=== PATIENT | male | born 1990 | race African-American/Black ===

== ENCOUNTER 2017-03-14 23:19 | Inpatient (IN) ==
[2017-03-14] MEDS ORDERED: SODIUM CHLORIDE 0.9% 1,000 ML IV STA (23:53)
--- NOTE | 2017-03-15 00:02 | Emergency Department Note ---
Arrival - Arrival Chief Complaint: Sickle Cell Stated Complaint: Sickle Cell ED Nursing Triage Note: Patient to ED via EMS from [facility] in [place] with c/o SCC. Patient is scheduled to have blood transfusion in [place] on Friday but for the past 2 days patient has been in severe pain all over and could not wait anymore. patient was given ativan 2mg prior to leaving [facility]. Mode of Arrival: Stretcher Limitations: No Limitations Source: Patient, Old Records Reviewed Time Seen by Provider: 03/14/17 23:53 - History of Present Illness HPI Narrative: This 26-year-old black male sickle cell patient currently residing in [facility] for psychiatric disorders presents with 2 days of progressive severe joint pain from his sickle cell disease in its usual distribution. He denies chills, fever, or shortness of breath. Currently he is lethargic after receiving Ativan at the [facility] before leaving. Onset (ago): day(s) (Patient presents with 2 days of symptoms) Allergies/Adverse Reactions: Allergies Allergy/AdvReac Type Severity Reaction Status Date / Time morphine Allergy HIVES Verified 03/14/17 23:31 naproxen [From Aleve] Allergy HIVES Verified 03/14/17 23:31 Review of System - Review of System 12 point system: reviewed and no additional remarkable complaints except as stated - Review of System Constitutional: Present: as per HPI Musculoskeletal: Present: as per HPI Psychiatric: Present: as per HPI Medical,Surgical,& Family Hx - Medical History Cardio: History of: Cardiovascular Problems (heart murmur) Psychological: History of: Psychiatric Problems (insomnia , thought disorder) Hematology: History of: Sickle Cell Disease - Surgical History Abdominal Surgeries: Surgical HX of: Cholecystectomy Orthopedic Surgeries: Surgical HX of;: Orthopedic Surgery (right hip surgery) - Social History Smoking Status: Smoker, status unknown Frequency of Alcohol Use: None Type of Drug Use: None Exam Physical Examination: GENERAL: Well developed, well nourished black male in no acute distress. HEENT: Normocephalic. No trauma. Moist mucous membranes. EOMI. PERRLA. ENT NML NECK: Supple. No adenopathy. CARDIAC: Regular. No murmurs. Heart rate 78 CHEST: Clear to auscultation. No respiratory distress. O2 sat 93% ABDOMEN: Soft. Nontender. Active bowel sounds. EXTREMITIES: No trauma. Complains of pain with range of motion all large joints. No pedal edema. SKIN: No diaphoresis. No rash. NEURO: Alert. Neuro intact no focal deficits. Vital Signs: Vital Signs Temperature 97.7 F 03/14/17 23:19 Pulse Rate 78 03/14/17 23:19 Respiratory Rate 18 03/15/17 01:14 Blood Pressure 134/52 03/14/17 23:19 O2 Sat by Pulse Oximetry 98 03/15/17 01:05 Course - Reevaluation(s) Reevaluation #1: Patient advised of need of stabilization with admission. - Consultations Consultation #1: Discussed with hospitalist service who will admit for further evaluation treatment. Results - Labs CBC & BMP: 03/14/17 00:30 03/14/17 00:30 Labs: I reviewed the laboratory noted the elevated white blood cell count, reticulocyte count, depressed hematocrit, and elevated LDH. - Diagnostic Findings Procedure: Chest x-ray: image reviewed by me, report reviewed by me (Severe cardiomegaly with pulmonary venous hypertension redistribution cephalad) Disposition Clinical Impression: Sickle cell crisis, Cardiomegaly Case discussed with: patient Disposition: Still a Patient Condition: Guarded Time of Disposition: 01:21
[2017-03-15] MEDS ORDERED: MEPERIDINE 25 MG/1 ML VIAL IV STA ×2 (00:52→00:53)
[2017-03-15] MEDS ORDERED: ONDANSETRON 4 MG/2 ML VIAL IV STA (00:53)
[2017-03-15] MEDS ORDERED: ONDANSETRON 4 MG/2 ML VIAL ONE (00:55)
[2017-03-15] MEDS ORDERED: MEPERIDINE 25 MG/1 ML VIAL ONE (00:56)
[2017-03-15 01:03] LABS: Basophils # 0.1 10*3/uL (0.0-0.2); Basophils % 0.4 % (0.0-0.8); Eosinophils # 0.9 10*3/uL (0.0-0.87); Eosinophils % 4.1 % (0.00-10.9); Hematocrit 19.3 VOL% (42.0-52.0); Hemoglobin 7.1 GM/DL (14.0-18.0); Immature Granulocytes % 2.8 %; Lymphocytes # 2.7 10*3/uL (1.4-4.0); Lymphocytes % 12.9 % (21.2-54.2); Mean Corpuscular HGB Conc 36.8 GM/DL (32-36); Mean Corpuscular Hemoglobin 35 PG (27-34); Mean Corpuscular Volume 94.1 FL (87-102); Mean Platelet Volume 11.9 FL (9.6-12.0); Monocytes # 2.5 10*3/uL (0.11-0.8); Monocytes % 11.6 % (1.7-12.7); NRBC # 0.85 10*3/uL; Neutrophils # 14.4 10*3/uL (1.4-7.4); Neutrophils % 68.2 % (38.7-73.9); Platelet Count 210 T/CUMM (130-400); Red Blood Count 2.05 MC/CUMM (3.8-5.5); Red Cell Distribution Width 23.3 % (9.3-17.3); White Blood Count 21.2 T/CUMM (4-12)
[2017-03-15 01:09] LABS: Albumin 3.6 G/DL (3.4-5.0); Bilirubin,Total 4.3 MG/DL (0.2-1.0); Osmolality,Calculated 280.5 MOS/KG (273-304); Potassium 5.3 MMOL/L (3.5-5.1); Total Protein 6.3 G/DL (6.4-8.3)
--- NOTE | 2017-03-15 02:37 | Hospitalist History & Physical ---
<Yumi Velazquez - Last Filed: 03/15/17 02:51> Assessment and Plan - Time spent with patient Time spent with patient: Greater than 30 minutes (1) Sickle cell crisis Status: Chronic Assessment and plan: Patient will receive IV fluids for hydration, pain medications as needed, and oxygen. Will need to find out patient's current home medications and continue them as appropriate. Current Visit: Yes (2) Leukocytosis Status: Acute Assessment and plan: Will draw blood cultures and look for source of infection. Will start patient on Rocephin in the meantime. Current Visit: Yes (3) Anemia Status: Chronic Assessment and plan: Will type and match patient for possible blood transfusion. Will recheck lab work. Current Visit: Yes History of Present Illness Chief complaint: leg, back, and chest pain History of present illness: Called to the ER for Mr. Miryam Donohue who is a 26 year old male that is a resident of [facility] in [place] where he is treated for insomnia and thought disorder. He presents to the ER tonight complaining of leg, back, and chest pain that started 2 weeks ago and has progressively gotten worse. Patient is followed by a physician at [facility] for his sickle cell and is suppose to have a blood transfusion in 2 days. He denies fever or shortness of breath but admits to increased weakness. He received 2mg of Ativan for agitation before leaving [facility]. In the ER, he received 1L NS, total of 50mg of Demerol IV, and Zofran 4mg IV. His WBC was 21k, H/H 7/19, Retic 26, K 5.3, LDH 635, AST 134, ALT 90, Bilirubin 4.3. He is a poor historian. Upon admission, he will receive NS @ 150mL/hr, pain medication as needed, oxygen , and Rocephin. Allergies Allergy/AdvReac Type Severity Reaction Status Date / Time morphine Allergy HIVES Verified 03/14/17 23:31 naproxen [From Aleve] Allergy HIVES Verified 03/14/17 23:31 Medical,Surgical,& Family Hx - Medical History Cardio: History of: Cardiovascular Problems (heart murmur) Psychological: History of: Psychiatric Problems (insomnia , thought disorder) Hematology: History of: Sickle Cell Disease - Surgical History Abdominal Surgeries: Surgical HX of: Cholecystectomy Orthopedic Surgeries: Surgical HX of;: Orthopedic Surgery (right hip surgery) - Social History Smoking Status: Smoker, status unknown Frequency of Alcohol Use: None Type of Drug Use: None Lives With:: residential center Functional capacity: independent ambulation - Constitutional Constitutional: Present: fatigue, weakness. Absent: chills, fever(s), headache( s), night sweats - Cardiovascular Cardiovascular: Present: chest pain at rest. Absent: dyspnea - Respiratory Respiratory: Absent: cough, dyspnea - Gastrointestinal Gastrointestinal: Absent: abdominal pain, diarrhea, nausea, vomiting - Musculoskeletal Musculoskeletal: Present: back pain, muscle cramps Exam - Constitutional Vitals: Period Temp Pulse Resp BP Sys/Rowley Pulse Ox Last 24 Hr 97.7 F-97.7 F 78-78 18-20 134-134/52-52 93-98 General appearance: normal weight, other (Somnolent but will awaken to speech. ) - Head Head exam: Present: normal inspection, normocephalic - Eye Eye exam: Present: EOMI Pupils: Present: PARISH, normal accommodation - ENT ENT exam: Present: normal exam - Neck Neck exam: Present: normal inspection - Respiratory Respiratory exam: Present: clear to auscultation bilaterally. Absent: accessory muscle use (Respirations even and non-labored. Symmetrical rise and fall of chest. ) - Cardiovascular Cardiovascular exam: Present: regular rate and rhythm - GI/Abdominal GI/Abdominal exam: Present: normal bowel sounds, soft. Absent: distended, tenderness - Extremities Exam Extremities exam: Present: normal inspection, normal capillary refill, full ROM - Back Exam Back exam: Present: normal inspection - Neurological Exam Neurological exam: Present: alert, oriented X3 - Psychiatric Psychiatric exam: Present: flat affect - Skin Skin exam: Present: normal color, warm, dry Results - Labs CBC & BMP: 03/14/17 00:30 03/14/17 00:30 Lab Results: I have reviewed the past 24 hour labs - Diagnostic Findings Procedure: Chest x-ray: image reviewed by me (Slight cardiomegaly, otherwise normal) <Rebeka Desouza - Last Filed: 03/15/17 04:18> History of Present Illness History of present illness: Mr. Miryam Donohue is a 26 year old male with a history of pyschiatry disorder and sickle cell disease is on admission for pain crisis.His WBC is noted to be high at 21.2 and potassium of 5.3.Patient was seen, examined and discussed with the [employer] Plan IVF IV pain meds,antiemetics, BC, UA, UC, CXR Empiric IV Rocephin Repeat Labs, retic count in am. Reconcile home meds Exam - Constitutional Vitals: Period Temp Pulse Resp BP Sys/Rowley Pulse Ox Last 24 Hr 97.7 F-98.1 F 78-95 18-22 128-141/52-78 93-100 Results - Labs CBC & BMP: 03/14/17 00:30 03/14/17 00:30
[2017-03-15] MEDS ORDERED: SODIUM POLYSTYRENE SULFATE 15 GM/60 ML BOTTLE PO STA (02:42)
[2017-03-15] MEDS: SODIUM CHLORIDE 0.9% 1,000 ML IV SCH ×3 (03:07→17:28)
[2017-03-15] MEDS: HYDROmorphone 2 MG/1 ML VIAL IV SCH ×7 (03:10→21:53)
[2017-03-15] MEDS: cefTRIAXone 1,000 MG in SODIUM CHLORIDE 0.9% 100 ML IV SCH ×2 (03:23→15:41)
[2017-03-15] MEDS ORDERED: PNEUMOCOCCAL VACCINE (13 VALENT) 0.5 ML SYRINGE IM ONE (03:58)
[2017-03-15 04:59] LABS: Anisocytosis 2+; Band Neutrophils 2 % (0-10); Elliptocytes 1+; Eosinophils 5 % (0-10); Hypochromasia 2+; Lymphocytes 8 % (20-55); Macrocytosis 2+; Metamyelocytes 2 %; Microcytosis 1+; Nucleated Red Blood Cells 8 (0-5); Ovalocytes 2+; Platelet Estimate Normal; Segmented Neutrophils 74 % (50-85); Sickle Cells 1+; Total Cells Counted 100
[2017-03-15 05:00] LABS: Target Cells 1+
[2017-03-15 06:33] LABS: Albumin 3.4 G/DL (3.4-5.0); Bilirubin,Total 3.6 MG/DL (0.2-1.0); Calcium 8.8 MG/DL (8.5-10.1); Osmolality,Calculated 277.5 MOS/KG (273-304); Potassium 5.6 MMOL/L (3.5-5.1); Total Protein 6.1 G/DL (6.4-8.3)
[2017-03-15 07:13] LABS: Basophils # 0.1 10*3/uL (0.0-0.2); Basophils % 0.3 % (0.0-0.8); Eosinophils # 0.7 10*3/uL (0.0-0.87); Hematocrit 18.9 VOL% (42.0-52.0); Hemoglobin 6.9 GM/DL (14.0-18.0); Immature Granulocytes % 4.1 %; Immature Granulocytes Absolute 0.94 #; Lymphocytes # 3.4 10*3/uL (1.4-4.0); Lymphocytes % 14.7 % (21.2-54.2); Mean Corpuscular HGB Conc 36.5 GM/DL (32-36); Mean Corpuscular Hemoglobin 34 PG (27-34); Mean Platelet Volume 11.9 FL (9.6-12.0); Monocytes # 2.6 10*3/uL (0.11-0.8); Monocytes % 11.4 % (1.7-12.7); Neutrophils # 15.2 10*3/uL (1.4-7.4); Neutrophils % 66.5 % (38.7-73.9); Platelet Count 182 T/CUMM (130-400); Red Blood Count 2.01 MC/CUMM (3.8-5.5); Red Cell Distribution Width 22.8 % (9.3-17.3); White Blood Count 22.9 T/CUMM (4-12)
--- NOTE | 2017-03-15 07:21 | XRay Report ---
Exam: XR chest 1V portable Date: 03/14/2017 11:56 PM Indication: Shortness of breath Comparison: None Technical: AP portable Findings: Cardiomegaly is present. External cardiac leads are present. Mediastinum and bony structures reveal no acute findings. Impression: 1. Cardiomegaly without decompensation. PROCEDURE INTERPRETED AT [facility] DEPARTMENT OF RADIOLOGY Final Report Signed by: Dr. Ajit Hirsch
[2017-03-15 07:59] LABS: Band Neutrophils 1 % (0-10); Eosinophils 2 % (0-10); Hypochromasia 2+; Lymphocytes 16 % (20-55); Microcytosis 1+; Nucleated Red Blood Cells 3 (0-5); Segmented Neutrophils 74 % (50-85); Sickle Cells 1+; Total Cells Counted 100
[2017-03-15 08:00] LABS: Howell-Jolly Bodies Few; Platelet Estimate Adequate; Spherocytes Few
--- NOTE | 2017-03-15 08:12 | EKG Report ---
Stationary ECG Study [facility] Test Date: 03/15/2017 8:13:10 AM Pat Name: MIGUE BAINS Department: Room: 432 Gender: M Real Estate Development Manager: UZAIR : 1990 Requested by: Yumi Velazquez Order Number: [id number] Reading MD: HIRO IRAHETA Intervals [place] Rate: 92 P: 59 NV: 196 QRS: 86 QRSD: 102 T: 6 QT: 343 QTc: 393 Interpretive Statements SINUS RHYTHM LEFT VENTRICULAR HYPERTROPHY AND ST-T CHANGE Electronically Signed On 03-17-17 10:55:04 CDT by HIRO IRAHETA [email or web address]
[2017-03-15] MEDS: PANTOPRAZOLE 40 MG TABLET PO SCH (08:49)
[2017-03-15] MEDS: ENOXAPARIN 40 MG/0.4 ML SYRINGE SUBCUT SCH (08:51)
--- NOTE | 2017-03-15 12:54 | Hospitalist Progress Note ---
Hospitalist: Subjective Interval history: 26 year old male who is a resident of [facility] in [place] where he was being treated for insomnia and getting mental health. Patient was admitted with sickle cell crisis. He still reports body aches and pains but is not in any sort of distress. Exam - Constitutional Vitals: Period Temp Pulse Resp BP Sys/Rowley Pulse Ox Last 24 Hr 97.7 F-98.8 F 78-95 18-22 128-145/52-78 92-100 Exam: General: No Acute Distress HEENT: Normocephalic, atraumatic, Extra ocular movements intact Neck: Supple, No JVD Chest: Clear to auscultation B/L CV: S1 + S2 audible without murmur, gallop or rub Abd: soft, NT, Non-distended, BS + Ext: No edema Skin: No purpura, bruising or rash Rheumatologic: No Joint deformities Neurologic: Strength 5/5 all extremities, no gross sensory deficits Results - Labs CBC & BMP: 03/15/17 04:57 03/15/17 04:57 Lab Results: I have reviewed the past 24 hour labs - Impressions Sickle cell painful crisis Status: Acute Assessment and plan: Patient is getting IV fluids for hydration, pain medications as needed, and oxygen. Patient is getting IV Dilaudid 2 mg every 3 hours as needed as well as [place] 10 mg as needed Current Visit: Yes Anemia of sickle cell disease Status: Acute Assessment and plan: Patient will be transfused as needed to keep his hematocrit around 25 Current Visit: Yes Leukocytosis Status: Acute Assessment and plan: I suspect this is from his sickle cell crisis, will follow up on blood cultures , will discontinue Rocephin if no evidence of infection Current Visit: Yes Hyperkalemia Status: Acute Assessment and plan: This is mild, will continue to monitor Current Visit: Yes Hyperbilirubinemia Status: Acute Assessment and plan: Appears to be due to hemolysis as his LDH was also elevated at 635, monitor periodically Current Visit: Yes DVT prophylaxis with Lovenox
[2017-03-15] MEDS ORDERED: ACETAMINOPHEN 500 MG TABLET PO PRN (16:47)
[2017-03-16] MEDS: SODIUM CHLORIDE 0.9% 1,000 ML IV SCH ×3 (00:47→14:51)
[2017-03-16] MEDS: HYDROmorphone 2 MG/1 ML VIAL IV SCH ×9 (00:47→22:47)
[2017-03-16] MEDS: cefTRIAXone 1,000 MG in SODIUM CHLORIDE 0.9% 100 ML IV SCH ×2 (03:31→17:01)
[2017-03-16] MEDS: ONDANSETRON 4 MG/2 ML VIAL IV PRN ×3 (05:23→13:37)
[2017-03-16 06:48] LABS: Basophils # 0.1 10*3/uL (0.0-0.2); Basophils % 0.3 % (0.0-0.8); Eosinophils # 0.6 10*3/uL (0.0-0.87); Hemoglobin 6.7 GM/DL (14.0-18.0); Immature Granulocytes % 1.9 %; Immature Granulocytes Absolute 0.57 #; Lymphocytes # 2.7 10*3/uL (1.4-4.0); Lymphocytes % 8.8 % (21.2-54.2); Mean Corpuscular HGB Conc 38.5 GM/DL (32-36); Mean Corpuscular Hemoglobin 34 PG (27-34); Mean Corpuscular Volume 88.8 FL (87-102); Mean Platelet Volume 11.1 FL (9.6-12.0); Monocytes # 3.8 10*3/uL (0.11-0.8); Monocytes % 12.4 % (1.7-12.7); NRBC # 1.45 10*3/uL; Neutrophils % 74.6 % (38.7-73.9); Platelet Count 212 T/CUMM (130-400); Red Blood Count 1.96 MC/CUMM (3.8-5.5); Red Cell Distribution Width 22.5 % (9.3-17.3); White Blood Count 30.8 T/CUMM (4-12)
[2017-03-16 07:12] LABS: Calcium 8.5 MG/DL (8.5-10.1); Osmolality,Calculated 274.8 MOS/KG (273-304); Potassium 4.8 MMOL/L (3.5-5.1)
[2017-03-16 07:17] LABS: Hematocrit 17.4 VOL% (42.0-52.0)
[2017-03-16 07:41] LABS: Eosinophils 3 % (0-10); Hypochromasia 1+; Lymphocytes 12 % (20-55); Nucleated Red Blood Cells 1 (0-5); Platelet Estimate Adequate; Polychromasia Slight; Segmented Neutrophils 76 % (50-85); Sickle Cells 2+; Target Cells Slight; Total Cells Counted 100
[2017-03-16] MEDS: ENOXAPARIN 40 MG/0.4 ML SYRINGE SUBCUT SCH (09:07)
[2017-03-16] MEDS: PANTOPRAZOLE 40 MG TABLET PO SCH (09:12)
[2017-03-16] MEDS ORDERED: SODIUM CHLORIDE 0.9% 250 ML IV PRN (09:23)
--- NOTE | 2017-03-16 12:54 | Hospitalist Progress Note ---
Hospitalist: Subjective Interval history: 26 year old male who is a resident of [facility] in [place] where he was being treated for insomnia and getting mental health. Patient was admitted with sickle cell crisis. He reports body aches and pains but is not in any sort of distress. Exam - Constitutional Vitals: Period Temp Pulse Resp BP Sys/Rowley Pulse Ox Last 24 Hr 99.3 F-100.5 F 88-129 20-40 125-143/60-78 92-99 Exam: General: No Acute Distress HEENT: Normocephalic, atraumatic, Extra ocular movements intact Neck: Supple, No JVD Chest: Clear to auscultation B/L CV: S1 + S2 audible without murmur, gallop or rub Abd: soft, NT, Non-distended, BS + Ext: No edema Skin: No purpura, bruising or rash Rheumatologic: No Joint deformities Neurologic: Strength 5/5 all extremities, no gross sensory deficits Results - Labs CBC & BMP: 03/16/17 06:28 03/16/17 06:28 - Impressions - Impressions Sickle cell painful crisis Status: Acute Assessment and plan: Patient is getting IV fluids for hydration, folic acid, pain medications as needed, and oxygen. Patient is getting IV Dilaudid 2 mg every 3 hours as needed as well as [place] 10 mg as needed Current Visit: Yes Anemia of sickle cell disease Status: Acute Assessment and plan: Patient will be transfused as needed to keep his hematocrit around 25. He was transfused 2 unit PRBCs 03/15 Current Visit: Yes Leukocytosis Status: Acute Assessment and plan: I suspect this is from his sickle cell crisis, monitoring blood cultures, will discontinue Rocephin if no evidence of infection Current Visit: Yes Hyperkalemia Status: Acute Assessment and plan: This resolved without treatment Current Visit: Yes Hyperbilirubinemia Status: Acute Assessment and plan: Appears to be due to hemolysis as his LDH was also elevated, monitor periodically Current Visit: Yes DVT prophylaxis with Lovenox
[2017-03-16] MEDS: OLANZapine 5 MG TABLET PO SCH (13:36)
[2017-03-16 14:08] LABS: Apearance,Urine CLEAR (Clear); Bilirubin,Urine Negative (Negative); Blood, Urine Moderate mg/dL (Negative); Glucose,Urine (UA) Negative (Negative); Ketones,Urine Negative (Negative); Mucus,Urine Occasional /LPF (Occasional); Nitrite,Urine Negative (Negative); Protein,Urine 100 MG/DL; RBC,Urine 1 /HPF (0-4); Urine Color Amber (Yellow); Urine Specific Gravity 1.008 (1.001-1.035); WBC,Urine 2 /HPF (0-6)
--- NOTE | 2017-03-16 14:09 | XRay Report ---
Exam: XR chest 1V portable Date: 03/16/2017 9:24 AM Indication: Fever history of sickle cell disease Comparison: 03/15/2017 Technical: AP Findings: Mild cardiac enlargement present. Interstitial edema present and tiny effusions in the bases bilaterally. Oxygen tubing superimposes exam. Mediastinum is intact. No pneumothorax. Impression: 1. Cardiomegaly with mild interstitial edema and probable component of acute chest syndrome with history of sickle cell disease PROCEDURE INTERPRETED AT [facility] DEPARTMENT OF RADIOLOGY Final Report Signed by: Dr. Ajit Hirsch
[2017-03-16] MEDS ORDERED: HYDROmorphone 2 MG/1 ML VIAL IV STA (16:23)
[2017-03-16] MEDS: FOLIC ACID 1 MG TABLET PO SCH (22:47)
[2017-03-17] MEDS: HYDROmorphone 2 MG/1 ML VIAL IV SCH ×12 (00:11→23:04)
[2017-03-17] MEDS: SODIUM CHLORIDE 0.9% 1,000 ML IV SCH ×5 (01:18→23:06)
[2017-03-17] MEDS: cefTRIAXone 1,000 MG in SODIUM CHLORIDE 0.9% 100 ML IV SCH ×2 (04:04→15:47)
[2017-03-17] MEDS: ONDANSETRON 4 MG/2 ML VIAL IV PRN ×2 (04:06→07:55)
[2017-03-17 05:57] LABS: Basophils # 0.1 10*3/uL (0.0-0.2); Basophils % 0.2 % (0.0-0.8); Eosinophils # 0.4 10*3/uL (0.0-0.87); Eosinophils % 1.5 % (0.00-10.9); Hematocrit 20.1 VOL% (42.0-52.0); Immature Granulocytes % 1.2 %; Immature Granulocytes Absolute 0.34 #; Lymphocytes # 2.3 10*3/uL (1.4-4.0); Lymphocytes % 8.2 % (21.2-54.2); Mean Corpuscular HGB Conc 38.3 GM/DL (32-36); Mean Corpuscular Hemoglobin 33 PG (27-34); Mean Corpuscular Volume 85.9 FL (87-102); Mean Platelet Volume 11.9 FL (9.6-12.0); Monocytes # 3.8 10*3/uL (0.11-0.8); Monocytes % 13.7 % (1.7-12.7); NRBC # 1.13 10*3/uL; Neutrophils # 20.6 10*3/uL (1.4-7.4); Neutrophils % 75.2 % (38.7-73.9); Platelet Count 197 T/CUMM (130-400); Red Blood Count 2.34 MC/CUMM (3.8-5.5); Red Cell Distribution Width 19.9 % (9.3-17.3); White Blood Count 27.4 T/CUMM (4-12)
[2017-03-17 06:08] LABS: Hemoglobin 7.7 GM/DL (14.0-18.0)
[2017-03-17 06:27] LABS: Elliptocytes Few; Eosinophils 1 % (0-10); Giant Platelets Few; Hypochromasia 1+; Lymphocytes 10 % (20-55); Macrocytosis Slight; Nucleated Red Blood Cells 5 (0-5); Platelet Estimate Adequate; Polychromasia Slight; Segmented Neutrophils 75 % (50-85); Sickle Cells 1+; Target Cells Few; Total Cells Counted 100
[2017-03-17] MEDS ORDERED: SODIUM CHLORIDE 0.9% 250 ML IV PRN ×2 (07:43→08:23)
--- NOTE | 2017-03-17 07:46 | Hematology Consult ---
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 I will hold off on transfer to a tertiary center for red cell exchange for now. I would go ahead and give 2 units of packed red cells to decrease the concentration of his hemoglobin SS red cells. I agree with hydration and antibiotics. He needs encouragement to take deep breaths to open up more lung tissue to recruit further alveolar oxygen exchange. If he does acutely decompensated over the next day or 2, there would be no choice but to transfer him to a tertiary center for red cell exchange. This would most likely be manifested by worsening oxygen saturations. Current Visit: Yes (2) Sickle cell crisis Status: Chronic Current Visit: Yes (3) Leukocytosis Status: Acute Current Visit: Yes (4) Anemia Status: Chronic Current Visit: Yes History of Present Illness - Consult Narrative History of present illness: Mr. Miryam Donohue is a 26 year old male with a history of sickle cell disease who is currently admitted with a sickle cell pain crisis. Chest x-ray yesterday was consistent with bilateral infiltrates and interstitial edema. Is also having mild hypoxia requiring 2 L nasal cannula. There is concern for acute chest syndrome so hematology was consulted for evaluation. He received 2 units of blood yesterday and his hemoglobin has improved to 7.7. He takes shallow breaths upon my evaluation today and he has bilateral crackles at the bases. This is most likely related to atelectasis from poor inhalation. He is on Rocephin for antimicrobial coverage. He is being aggressively rehydrated. He appears stable and is not in any acute distress at this time. His biggest complaint is of pain on bilateral rib cages. He states his usual pain with pain crises is in his back and legs. CC: Rach Hall MD - Home Medications and Allergies Home Medications: Home Medications Medication Instructions Recorded Confirmed Type ARIPiprazole [Aripiprazole] 5 mg PO DAILY 03/15/17 03/16/17 History Citalopram [CeleXA] 20 mg PO DAILY 03/15/17 03/15/17 History Deferasirox [Jadenu] 360 mg PO DAILY 03/15/17 03/16/17 History Duloxetine HCl [Duloxetine] 60 mg PO DAILY 03/15/17 03/16/17 History Folic Acid 0.8 mg PO DAILY 03/15/17 03/16/17 History Hydrocodone/Acetaminophen [[place] 1 each PO Q4-6H PRN 03/15/17 03/15/17 History 10-325 Tablet] Morphine Sulfate [Morphine Sulfate 30 mg PO BID PRN 03/15/17 03/15/17 History ER] OLANZapine [Olanzapine] 10 mg PO DAILY 03/15/17 03/16/17 History Oxycodone HCl/Acetaminophen 1 each PO Q6HR 03/15/17 03/16/17 History [Percocet 10-325 mg Tablet] traMADol TAB [Ultram] 50 mg PO Q6H PRN 03/15/17 03/15/17 History traZODone [Desyrel] 150 mg PO BEDTIME 03/15/17 03/15/17 History Allergies/Adverse Reactions: Allergies Allergy/AdvReac Type Severity Reaction Status Date / Time morphine Allergy HIVES Verified 03/14/17 23:31 naproxen [From Aleve] Allergy HIVES Verified 03/14/17 23:31 Medical,Surgical,& Family Hx - Medical History Cardio: History of: Cardiovascular Problems (heart murmur) Psychological: History of: Psychiatric Problems (insomnia , thought disorder) Hematology: History of: Sickle Cell Disease - Surgical History Abdominal Surgeries: Surgical HX of: Cholecystectomy Orthopedic Surgeries: Surgical HX of;: Orthopedic Surgery (right hip surgery) - Social History Smoking Status: Smoker, status unknown Frequency of Alcohol Use: None Type of Drug Use: None 12 point system: reviewed and no additional remarkable complaints except as stated - Constitutional Constitutional: Absent: chills, fever(s) - Respiratory Respiratory: Present: dyspnea. Absent: cough, wheezing - Gastrointestinal Gastrointestinal: Absent: abdominal pain - Musculoskeletal Musculoskeletal ROS: Present: as per HPI Exam - Constitutional Vitals: Period Temp Pulse Resp BP Sys/Rowley Pulse Ox Last 24 Hr 5 F-100.2 F 88-120 16-44 124-155/67-90 89-99 General appearance: normal weight, no acute distress - Head Head Exam: Present: normocephalic, atraumatic - Eye Eye Exam: Present: EOMI Pupils: Present: PERRL - ENT ENT exam: Present: normal exam, normal oropharynx - Neck Neck exam: Present: lymphadenopathy, thyromegaly - Respiratory Respiratory exam: Present: chest wall tenderness, other (Crackles at bilateral bases). Absent: accessory muscle use, wheezes - Cardiovascular Cardiovascular exam: Present: tachycardia. Absent: JVD, systolic murmur - GI/Abdominal GI/Abdominal exam: Present: soft. Absent: ascites, distended, mass - Neurological Exam Neurological exam: Present: alert, oriented X3 - Psychiatric Psychiatric exam: Present: normal affect, normal mood - Skin Skin exam: Present: warm, dry Results - Labs CBC & BMP: 03/17/17 04:44 03/16/17 06:28 Lab Results: I have reviewed the past 24 hour labs - Diagnostic Findings Procedure: Chest x-ray: report reviewed by me
[2017-03-17] MEDS: FOLIC ACID 1 MG TABLET PO SCH ×2 (08:01→20:37)
[2017-03-17] MEDS: ENOXAPARIN 40 MG/0.4 ML SYRINGE SUBCUT SCH (08:01)
[2017-03-17] MEDS: PANTOPRAZOLE 40 MG TABLET PO SCH (08:01)
[2017-03-17] MEDS: OLANZapine 5 MG TABLET PO SCH (08:02)
--- NOTE | 2017-03-17 15:55 | Hospitalist Progress Note ---
Hospitalist: Subjective Interval history: 26-year-old -[place]oc[place] male with sickle cell crisis and acute chest syndrome. He still has sickle cell pain, but is also being transfused and managed medically. Exam - Constitutional Vitals: Period Temp Pulse Resp BP Sys/Rowley Pulse Ox Last 24 Hr 5 F-100.2 F 90-120 16-44 130-155/64-90 89-993 Exam: General: No Acute Distress HEENT: Normocephalic, atraumatic, Extra ocular movements intact Neck: Supple, No JVD Chest: Clear to auscultation B/L CV: S1 + S2 audible without murmur, gallop or rub Abd: soft, NT, Non-distended, BS + Ext: No edema Skin: No purpura, bruising or rash Rheumatologic: No Joint deformities Neurologic: Strength 5/5 all extremities, no gross sensory deficits Results - Labs CBC & BMP: 03/17/17 04:44 03/16/17 06:28 - Impressions - Impressions Sickle cell painful crisis Status: Acute Assessment and plan: Patient is getting IV fluids for hydration, folic acid, pain medications as needed, and oxygen. Patient is getting IV Dilaudid 2 mg every 3 hours as needed as well as [place] 10 mg as needed. Appreciate hematology following Current Visit: Yes Anemia of sickle cell disease Status: Acute Assessment and plan: Patient will be transfused as needed to keep his hematocrit around 25. He was transfused 2 unit PRBCs 03/16 & 03/17 Current Visit: Yes Leukocytosis Status: Acute Assessment and plan: I suspect this is from his sickle cell crisis, monitoring blood cultures, will discontinue Rocephin if no evidence of infection Current Visit: Yes Hyperkalemia Status: Acute Assessment and plan: This resolved without treatment Current Visit: Yes Hyperbilirubinemia Status: Acute Assessment and plan: Appears to be due to hemolysis as his LDH was also elevated, monitor periodically Current Visit: Yes DVT prophylaxis with Lovenox
[2017-03-18] MEDS: HYDROmorphone 2 MG/1 ML VIAL IV SCH ×12 (00:09→22:22)
[2017-03-18] MEDS: cefTRIAXone 1,000 MG in SODIUM CHLORIDE 0.9% 100 ML IV SCH ×2 (03:51→14:45)
[2017-03-18] MEDS: SODIUM CHLORIDE 0.9% 1,000 ML IV SCH ×2 (06:36→14:46)
--- NOTE | 2017-03-18 07:59 | Hematology Progress Note ---
Assessment and Plan (1) Acute chest syndrome Status: Acute Current Visit: Yes (2) Sickle cell crisis Status: Chronic Current Visit: Yes (3) Leukocytosis Status: Acute Current Visit: Yes (4) Anemia Status: Chronic Current Visit: Yes Hematology Subjective PN Interval history: Mr. Whipple states that his pain is slightly improved today. He still requires 4 L of oxygen to keep his sats above 90%. He is sitting in bed this morning and does not appear to be in acute distress. He was transfused 2 units of blood yesterday. He states he was previously on monthly red cell exchange program at [facility]. He has not done this now 5 or 6 months. He states that each time he had an exchange done he felt worse for 1-2 days so he stopped going. He did note that he had less pain crisis though while he remained on the exchange program. His CBC is pending this morning. I also ordered a reticulocyte count and LDH. I discussed with him today about the possible need of transfer to [facility] for a red cell exchange. I told him that he appears stable and is slowly improving so we will hold off for now but if he worsens at all we will need to do so. Also, if he does not improve much further over the next 24- 48 hours, we should consider it then. He is requesting an increase in his pain medications and I told him he needs to discuss this with his primary doctor when they round on him. Exam - Constitutional Vitals: Period Temp Pulse Resp BP Sys/Rowley Pulse Ox Last 24 Hr 98.3 F-99.8 F 90-131 16-22 130-168/64-89 90-993 General appearance: normal weight, no acute distress - Head Head Exam: Present: normocephalic, atraumatic - Eye Eye Exam: Present: EOMI Pupils: Present: PERRL - ENT ENT exam: Present: normal exam, normal oropharynx - Neck Neck exam: Absent: lymphadenopathy, thyromegaly - Respiratory Respiratory exam: Absent: accessory muscle use, wheezes - Cardiovascular Cardiovascular exam: Present: tachycardia. Absent: JVD, systolic murmur - GI/Abdominal GI/Abdominal exam: Present: soft. Absent: distended, firm, mass - Neurological Exam Neurological exam: Present: alert, oriented X3 - Psychiatric Psychiatric exam: Present: normal affect, normal mood - Skin Skin exam: Present: warm, dry Results - Labs CBC & BMP: 03/17/17 04:44 03/16/17 06:28 Lab Results: I have reviewed the past 24 hour labs
[2017-03-18 08:19] LABS: Basophils % 0.2 % (0.0-0.8); Eosinophils # 0.3 10*3/uL (0.0-0.87); Eosinophils % 1.2 % (0.00-10.9); Hematocrit 22.7 VOL% (42.0-52.0); Hemoglobin 8.7 GM/DL (14.0-18.0); Immature Granulocytes % 0.9 %; Immature Granulocytes Absolute 0.21 #; Lymphocytes # 1.1 10*3/uL (1.4-4.0); Lymphocytes % 4.7 % (21.2-54.2); Mean Corpuscular HGB Conc 38.3 GM/DL (32-36); Mean Corpuscular Hemoglobin 32 PG (27-34); Mean Corpuscular Volume 82.2 FL (87-102); Mean Platelet Volume 11.7 FL (9.6-12.0); Monocytes # 3.4 10*3/uL (0.11-0.8); NRBC # 0.32 10*3/uL; Neutrophils # 19.1 10*3/uL (1.4-7.4); Platelet Count 175 T/CUMM (130-400); Red Blood Count 2.76 MC/CUMM (3.8-5.5); Red Cell Distribution Width 18.8 % (9.3-17.3); White Blood Count 24.1 T/CUMM (4-12)
[2017-03-18] MEDS: OLANZapine 5 MG TABLET PO SCH (08:28)
[2017-03-18] MEDS: ENOXAPARIN 40 MG/0.4 ML SYRINGE SUBCUT SCH (08:28)
[2017-03-18] MEDS: PANTOPRAZOLE 40 MG TABLET PO SCH (08:28)
[2017-03-18] MEDS: FOLIC ACID 1 MG TABLET PO SCH ×2 (08:28→20:34)
[2017-03-18 08:41] LABS: Giant Platelets Few; Hypochromasia 1+; Lymphocytes 4 % (20-55); Macrocytosis Slight; Nucleated Red Blood Cells 4 (0-5); Platelet Estimate Normal; Polychromasia Slight; Segmented Neutrophils 86 % (50-85); Total Cells Counted 100
[2017-03-18 08:42] LABS: Sickle Cells 1+; Target Cells Few
--- NOTE | 2017-03-18 17:13 | Hospitalist Progress Note ---
Assessment and Plan (1) Sickle cell crisis Status: Chronic Assessment and plan: Continue IV fluids and IV antibiotics. Transfuse as needed. Hematology oncology following. Current Visit: Yes Hospitalist: Subjective Interval history: Patient seen and examined. No acute events overnight. Case discussed with nursing staff. Labs reviewed. Exam - Constitutional Vitals: Period Temp Pulse Resp BP Sys/Rowley Pulse Ox Last 24 Hr 98.9 F-99.8 F 93-131 18-22 153-182/70-93 90-93 Exam: Constitutional System: No distress. No tremulousness. Head: Normocephalic, atraumatic. Ears, Nose and Throat System: No pain or tenderness. No epistaxis or discharge Eyes System: Pupils equal, round, and reactive. Extraocular muscles intact. Neck: Supple, without adenopathy, No jugular venous distention. No thyromegaly, neck mass, or prior surgery apparent. Respiratory System: Chest clear to auscultation. Cardiovascular System: Heart with regular rate and rhythm. No murmur. GI System: Abdomen soft, nontender. Normo active bowel sounds present. Musculoskeletal System: limbs with no pedal edema. Full distal pulses. Normal capillary refill. Neurological System: No discernable sensory deficit. No aphasia Psychiatric System: Conversation is rational Results - Labs CBC & BMP: 03/18/17 07:40 03/16/17 06:28 Lab Results: I have reviewed the past 24 hour labs
[2017-03-18] MEDS: DOCUSATE SODIUM 100 MG CAPSULE PO PRN (20:37)
[2017-03-19] MEDS: HYDROmorphone 2 MG/1 ML VIAL IV SCH ×13 (00:30→23:30)
[2017-03-19] MEDS: SODIUM CHLORIDE 0.9% 1,000 ML IV SCH ×2 (02:00→15:20)
[2017-03-19] MEDS: cefTRIAXone 1,000 MG in SODIUM CHLORIDE 0.9% 100 ML IV SCH ×2 (03:14→15:21)
[2017-03-19 06:32] LABS: Basophils # 0.1 10*3/uL (0.0-0.2); Basophils % 0.3 % (0.0-0.8); Eosinophils % 4.3 % (0.00-10.9); Hematocrit 21.9 VOL% (42.0-52.0); Hemoglobin 8.3 GM/DL (14.0-18.0); Immature Granulocytes % 0.8 %; Immature Granulocytes Absolute 0.18 #; Lymphocytes # 2.7 10*3/uL (1.4-4.0); Mean Corpuscular HGB Conc 37.9 GM/DL (32-36); Mean Corpuscular Hemoglobin 31 PG (27-34); Mean Corpuscular Volume 82.3 FL (87-102); Mean Platelet Volume 11.6 FL (9.6-12.0); Monocytes # 3.3 10*3/uL (0.11-0.8); Monocytes % 14.7 % (1.7-12.7); Neutrophils # 15.3 10*3/uL (1.4-7.4); Neutrophils % 67.9 % (38.7-73.9); Platelet Count 201 T/CUMM (130-400); Red Blood Count 2.66 MC/CUMM (3.8-5.5); Red Cell Distribution Width 18.8 % (9.3-17.3); White Blood Count 22.6 T/CUMM (4-12)
[2017-03-19 07:02] LABS: Albumin 2.6 G/DL (3.4-5.0); Bilirubin,Total 2.9 MG/DL (0.2-1.0); Calcium 8.3 MG/DL (8.5-10.1); Magnesium 1.9 MG/DL (1.8-2.4); Osmolality,Calculated 275.7 MOS/KG (273-304); Potassium 4.2 MMOL/L (3.5-5.1); Total Protein 5.6 G/DL (6.4-8.3)
[2017-03-19 07:06] LABS: Anisocytosis 2+; Band Neutrophils 1 % (0-10); Eosinophils 3 % (0-10); Hypochromasia 2+; Lymphocytes 14 % (20-55); Macrocytosis 1+; Nucleated Red Blood Cells 1 (0-5); Poikilocytosis 3+; Segmented Neutrophils 67 % (50-85); Total Cells Counted 100
[2017-03-19 07:07] LABS: Elliptocytes 2+; Microcytosis 1+; Ovalocytes 1+; Platelet Estimate Normal; Sickle Cells 3+; Target Cells 1+
[2017-03-19 07:13] LABS: Giant Platelets 2+
--- NOTE | 2017-03-19 07:46 | Hematology Progress Note ---
Assessment and Plan (1) Acute chest syndrome Status: Acute Current Visit: Yes (2) Sickle cell crisis Status: Chronic Current Visit: Yes (3) Leukocytosis Status: Acute Current Visit: Yes (4) Anemia Status: Chronic Current Visit: Yes Hematology Subjective PN Interval history: Mr. Biswas seems to be slowly improving each day. His hemoglobin level today remains above 8. I do not see a need for transfusion today but if it drops any further tomorrow we will likely give 2 more units of blood. He states he is able to take somewhat deeper breaths now and on lung exam he has less crackles at bilateral bases. I will get a chest x-ray tomorrow morning. I decrease his IV fluids down to 75 cc/h to prevent volume overload. At this point he is adequately hydrated. We will also check a reticulocyte count tomorrow to track his level of red cell production which is a sign of how much he is hemolyzing. Exam - Constitutional Vitals: Period Temp Pulse Resp BP Sys/Rowley Pulse Ox Last 24 Hr 98.4 F-99.8 F 88-130 18-22 139-182/70-93 85-92 General appearance: normal weight, no acute distress - Head Head Exam: Present: normocephalic, atraumatic - Eye Eye Exam: Present: EOMI Pupils: Present: PERRL - ENT ENT exam: Present: normal exam, normal oropharynx - Neck Neck exam: Absent: lymphadenopathy, thyromegaly - Respiratory Respiratory exam: Present: CTAB. Absent: accessory muscle use, decreased breath sounds, wheezes - Cardiovascular Cardiovascular exam: Present: RRR. Absent: irregular rhythm, JVD - GI/Abdominal GI/Abdominal exam: Present: soft. Absent: ascites, distended, mass - Neurological Exam Neurological exam: Present: alert, oriented X3 - Psychiatric Psychiatric exam: Present: normal affect, normal mood - Skin Skin exam: Present: warm, dry Results - Labs CBC & BMP: 03/19/17 04:56 03/19/17 04:56 Lab Results: I have reviewed the past 24 hour labs
--- NOTE | 2017-03-19 09:53 | Hospitalist Progress Note ---
Assessment and Plan (1) Sickle cell crisis Status: Chronic Assessment and plan: Continue IV antibiotics. Transfuse as needed. Hematology oncology following. Reduce IV fluid rate. Encourage ambulation and deep breathing. Incentive spirometer at bedside. Current Visit: Yes Hospitalist: Subjective Interval history: Patient seen and examined. No acute events overnight. Case discussed with nursing staff. Labs reviewed. I encouraged the patient to get up and take a shower today and move around. No need for transfusions today. Hematology note reviewed. Exam - Constitutional Vitals: Period Temp Pulse Resp BP Sys/Rowley Pulse Ox Last 24 Hr 98.4 F-99.8 F 88-101 18-22 139-182/73-93 85-92 Exam: Constitutional System: No distress. No tremulousness. Head: Normocephalic, atraumatic. Ears, Nose and Throat System: No pain or tenderness. No epistaxis or discharge Eyes System: Pupils equal, round, and reactive. Extraocular muscles intact. Neck: Supple, without adenopathy, No jugular venous distention. No thyromegaly, neck mass, or prior surgery apparent. Respiratory System: Chest clear to auscultation. Cardiovascular System: Heart with regular rate and rhythm. No murmur. GI System: Abdomen soft, nontender. Normo active bowel sounds present. Musculoskeletal System: limbs with no pedal edema. Full distal pulses. Normal capillary refill. Neurological System: No discernable sensory deficit. No aphasia Psychiatric System: Conversation is rational Results - Labs CBC & BMP: 03/19/17 04:56 03/19/17 04:56 Lab Results: I have reviewed the past 24 hour labs
[2017-03-19] MEDS: OLANZapine 5 MG TABLET PO SCH (09:55)
[2017-03-19] MEDS: ENOXAPARIN 40 MG/0.4 ML SYRINGE SUBCUT SCH (09:56)
[2017-03-19] MEDS: PANTOPRAZOLE 40 MG TABLET PO SCH (09:56)
[2017-03-19] MEDS: FOLIC ACID 1 MG TABLET PO SCH ×2 (09:56→21:35)
[2017-03-19] MEDS: DOCUSATE SODIUM 100 MG CAPSULE PO PRN ×2 (10:00→21:35)
[2017-03-20] MEDS: HYDROmorphone 2 MG/1 ML VIAL IV SCH ×11 (01:31→22:31)
[2017-03-20] MEDS: cefTRIAXone 1,000 MG in SODIUM CHLORIDE 0.9% 100 ML IV SCH ×2 (03:57→16:32)
[2017-03-20 06:05] LABS: Basophils # 0.1 10*3/uL (0.0-0.2); Basophils % 0.3 % (0.0-0.8); Eosinophils # 1.6 10*3/uL (0.0-0.87); Eosinophils % 8.2 % (0.00-10.9); Hematocrit 21.1 VOL% (42.0-52.0); Hemoglobin 7.9 GM/DL (14.0-18.0); Immature Granulocytes % 0.5 %; Lymphocytes # 3.1 10*3/uL (1.4-4.0); Lymphocytes % 16.2 % (21.2-54.2); Mean Corpuscular HGB Conc 37.4 GM/DL (32-36); Mean Corpuscular Hemoglobin 31 PG (27-34); Mean Corpuscular Volume 82.7 FL (87-102); Mean Platelet Volume 11.2 FL (9.6-12.0); Monocytes # 2.9 10*3/uL (0.11-0.8); Monocytes % 15.1 % (1.7-12.7); NRBC # 0.17 10*3/uL; Neutrophils # 11.4 10*3/uL (1.4-7.4); Neutrophils % 59.7 % (38.7-73.9); Platelet Count 226 T/CUMM (130-400); Red Blood Count 2.55 MC/CUMM (3.8-5.5); Red Cell Distribution Width 18.8 % (9.3-17.3); White Blood Count 19.1 T/CUMM (4-12)
[2017-03-20] MEDS ORDERED: SODIUM CHLORIDE 0.9% 250 ML IV PRN (06:29)
--- NOTE | 2017-03-20 06:31 | Hematology Progress Note ---
Assessment and Plan (1) Acute chest syndrome Status: Acute Current Visit: Yes (2) Sickle cell crisis Status: Chronic Current Visit: Yes (3) Leukocytosis Status: Acute Current Visit: Yes (4) Anemia Status: Chronic Current Visit: Yes Hematology Subjective PN Interval history: Mr. Witt is doing well today. He states he is still slowly improving each day. His hemoglobin today is down to 7.9. Normally I would not transfuse at this level but since we think he has acute chest syndrome we will be more aggressive a transfusion. I given 2 units of blood today. Hopefully he will continue to improve over the next few days he can be discharged home over the weekend. I am out of town from now until next Friday so I will check back in then if he is still here. If he is discharged home, he will need to follow-up with the sickle cell clinic at [facility] who follow him regularly. Exam - Constitutional Vitals: Period Temp Pulse Resp BP Sys/Rowley Pulse Ox Last 24 Hr 98 F-99.5 F 81-87 18-22 137-164/81-86 92-96 General appearance: normal weight, no acute distress - Head Head Exam: Present: normocephalic, atraumatic - Eye Eye Exam: Present: EOMI, scleral icterus Pupils: Present: PERRL - ENT ENT exam: Present: normal exam, normal oropharynx - Neck Neck exam: Absent: lymphadenopathy, thyromegaly - Respiratory Respiratory exam: Present: CTAB. Absent: wheezes - Cardiovascular Cardiovascular exam: Present: RRR. Absent: JVD - GI/Abdominal GI/Abdominal exam: Present: soft. Absent: ascites, distended, firm, mass - Neurological Exam Neurological exam: Present: alert, oriented X3 - Psychiatric Psychiatric exam: Present: normal affect, agitated Results - Labs CBC & BMP: 03/20/17 03:53 03/19/17 04:56 Lab Results: I have reviewed the past 24 hour labs
[2017-03-20] MEDS: OLANZapine 5 MG TABLET PO SCH (08:05)
[2017-03-20] MEDS: DOCUSATE SODIUM 100 MG CAPSULE PO PRN (08:06)
[2017-03-20] MEDS: FOLIC ACID 1 MG TABLET PO SCH ×2 (08:06→20:31)
[2017-03-20] MEDS: PANTOPRAZOLE 40 MG TABLET PO SCH (08:06)
[2017-03-20] MEDS: ENOXAPARIN 40 MG/0.4 ML SYRINGE SUBCUT SCH (08:08)
[2017-03-20] MEDS: SODIUM CHLORIDE 0.9% 1,000 ML IV SCH (08:09)
--- NOTE | 2017-03-20 10:04 | Hospitalist Progress Note ---
Assessment and Plan (1) Sickle cell crisis Status: Chronic Assessment and plan: Continue IV antibiotics. Transfuse as needed. Hematology oncology following. Reduce IV fluid rate. Encourage ambulation and deep breathing. Incentive spirometer at bedside. Current Visit: Yes Hospitalist: Subjective Interval history: Patient seen and examined. No acute events overnight. Case discussed with nursing staff. Labs reviewed. Patient looks and feels better this morning. Transfusion of 2 units of packed red blood cells as planned. If he continues to improve at this rate he should be able to go home over the weekend. Hematology notes reviewed and appreciated. Exam - Constitutional Vitals: Period Temp Pulse Resp BP Sys/Rowley Pulse Ox Last 24 Hr 98 F-99.5 F 81-87 18-24 137-171/81-99 92-96 Exam: Constitutional System: No distress. No tremulousness. Head: Normocephalic, atraumatic. Ears, Nose and Throat System: No pain or tenderness. No epistaxis or discharge Eyes System: Pupils equal, round, and reactive. Extraocular muscles intact. Neck: Supple, without adenopathy, No jugular venous distention. No thyromegaly, neck mass, or prior surgery apparent. Respiratory System: Chest clear to auscultation. Improved air entry Cardiovascular System: Heart with regular rate and rhythm. No murmur. GI System: Abdomen soft, nontender. Normo active bowel sounds present. Musculoskeletal System: limbs with no pedal edema. Full distal pulses. Normal capillary refill. Neurological System: No discernable sensory deficit. No aphasia Psychiatric System: Conversation is rational Results - Labs CBC & BMP: 03/20/17 03:53 03/19/17 04:56 Lab Results: I have reviewed the past 24 hour labs
[2017-03-20] MEDS: diphenhydrAMINE 50 MG/1 ML VIAL IV PRN ×2 (13:36→22:27)
--- NOTE | 2017-03-20 16:25 | XRay Report ---
XR chest 1V portable Indication: Acute chest syndrome. Comparison: Chest x-ray 03/16/2017. Technique: Portable AP chest was performed. Findings: Moderate cardiomegaly is stable. Central vascular prominence has minimally increased since comparison study. Bilaterally within the lungs there is been interval increase in airspace opacification most noticeable within the cardiophrenic angles. Small bilateral pleural effusions are present. Impression: 1. Minimal interval increase in prominence of basilar structures compatible with worsening pulmonary venous congestive changes. 2. Worsening airspace disease in the lung bases may impart reflect atelectasis. Pulmonary edema is not excluded. No specific evidence of infarction is present. 2. Bilateral pleural effusions are present. These are small in size. 03/20/2017 4:22 PM PROCEDURE INTERPRETED AT [facility] DEPARTMENT OF RADIOLOGY Final Report Signed by: Dr. Gil Molina
[2017-03-21] MEDS: HYDROmorphone 2 MG/1 ML VIAL IV SCH ×5 (00:05→09:32)
[2017-03-21] MEDS: cefTRIAXone 1,000 MG in SODIUM CHLORIDE 0.9% 100 ML IV SCH ×2 (03:02→16:29)
[2017-03-21 05:46] LABS: Basophils # 0.1 10*3/uL (0.0-0.2); Basophils % 0.4 % (0.0-0.8); Eosinophils # 1.8 10*3/uL (0.0-0.87); Eosinophils % 8.9 % (0.00-10.9); Hematocrit 25.7 VOL% (42.0-52.0); Immature Granulocytes % 0.6 %; Immature Granulocytes Absolute 0.11 #; Lymphocytes % 15.2 % (21.2-54.2); Mean Corpuscular Hemoglobin 31 PG (27-34); Mean Corpuscular Volume 83.4 FL (87-102); Mean Platelet Volume 10.8 FL (9.6-12.0); Monocytes # 2.8 10*3/uL (0.11-0.8); Monocytes % 14.1 % (1.7-12.7); NRBC # 0.14 10*3/uL; Neutrophils % 60.8 % (38.7-73.9); Platelet Count 269 T/CUMM (130-400); Red Cell Distribution Width 18.6 % (9.3-17.3); White Blood Count 19.7 T/CUMM (4-12)
[2017-03-21 06:02] LABS: Hemoglobin 9.5 GM/DL (14.0-18.0); Red Blood Count 3.08 MC/CUMM (3.8-5.5)
[2017-03-21 06:12] LABS: Burr Cells Few; Elliptocytes Few; Eosinophils 11 % (0-10); Lymphocytes 13 % (20-55); Macrocytosis Slight; Nucleated Red Blood Cells 1 (0-5); Platelet Estimate Adequate; Polychromasia Slight; Segmented Neutrophils 68 % (50-85); Sickle Cells 1+; Total Cells Counted 100
[2017-03-21] MEDS ORDERED: HYDROmorphone 2 MG/1 ML VIAL SUBCUT PRN (09:28)
[2017-03-21] MEDS: FOLIC ACID 1 MG TABLET PO SCH ×2 (09:32→21:24)
[2017-03-21] MEDS: PANTOPRAZOLE 40 MG TABLET PO SCH (09:32)
[2017-03-21] MEDS: OLANZapine 5 MG TABLET PO SCH (09:32)
--- NOTE | 2017-03-21 09:33 | Hospitalist Progress Note ---
Assessment and Plan (1) Sickle cell crisis Status: Chronic Assessment and plan: Continue IV antibiotics. Transfuse as needed. Hematology oncology following. Reduce IV fluid rate. Encourage ambulation and deep breathing. Incentive spirometer at bedside. LDH and reticulocyte count have improved. Hemoglobin is stable. Likely home in a.m.. I will begin to decrease IV pain medications. See hematology note from . Current Visit: Yes Hospitalist: Subjective Interval history: Patient seen and examined. No acute events overnight. Case discussed with nursing staff. Labs reviewed. The patient looks and feels better this morning. His hemoglobin and hematocrit have improved significantly. His reticulocyte count and LDH are decreasing. He should be ready for discharge home tomorrow. Exam - Constitutional Vitals: Period Temp Pulse Resp BP Sys/Rowley Pulse Ox Last 24 Hr 97.5 F-99.0 F 64-98 18-22 106-192/65-99 91-98 Exam: Constitutional System: No distress. No tremulousness. Head: Normocephalic, atraumatic. Ears, Nose and Throat System: No pain or tenderness. No epistaxis or discharge Eyes System: Pupils equal, round, and reactive. Extraocular muscles intact. Neck: Supple, without adenopathy, No jugular venous distention. No thyromegaly, neck mass, or prior surgery apparent. Respiratory System: Chest clear to auscultation. Improved air entry Cardiovascular System: Heart with regular rate and rhythm. No murmur. GI System: Abdomen soft, nontender. Normo active bowel sounds present. Musculoskeletal System: limbs with no pedal edema. Full distal pulses. Normal capillary refill. Neurological System: No discernable sensory deficit. No aphasia Psychiatric System: Conversation is rational Results - Labs CBC & BMP: 03/21/17 04:30 03/19/17 04:56 Lab Results: I have reviewed the past 24 hour labs
[2017-03-21] MEDS: ENOXAPARIN 40 MG/0.4 ML SYRINGE SUBCUT SCH (09:35)
[2017-03-21] MEDS: HYDROmorphone 2 MG/1 ML VIAL IV PRN ×2 (13:57→19:24)
[2017-03-21] MEDS: diphenhydrAMINE 50 MG/1 ML VIAL IV PRN (14:00)
[2017-03-22] MEDS: HYDROmorphone 2 MG/1 ML VIAL IV PRN ×4 (00:18→08:44)
[2017-03-22] MEDS: cefTRIAXone 1,000 MG in SODIUM CHLORIDE 0.9% 100 ML IV SCH (03:06)
[2017-03-22] MEDS: SODIUM CHLORIDE 0.9% 1,000 ML IV SCH ×2 (06:18→10:59)
[2017-03-22 06:29] LABS: Basophils # 0.1 10*3/uL (0.0-0.2); Basophils % 0.5 % (0.0-0.8); Eosinophils # 1.7 10*3/uL (0.0-0.87); Eosinophils % 8.8 % (0.00-10.9); Hematocrit 26.9 VOL% (42.0-52.0); Hemoglobin 9.8 GM/DL (14.0-18.0); Immature Granulocytes % 0.5 %; Lymphocytes # 3.5 10*3/uL (1.4-4.0); Lymphocytes % 18.7 % (21.2-54.2); Mean Corpuscular HGB Conc 36.4 GM/DL (32-36); Mean Corpuscular Hemoglobin 31 PG (27-34); Mean Corpuscular Volume 84.3 FL (87-102); Mean Platelet Volume 11.9 FL (9.6-12.0); Monocytes # 2.3 10*3/uL (0.11-0.8); Monocytes % 12.4 % (1.7-12.7); NRBC # 0.12 10*3/uL; Neutrophils # 11.1 10*3/uL (1.4-7.4); Neutrophils % 59.1 % (38.7-73.9); Platelet Count 164 T/CUMM (130-400); Red Blood Count 3.19 MC/CUMM (3.8-5.5); Red Cell Distribution Width 18.6 % (9.3-17.3); White Blood Count 18.7 T/CUMM (4-12)
[2017-03-22] MEDS: PANTOPRAZOLE 40 MG TABLET PO SCH (08:43)
[2017-03-22] MEDS: FOLIC ACID 1 MG TABLET PO SCH (08:43)
[2017-03-22] MEDS: OLANZapine 5 MG TABLET PO SCH (08:43)
[2017-03-22] MEDS: ENOXAPARIN 40 MG/0.4 ML SYRINGE SUBCUT SCH (08:44)
--- NOTE | 2017-03-22 10:14 | Discharge Summary ---
Hospital Course - Hospital Course Hospital Course: Mr. Whipple has less pain today. He would like to go home. The patient is having no fever chills nausea or vomiting. The patient states that he has oral narcotic medication available at home. The chest is clear and abdomen soft. Heart has regular rate and rhythm. Patient medications were reconciled upon admission, and again at the time of discharge. The patient was screened for tobacco use and found to be a [occasional smoker]. The patient was given 4 minutes of tobacco avoidance education. The patient's medical decsion maker is [themself], and when asked, they asked to be [Full code]. Discharge Time was 31 minutes, including final examination, evaluation and planning, education, reconciliation of medications, writing prescriptions, coordinating care with counter caser, and preparing discharge documentation. - Time spent with patient Time with patient DS: Greater than 30 minutes Diagnosis - Discharge Diagnosis (1) Sickle cell crisis Status: Resolved (2) Acute chest syndrome Status: Resolved Discharge Plan - Discharge Data Disposition: Disch To Home/Self Care Condition at Discharge: Stable Discharge Diet: advance to your usual diet Activity: resume usual activities as tolerated - Discharge Medications Continue traMADol TAB [Ultram] 50 mg PO Q6H PRN PRN Reason: Pain Duloxetine HCl [Duloxetine] 60 mg PO DAILY Oxycodone HCl/Acetaminophen [Percocet 10-325 mg Tablet] 1 each PO Q6HR OLANZapine [Olanzapine] 10 mg PO DAILY Morphine Sulfate [Morphine Sulfate ER] 30 mg PO BID PRN PRN Reason: Pain Folic Acid 0.8 mg PO DAILY ARIPiprazole [Aripiprazole] 5 mg PO DAILY Hydrocodone/Acetaminophen [Brumley 10-325 Tablet] 1 each PO Q4-6H PRN PRN Reason: Pain Citalopram [CeleXA] 20 mg PO DAILY traZODone [Desyrel] 150 mg PO BEDTIME Deferasirox [Jadenu] 360 mg PO DAILY - Follow Up or Referral Follow Up: Your,PCP [Other] - Forms/Instructions Exam - Constitutional Vitals: Period Temp Pulse Resp BP Sys/Rowley Pulse Ox Last 24 Hr 98.0 F-99.0 F 63-75 16-24 156-174/76-94 90-98 Discharge Results Labs on day of discharge: Labs from last 24 hours 03/22/17 02:38 WBC 18.7 H RBC 3.19 L Hgb 9.8 L Hct 26.9 L MCV 84.3 L MCH 31 MCHC 36.4 H RDW 18.6 H Plt Count 164 D MPV 11.9 Neut % (Auto) 59.1 Lymph % (Auto) 18.7 L [place] % (Auto) 12.4 Eos % (Auto) 8.8 Baso % (Auto) 0.5 Neut # (Auto) 11.1 H Lymph # (Auto) 3.5 [place] # (Auto) 2.3 H Eos # (Auto) 1.7 H Baso # (Auto) 0.1 Immature Gran % 0.5 Nucleated RBC % 0.6 Immature Gran # 0.10 Nucleated RBCs # 0.12 Immature Plt Fraction 0.0 DS: Provider Date of admission: 03/15/17 01:51 Primary care physician: . No PCP Attending physician on admission: Rebeka Desouza MD Consults: 03/16/17 17:04 Consult to Physician [CONS] Routine Comment: Consult for Sickle Cell Crisis with Chest Syndrome Consulting Provider: Tung Alicea When should Consulting Provider be notified: In am When should Consulting Provider be notified: In am Discharging clinician: Christoph Bello MD
[2017-03-22 11:48] VITALS: BP 154/82
== END 2017-03-22 13:04 | disposition home or self-care (01) | DRG 812 ==
LOC: EDUNIT# → EDBD → N.ED 23:19 → N.EDINP 03-15 01:51 → SUATTDRO 03-15 01:51 → N.4E 03-15 02:22
PROVIDERS: ADMIT Internal Medicine; ATTEND Internal Medicine

== ENCOUNTER 2019-06-20 01:33 | Inpatient (IN) ==
[2019-06-20] MEDS ORDERED: SODIUM CHLORIDE 0.9% 1,000 ML IV STA (01:57)
[2019-06-20] MEDS ORDERED: ONDANSETRON 4 MG/2 ML VIAL IV ONE (02:06)
[2019-06-20] MEDS ORDERED: fentaNYL 100 MCG/2 ML VIAL IV STA (02:06)
[2019-06-20 02:45] LABS: Basophils # 0.1 10*3/uL (0.0-0.2); Basophils % 0.4 % (0.0-0.8); Eosinophils # 1.1 10*3/uL (0.0-0.87); Eosinophils % 5.7 % (0.00-10.9); Hematocrit 18.8 VOL% (42.0-52.0); Hemoglobin 6.8 GM/DL (14.0-18.0); Immature Granulocytes % 2.5 %; Immature Granulocytes Absolute 0.48 #; Lymphocytes # 3.9 10*3/uL (1.4-4.0); Lymphocytes % 20.8 % (21.2-54.2); Mean Corpuscular HGB Conc 36.2 GM/DL (32-36); Mean Corpuscular Volume 95.9 FL (87-102); Mean Platelet Volume 12.1 FL (9.6-12.0); Monocytes % 8.5 % (1.7-12.7); NRBC # 0.24 10*3/uL; Neutrophils % 62.1 % (38.7-73.9); Platelet Count 151 T/CUMM (130-400); Red Blood Count 1.96 MC/CUMM (3.8-5.5); Red Cell Distribution Width 23.9 % (9.3-17.3); White Blood Count 18.9 T/CUMM (4-12)
[2019-06-20 03:02] LABS: Albumin 3.5 G/DL (3.4-5.0); Bilirubin,Total 3.7 MG/DL (0.2-1.0); Calcium 8.3 MG/DL (8.5-10.1); Osmolality,Calculated 281.3 MOS/KG (273-304); Total Protein 6.2 G/DL (6.4-8.3)
[2019-06-20 03:04] LABS: Apearance,Urine CLEAR (Clear); Bacteria,Urine Occasional /HPF (Few); Bilirubin,Urine Negative (Negative); Blood, Urine Moderate mg/dL (Negative); Glucose,Urine (UA) Negative (Negative); Granular Casts,Urine 1 /LPF (0-1); Hyaline Casts,Urine 1 /LPF (0-3); Ketones,Urine Negative (Negative); Nitrite,Urine Negative (Negative); Protein,Urine 100 MG/DL; RBC,Urine 2 /HPF (0-4); Sperm,Urine Occasional /HPF (Negative); Urine Color Amber (Yellow); Urine Specific Gravity 1.011 (1.001-1.035); WBC,Urine <1 /HPF (0-6)
[2019-06-20] MEDS ORDERED: HYDROmorphone 2 MG/1 ML VIAL IV STA (03:24)
[2019-06-20] MEDS ORDERED: diphenhydrAMINE 50 MG/1 ML VIAL IV STA (03:24)
[2019-06-20] MEDS ORDERED: SODIUM CHLORIDE 0.9% 1,000 ML IV PRN (03:56)
[2019-06-20 04:00] LABS: Polychromasia 1+; Sickle Cells 1+
[2019-06-20 04:01] LABS: Hypochromasia Slight
[2019-06-20] MEDS ORDERED: ONDANSETRON 4 MG/2 ML VIAL IV PRN (04:04)
[2019-06-20] MEDS ORDERED: NICOTINE 21 MG/24 HR PATCH TRANSDERM PRN (04:04)
[2019-06-20] MEDS ORDERED: PROMETHAZINE 25 MG/1 ML VIAL IM PRN (04:04)
[2019-06-20] MEDS: HYDROmorphone 2 MG/1 ML VIAL IV PRN ×6 (05:54→23:06)
[2019-06-20] MEDS: SODIUM CHLORIDE 0.9% 1,000 ML IV SCH ×2 (11:53→18:37)
[2019-06-20 13:24] LABS: Hematocrit 24.2 VOL% (42.0-52.0)
[2019-06-20 13:25] LABS: Hemoglobin 8.5 GM/DL (14.0-18.0)
[2019-06-20] MEDS: diphenhydrAMINE CAP 25 MG CAPSULE PO PRN (18:36)
[2019-06-21] MEDS: SODIUM CHLORIDE 0.9% 1,000 ML IV SCH ×3 (02:51→22:19)
[2019-06-21 05:42] LABS: Basophils # 0.1 10*3/uL (0.0-0.2); Basophils % 0.4 % (0.0-0.8); Eosinophils # 0.8 10*3/uL (0.0-0.87); Eosinophils % 3.9 % (0.00-10.9); Hematocrit 22.3 VOL% (42.0-52.0); Immature Granulocytes % 1.1 %; Immature Granulocytes Absolute 0.24 #; Lymphocytes # 4.3 10*3/uL (1.4-4.0); Lymphocytes % 20.3 % (21.2-54.2); Mean Corpuscular HGB Conc 35.9 GM/DL (32-36); Mean Corpuscular Volume 91.4 FL (87-102); Mean Platelet Volume 11.8 FL (9.6-12.0); NRBC # 0.34 10*3/uL; Neutrophils % 65.3 % (38.7-73.9); Platelet Count 130 T/CUMM (130-400); Red Blood Count 2.44 MC/CUMM (3.8-5.5); Red Cell Distribution Width 21.6 % (9.3-17.3)
[2019-06-21 05:58] LABS: Calcium 8.2 MG/DL (8.5-10.1); Osmolality,Calculated 275.5 MOS/KG (273-304)
[2019-06-21 06:03] LABS: Eosinophils 3 % (0-10); Hypochromasia 1+; Lymphocytes 19 % (20-55); Myelocytes 1 %; Nucleated Red Blood Cells 5 (0-5); Segmented Neutrophils 65 % (50-85); Total Cells Counted 100
[2019-06-21 06:04] LABS: Anisocytosis 1+; Microcytosis 1+; Target Cells Slight
[2019-06-21 06:05] LABS: Ovalocytes Slight; Polychromasia Slight; Sickle Cells 1+
[2019-06-21] MEDS: HYDROmorphone 2 MG/1 ML VIAL IV PRN ×5 (06:05→23:30)
[2019-06-21 06:06] LABS: Pappenheimer Bodies Slight
[2019-06-21 06:07] LABS: Platelet Estimate Adequate
[2019-06-21] MEDS: oxyCODONE/ACETAMINOPHEN 5-325 MG TABLET PO PRN ×2 (09:48→19:03)
[2019-06-22] MEDS: oxyCODONE/ACETAMINOPHEN 5-325 MG TABLET PO PRN ×2 (01:44→09:13)
[2019-06-22] MEDS: HYDROmorphone 2 MG/1 ML VIAL IV PRN ×3 (02:28→11:27)
[2019-06-22] MEDS: SODIUM CHLORIDE 0.9% 1,000 ML IV SCH ×2 (02:29→05:06)
[2019-06-22] MEDS: diphenhydrAMINE CAP 25 MG CAPSULE PO PRN (05:47)
[2019-06-22 06:03] LABS: Basophils # 0.1 10*3/uL (0.0-0.2); Basophils % 0.4 % (0.0-0.8); Eosinophils % 4.7 % (0.00-10.9); Hematocrit 23.4 VOL% (42.0-52.0); Hemoglobin 8.3 GM/DL (14.0-18.0); Immature Granulocytes % 0.6 %; Immature Granulocytes Absolute 0.13 #; Lymphocytes # 6.2 10*3/uL (1.4-4.0); Lymphocytes % 30.3 % (21.2-54.2); Mean Corpuscular HGB Conc 35.5 GM/DL (32-36); Mean Corpuscular Volume 91.8 FL (87-102); Mean Platelet Volume 12.3 FL (9.6-12.0); Monocytes % 8.8 % (1.7-12.7); Neutrophils % 55.2 % (38.7-73.9); Platelet Count 132 T/CUMM (130-400); Red Blood Count 2.55 MC/CUMM (3.8-5.5); Red Cell Distribution Width 22.2 % (9.3-17.3); White Blood Count 20.4 T/CUMM (4-12)
[2019-06-22 06:23] LABS: Calcium 8.4 MG/DL (8.5-10.1); Osmolality,Calculated 274.5 MOS/KG (273-304)
[2019-06-22 06:33] LABS: Hypochromasia 1+; Platelet Estimate Adequate; Sickle Cells 1+; Target Cells Few
[2019-06-22 06:34] LABS: Macrocytosis Slight; Pappenheimer Bodies Few; Polychromasia Slight
[2019-06-22 11:38] VITALS: BP 150/70
== END 2019-06-22 12:56 | disposition home or self-care (01) | DRG 812 ==
LOC: N.ED 01:33 → N.EDINP 03:56 → SUATTDRO 03:56 → N.4E 04:27
PROVIDERS: ADMIT Internal Medicine Cardiovascular Disease; ATTEND Internal Medicine

== ENCOUNTER 2019-09-02 04:19 | Inpatient (IN) ==
[2019-09-02] MEDS ORDERED: HYDROmorphone 2 MG/1 ML VIAL IV STA ×2 (04:35→06:02)
[2019-09-02] MEDS ORDERED: SODIUM CHLORIDE 0.9% 1,000 ML IV STA (04:35)
[2019-09-02] MEDS ORDERED: ONDANSETRON 4 MG/2 ML VIAL IV STA (04:35)
[2019-09-02 05:34] LABS: Basophils # 0.1 10*3/uL (0.0-0.2); Basophils % 0.6 % (0.0-0.8); Eosinophils # 1.1 10*3/uL (0.0-0.87); Eosinophils % 6.3 % (0.00-10.9); Hematocrit 19.4 VOL% (42.0-52.0); Hemoglobin 6.9 GM/DL (14.0-18.0); Immature Granulocytes % 1.7 %; Immature Granulocytes Absolute 0.29 #; Lymphocytes % 34.9 % (21.2-54.2); Mean Corpuscular HGB Conc 35.6 GM/DL (32-36); Mean Corpuscular Volume 96.5 FL (87-102); Monocytes % 9.1 % (1.7-12.7); NRBC # 0.36 10*3/uL; Neutrophils % 47.4 % (38.7-73.9); Platelet Count 148 T/CUMM (130-400); Red Blood Count 2.01 MC/CUMM (3.8-5.5); Red Cell Distribution Width 25.7 % (9.3-17.3); White Blood Count 17.3 T/CUMM (4-12)
[2019-09-02 05:48] LABS: PT Patient Result 11.3 SECS (9.6-12.2)
[2019-09-02 05:56] LABS: Alanine Aminotransferase 69 U/L (16-61); Albumin 4.1 G/DL (3.4-5.0); Alkaline Phosphatase 140 U/L (45-117); Aspartate Amino Transferase 86 U/L (0-37); Blood Urea Nitrogen 16 MG/DL (7-18); Estimated Glom Filtration Rate 117 ML/MIN; Glucose 91 MG/DL (74-106); Osmolality,Calculated 277.5 MOS/KG (273-304); Total Protein 7.3 G/DL (6.4-8.3); Troponin I < 0.015 NG/ML (0.00-0.045)
[2019-09-02 06:31] LABS: Eosinophils 13 % (0-10); Lymphocytes 33 % (20-55); Myelocytes 1 %; Nucleated Red Blood Cells 3 (0-5); Segmented Neutrophils 45 % (50-85); Total Cells Counted 100
[2019-09-02 06:32] LABS: Hypochromasia 1+; Macrocytosis 1+; Polychromasia Few
[2019-09-02 06:33] LABS: Ovalocytes Few; Pappenheimer Bodies Few; Target Cells Few
[2019-09-02 06:34] LABS: Platelet Estimate Adequate; Sickle Cells 1+
[2019-09-02 07:56] LABS: Amorphous Crystals,Urine Occasional /HPF (Few); Apearance,Urine CLEAR (Clear); Bilirubin,Urine Negative (Negative); Blood, Urine Large mg/dL (Negative); Glucose,Urine (UA) Negative (Negative); Ketones,Urine Negative (Negative); Mucus,Urine Occasional /LPF (Occasional); Nitrite,Urine Negative (Negative); Protein,Urine 100 MG/DL; RBC,Urine 2 /HPF (0-4); Urine Color Yellow (Yellow); Urine Specific Gravity 1.009 (1.001-1.035); Urine Urobilinogen < 2.0 EU/DL (0.2-1.0); WBC,Urine <1 /HPF (0-6)
[2019-09-02 07:57] LABS: Barbiturates Screen,Urine Negative (Negative); Benzodiazepines Screen,Urine Negative (Negative); Cannabinoid Screen,Urine Positive (Negative); Opiate Screen,Urine Positive (Negative); Phencyclidine Screen,Urine Negative (Negative)
[2019-09-02] MEDS ORDERED: LACTULOSE 20 GM/30 ML UDCUP PO PRN (08:03)
[2019-09-02] MEDS ORDERED: ONDANSETRON 4 MG/2 ML VIAL IV PRN (08:03)
[2019-09-02] MEDS ORDERED: SODIUM CHLORIDE 0.9% 1,000 ML IV PRN ×2 (08:07→08:29)
[2019-09-02] MEDS ORDERED: NALOXONE 0.4 MG/ML VIAL IV PRN (08:07)
[2019-09-02] MEDS ORDERED: HYDROmorphone PCA 30 MG/30 ML SYRINGE IV SCH (08:30)
[2019-09-02 08:32] LABS: Risk Ratio 2.91; Thyroid Stimulating Hormone 1.73 uIU/ml (0.358-3.74)
[2019-09-02] MEDS: SODIUM CHLORIDE 0.9% 1,000 ML IV SCH ×2 (09:36→17:41)
[2019-09-02] MEDS: ENOXAPARIN 40 MG/0.4 ML SYRINGE SUBCUT SCH (09:36)
[2019-09-02] MEDS: PANTOPRAZOLE 40 MG TABLET PO SCH (09:36)
[2019-09-02] MEDS: diphenhydrAMINE CAP 25 MG CAPSULE PO PRN ×2 (11:36→16:41)
[2019-09-02 16:29] LABS: Bilirubin,Direct 0.76 MG/DL (0.0-0.20); Bilirubin,Indirect 3.4 MG/DL (0.0-1.0); Bilirubin,Total 4.2 MG/DL (0.2-1.0)
[2019-09-02] MEDS: FOLIC ACID 0.4 MG TABLET PO SCH (16:40)
[2019-09-02] MEDS: cefTRIAXone 1,000 MG in SYRINGE 1 EACH IV SCH (16:41)
[2019-09-02] MEDS: HYDROXYUREA 500 MG CAPSULE PO SCH (16:41)
[2019-09-02 17:19] LABS: Hepatitis B Core IgM Quant 0.07 Index; Hepatitis B Surface Ag Quant < 0.10 Index; Hepatitis B Surface Ag Result Negative (Negative); Hepatitis C Virus Ab Quant 0.06 Index; Hepatitis C Virus Ab Result Negative (Negative)
[2019-09-03] MEDS: SODIUM CHLORIDE 0.9% 1,000 ML IV SCH ×4 (04:45→22:30)
[2019-09-03 04:47] LABS: Basophils # 0.1 10*3/uL (0.0-0.2); Basophils % 0.4 % (0.0-0.8); Eosinophils # 0.9 10*3/uL (0.0-0.87); Eosinophils % 5.2 % (0.00-10.9); Immature Granulocytes % 0.7 %; Immature Granulocytes Absolute 0.12 #; Lymphocytes # 6.6 10*3/uL (1.4-4.0); Lymphocytes % 38.2 % (21.2-54.2); Mean Corpuscular HGB Conc 36.6 GM/DL (32-36); Mean Platelet Volume 11.6 FL (9.6-12.0); Monocytes % 9.6 % (1.7-12.7); NRBC # 0.28 10*3/uL; Neutrophils % 45.9 % (38.7-73.9); Platelet Count 131 T/CUMM (130-400); Red Blood Count 1.87 MC/CUMM (3.8-5.5); Red Cell Distribution Width 22.9 % (9.3-17.3); White Blood Count 17.4 T/CUMM (4-12)
[2019-09-03 04:55] LABS: Hemoglobin 6.3 GM/DL (14.0-18.0)
[2019-09-03 04:56] LABS: Hematocrit 17.2 VOL% (42.0-52.0)
[2019-09-03 05:09] LABS: Anisocytosis 1+; Hypochromasia 1+; Macrocytosis 1+
[2019-09-03 05:10] LABS: Ovalocytes Few; Pappenheimer Bodies Few; Polychromasia Few; Sickle Cells 1+; Target Cells Few
[2019-09-03] MEDS ORDERED: SODIUM CHLORIDE 0.9% 1,000 ML IV PRN ×2 (05:10→14:41)
[2019-09-03 05:11] LABS: Platelet Estimate Adequate
[2019-09-03 05:32] LABS: Albumin 3.3 G/DL (3.4-5.0); Bilirubin,Total 3.4 MG/DL (0.2-1.0); Calcium 7.9 MG/DL (8.5-10.1); Osmolality,Calculated 272.8 MOS/KG (273-304); Total Protein 5.8 G/DL (6.4-8.3)
[2019-09-03] MEDS: ENOXAPARIN 40 MG/0.4 ML SYRINGE SUBCUT SCH (09:41)
[2019-09-03] MEDS: FOLIC ACID 0.4 MG TABLET PO SCH (09:46)
[2019-09-03] MEDS: PANTOPRAZOLE 40 MG TABLET PO SCH (09:46)
[2019-09-03] MEDS: HYDROmorphone PCA 30 MG/30 ML SYRINGE IV SCH (09:46)
[2019-09-03] MEDS: HYDROXYUREA 500 MG CAPSULE PO SCH (09:46)
[2019-09-03] MEDS: cefTRIAXone 1,000 MG in SYRINGE 1 EACH IV SCH (17:12)
[2019-09-03 19:33] LABS: Apearance,Urine CLEAR (Clear); Bilirubin,Urine Negative (Negative); Blood, Urine Moderate mg/dL (Negative); Glucose,Urine (UA) Negative (Negative); Ketones,Urine Negative (Negative); Mucus,Urine Occasional /LPF (Occasional); Nitrite,Urine Negative (Negative); Protein,Urine 100 MG/DL; RBC,Urine 1 /HPF (0-4); Urine Color Yellow (Yellow); Urine Specific Gravity 1.008 (1.001-1.035); Urine Urobilinogen < 2.0 EU/DL (0.2-1.0); WBC,Urine <1 /HPF (0-6)
[2019-09-03] MEDS: diphenhydrAMINE CAP 25 MG CAPSULE PO PRN (19:58)
[2019-09-04] MEDS: SODIUM CHLORIDE 0.9% 1,000 ML IV SCH ×2 (01:50→11:15)
[2019-09-04 06:41] LABS: Basophils # 0.1 10*3/uL (0.0-0.2); Basophils % 0.5 % (0.0-0.8); Eosinophils # 0.9 10*3/uL (0.0-0.87); Eosinophils % 4.8 % (0.00-10.9); Hematocrit 22.2 VOL% (42.0-52.0); Hemoglobin 8.1 GM/DL (14.0-18.0); Immature Granulocytes % 0.5 %; Immature Granulocytes Absolute 0.09 #; Lymphocytes % 27.3 % (21.2-54.2); Mean Corpuscular HGB Conc 36.5 GM/DL (32-36); Mean Corpuscular Volume 87.1 FL (87-102); Mean Platelet Volume 11.8 FL (9.6-12.0); Monocytes % 8.6 % (1.7-12.7); Neutrophils % 58.3 % (38.7-73.9); Platelet Count 122 T/CUMM (130-400); Red Blood Count 2.55 MC/CUMM (3.8-5.5); Red Cell Distribution Width 20.7 % (9.3-17.3); White Blood Count 18.3 T/CUMM (4-12)
[2019-09-04 07:00] LABS: Albumin 3.1 G/DL (3.4-5.0); Bilirubin,Total 3.8 MG/DL (0.2-1.0); Calcium 8.1 MG/DL (8.5-10.1); Total Protein 5.8 G/DL (6.4-8.3)
[2019-09-04] MEDS: HYDROXYUREA 500 MG CAPSULE PO SCH (09:43)
[2019-09-04] MEDS: PANTOPRAZOLE 40 MG TABLET PO SCH (09:44)
[2019-09-04] MEDS: FOLIC ACID 0.4 MG TABLET PO SCH (09:44)
[2019-09-04] MEDS: ENOXAPARIN 40 MG/0.4 ML SYRINGE SUBCUT SCH (11:14)
[2019-09-04 12:06] VITALS: BP 127/58
[2019-09-04] MEDS: HYDROmorphone PCA 30 MG/30 ML SYRINGE IV SCH (12:14)
== END 2019-09-04 12:58 | disposition home or self-care (01) | DRG 812 ==
LOC: N.ED 04:19 → N.EDINP 07:57 → N.5E 08:24
PROVIDERS: ADMIT Family Medicine; ATTEND Family Medicine

== ENCOUNTER 2019-10-19 20:55 | Inpatient (IN) ==
[2019-10-19] MEDS ORDERED: SODIUM CHLORIDE 0.9% 1,000 ML IV STA (21:30)
[2019-10-19 22:22] LABS: Basophils # 0.2 10*3/uL (0.0-0.2); Basophils % 0.8 % (0.0-0.8); Eosinophils # 1.4 10*3/uL (0.0-0.87); Eosinophils % 6.9 % (0.00-10.9); Hematocrit 21.9 VOL% (42.0-52.0); Hemoglobin 7.2 GM/DL (14.0-18.0); Immature Granulocytes % 0.8 %; Immature Granulocytes Absolute 0.16 #; Lymphocytes # 8.4 10*3/uL (1.4-4.0); Lymphocytes % 39.9 % (21.2-54.2); Mean Corpuscular HGB Conc 32.9 GM/DL (32-36); Mean Corpuscular Volume 94.4 FL (87-102); Mean Platelet Volume 11.1 FL (9.6-12.0); Monocytes % 10.3 % (1.7-12.7); NRBC # 0.22 10*3/uL; Neutrophils % 41.3 % (38.7-73.9); Platelet Count 248 T/CUMM (130-400); Red Blood Count 2.32 MC/CUMM (3.8-5.5); Red Cell Distribution Width 21.3 % (9.3-17.3); White Blood Count 20.9 T/CUMM (4-12)
[2019-10-19 22:24] LABS: Apearance,Urine CLEAR (Clear); Bilirubin,Urine Negative (Negative); Blood, Urine Moderate mg/dL (Negative); Glucose,Urine (UA) Negative (Negative); Ketones,Urine Negative (Negative); Mucus,Urine Occasional /LPF (Occasional); Nitrite,Urine Negative (Negative); Protein,Urine 30 MG/DL; RBC,Urine 1 /HPF (0-4); Urine Color Yellow (Yellow); Urine Specific Gravity 1.009 (1.001-1.035); Urine Urobilinogen < 2.0 EU/DL (0.2-1.0); WBC,Urine 1 /HPF (0-6)
[2019-10-19 22:31] LABS: INR 1.1; PT Patient Result 11.9 SECS (9.8-11.9)
[2019-10-19] MEDS ORDERED: HYDROmorphone 2 MG/1 ML VIAL IV ONE (22:59)
[2019-10-19] MEDS ORDERED: ONDANSETRON 4 MG/2 ML VIAL IV STA (22:59)
[2019-10-19 23:00] LABS: Alanine Aminotransferase 83 U/L (16-61); Albumin 4.1 G/DL (3.4-5.0); Alkaline Phosphatase 140 U/L (45-117); Amylase 109 U/L (25-115); Aspartate Amino Transferase 93 U/L (0-37); Blood Urea Nitrogen 25 MG/DL (7-18); Calcium 8.5 MG/DL (8.5-10.1); Ferritin 6996.6 ng/ml (26-388); Glucose 79 MG/DL (74-106); Osmolality,Calculated 272.1 MOS/KG (273-304); Total Protein 7.1 G/DL (6.4-8.3)
[2019-10-19 23:01] LABS: Estimated Glom Filtration Rate 0 ML/MIN
[2019-10-19] MEDS ORDERED: ONDANSETRON 4 MG/2 ML VIAL IV PRN (23:17)
[2019-10-19] MEDS ORDERED: guaiFENesin/DM ER 600-30 MG TABLET PO PRN (23:17)
[2019-10-19] MEDS ORDERED: ACETAMINOPHEN 325 MG TABLET PO PRN (23:17)
[2019-10-19] MEDS ORDERED: GLUCAGON 1 MG VIAL IM PRN (23:17)
[2019-10-19] MEDS ORDERED: ALUMINUM/MAGNES/SIMETH MAX STR 30 ML UDCUP PO PRN (23:17)
[2019-10-19] MEDS ORDERED: hydrALAZINE 20 MG/1 ML VIAL IV PRN (23:17)
[2019-10-19] MEDS ORDERED: DEXTROSE 50% 25 GM/50 ML VIAL IV PRN (23:17)
[2019-10-19] MEDS ORDERED: NICOTINE 21 MG/24 HR PATCH TRANSDERM PRN (23:17)
[2019-10-19] MEDS ORDERED: PROMETHAZINE 25 MG/1 ML VIAL IM PRN (23:17)
[2019-10-19] MEDS ORDERED: diphenhydrAMINE CAP 25 MG CAPSULE PO PRN (23:17)
[2019-10-19] MEDS ORDERED: MEPERIDINE 25 MG/1 ML VIAL IV PRN (23:20)
[2019-10-19] MEDS ORDERED: SODIUM CHLORIDE 0.9% 1,000 ML IV PRN (23:20)
[2019-10-19 23:39] LABS: Eosinophils 11 % (0-10); Lymphocytes 40 % (20-55); Nucleated Red Blood Cells 1 (0-5); Segmented Neutrophils 41 % (50-85); Total Cells Counted 100
[2019-10-19 23:40] LABS: Anisocytosis 2+; Hypochromasia 1+; Macrocytosis 1+; Microcytosis 1+; Ovalocytes 1+; Poikilocytosis 1+; Smudge Cells Few
[2019-10-19 23:41] LABS: Polychromasia 1+; Sickle Cells 1+; Target Cells 1+
[2019-10-19 23:42] LABS: Platelet Estimate Adequate
[2019-10-20] MEDS ORDERED: INFLUENZA VIRUS VACCINE 0.5 ML SYRINGE IM ONE (02:01)
[2019-10-20] MEDS ORDERED: HYDROmorphone 2 MG/1 ML VIAL IV PRN (03:28)
[2019-10-20] MEDS: SODIUM CHLORIDE 0.9% 1,000 ML IV SCH ×3 (04:01→21:31)
[2019-10-20 06:05] LABS: Basophils # 0.2 10*3/uL (0.0-0.2); Basophils % 0.8 % (0.0-0.8); Eosinophils # 1.3 10*3/uL (0.0-0.87); Eosinophils % 6.8 % (0.00-10.9); Hematocrit 23.2 VOL% (42.0-52.0); Hemoglobin 7.7 GM/DL (14.0-18.0); Immature Granulocytes % 0.7 %; Immature Granulocytes Absolute 0.13 #; Lymphocytes % 35.9 % (21.2-54.2); Mean Corpuscular HGB Conc 33.2 GM/DL (32-36); Mean Corpuscular Volume 93.2 FL (87-102); Mean Platelet Volume 11.7 FL (9.6-12.0); NRBC # 0.19 10*3/uL; Neutrophils % 44.8 % (38.7-73.9); Platelet Count 230 T/CUMM (130-400); Red Blood Count 2.49 MC/CUMM (3.8-5.5); Red Cell Distribution Width 19.8 % (9.3-17.3); White Blood Count 19.5 T/CUMM (4-12)
[2019-10-20] MEDS: HYDROmorphone 2 MG/1 ML VIAL IV PRN ×3 (08:45→21:24)
[2019-10-20] MEDS ORDERED: AZITHROMYCIN 250 MG TABLET PO ONE (09:00)
[2019-10-20] MEDS ORDERED: NICOTINE 4 MG BUCCAL PRN (10:17)
[2019-10-20] MEDS ORDERED: ACETAMINOPHEN 325 MG TABLET PO PRN (10:17)
[2019-10-20] MEDS: oxyCODONE/ACETAMINOPHEN 5-325 MG TABLET PO PRN (16:50)
[2019-10-20] MEDS: FOLIC ACID 1 MG TABLET PO SCH (17:00)
[2019-10-20] MEDS: VENLAFAXINE XR 75 MG CAPSULE PO SCH (17:00)
[2019-10-21] MEDS: oxyCODONE/ACETAMINOPHEN 5-325 MG TABLET PO PRN ×5 (00:10→20:27)
[2019-10-21] MEDS: SODIUM CHLORIDE 0.9% 1,000 ML IV SCH ×3 (01:30→14:47)
[2019-10-21] MEDS: HYDROmorphone 2 MG/1 ML VIAL IV PRN (03:10)
[2019-10-21 04:11] LABS: Basophils # 0.2 10*3/uL (0.0-0.2); Basophils % 0.9 % (0.0-0.8); Eosinophils # 1.6 10*3/uL (0.0-0.87); Eosinophils % 7.6 % (0.00-10.9); Hematocrit 25.9 VOL% (42.0-52.0); Hemoglobin 8.5 GM/DL (14.0-18.0); Immature Granulocytes % 0.6 %; Immature Granulocytes Absolute 0.12 #; Lymphocytes # 7.5 10*3/uL (1.4-4.0); Lymphocytes % 36.7 % (21.2-54.2); Mean Corpuscular HGB Conc 32.8 GM/DL (32-36); Mean Corpuscular Volume 93.8 FL (87-102); Mean Platelet Volume 11.4 FL (9.6-12.0); Neutrophils % 43.2 % (38.7-73.9); Platelet Count 235 T/CUMM (130-400); Red Blood Count 2.76 MC/CUMM (3.8-5.5); Red Cell Distribution Width 20.3 % (9.3-17.3); White Blood Count 20.4 T/CUMM (4-12)
[2019-10-21 04:32] LABS: Eosinophils 12 % (0-10); Lymphocytes 44 % (20-55); Platelet Estimate Adequate; Segmented Neutrophils 38 % (50-85); Total Cells Counted 100
[2019-10-21 04:33] LABS: Howell-Jolly Bodies Few; Hypochromasia 1+; Sickle Cells Few
[2019-10-21 04:34] LABS: Macrocytosis Slight; Pappenheimer Bodies Slight; Polychromasia Slight
[2019-10-21 04:48] LABS: Calcium 8.7 MG/DL (8.5-10.1); Osmolality,Calculated 273.8 MOS/KG (273-304)
[2019-10-21] MEDS: AZITHROMYCIN 250 MG TABLET PO SCH (09:06)
[2019-10-21] MEDS: VENLAFAXINE XR 75 MG CAPSULE PO SCH (09:06)
[2019-10-21] MEDS: FOLIC ACID 1 MG TABLET PO SCH (09:06)
[2019-10-21] MEDS: PANTOPRAZOLE 20 MG TABLET PO SCH (09:06)
[2019-10-21] MEDS: risperiDONE 1 MG TABLET PO SCH (14:00)
[2019-10-22] MEDS ORDERED: SODIUM CHLORIDE 0.9% 1,000 ML IV ONE (12:08)
[2019-10-22] MEDS ORDERED: HYDROmorphone 2 MG/1 ML VIAL IV PRN (12:26)
[2019-10-22] MEDS: PANTOPRAZOLE 20 MG TABLET PO SCH (12:28)
[2019-10-22] MEDS: risperiDONE 1 MG TABLET PO SCH (12:28)
[2019-10-22] MEDS: VENLAFAXINE XR 75 MG CAPSULE PO SCH (12:28)
[2019-10-22] MEDS: AZITHROMYCIN 250 MG TABLET PO SCH (12:28)
[2019-10-22] MEDS: FOLIC ACID 1 MG TABLET PO SCH (12:29)
[2019-10-22 18:11] VITALS: BP 147/74
== END 2019-10-22 16:30 | disposition home or self-care (01) | DRG 812 ==
LOC: EDBD → EDUNIT# → N.ED 20:55 → SUATTDRO 23:17 → N.EDINP 23:17 → N.2W 23:55
PROVIDERS: ADMIT Internal Medicine; ATTEND Family Medicine

== ENCOUNTER 2020-01-04 23:36 | Observation (INO) ==
[2020-01-05] MEDS ORDERED: SODIUM CHLORIDE 0.9% 1,000 ML IV STA (00:22)
[2020-01-05 01:11] LABS: Basophils # 0.2 10*3/uL (0.0-0.2); Basophils % 0.8 % (0.0-0.8); Eosinophils # 1.5 10*3/uL (0.0-0.87); Eosinophils % 7.6 % (0.00-10.9); Hematocrit 23.3 VOL% (42.0-52.0); Hemoglobin 7.8 GM/DL (14.0-18.0); Immature Granulocytes % 0.6 %; Immature Granulocytes Absolute 0.12 #; Lymphocytes % 45.4 % (21.2-54.2); Mean Corpuscular HGB Conc 33.5 GM/DL (32-36); Mean Corpuscular Volume 96.3 FL (87-102); Mean Platelet Volume 11.7 FL (9.6-12.0); Monocytes % 8.8 % (1.7-12.7); NRBC # 0.07 10*3/uL; Neutrophils % 36.8 % (38.7-73.9); Platelet Count 178 T/CUMM (130-400); Red Blood Count 2.42 MC/CUMM (3.8-5.5); Red Cell Distribution Width 20.7 % (9.3-17.3); White Blood Count 19.8 T/CUMM (4-12)
[2020-01-05 01:35] LABS: Alanine Aminotransferase 76 U/L (16-61); Albumin 3.7 G/DL (3.4-5.0); Alkaline Phosphatase 162 U/L (45-117); Aspartate Amino Transferase 81 U/L (0-37); Bilirubin,Total 2.71 MG/DL (0.2-1.0); Blood Urea Nitrogen 21 MG/DL (7-18); Calcium 8.4 MG/DL (8.5-10.1); Estimated Glom Filtration Rate 108 ML/MIN; Glucose 79 MG/DL (74-106); Osmolality,Calculated 274.8 MOS/KG (273-304)
[2020-01-05] MEDS ORDERED: fentaNYL 100 MCG/2 ML VIAL IV STA (01:35)
[2020-01-05 01:36] LABS: Troponin I < 0.015 NG/ML (0.00-0.045)
[2020-01-05] MEDS ORDERED: fentaNYL 100 MCG/2 ML VIAL ONE (01:36)
[2020-01-05 01:47] LABS: Ferritin 6770.6 ng/ml (26-388)
[2020-01-05] MEDS ORDERED: GLUCAGON 1 MG VIAL IM PRN (01:47)
[2020-01-05] MEDS ORDERED: DEXTROSE 50% 25 GM/50 ML VIAL IV PRN (01:47)
[2020-01-05] MEDS ORDERED: HYDROmorphone 2 MG/1 ML VIAL IV PRN (01:53)
[2020-01-05] MEDS: ONDANSETRON 4 MG/2 ML VIAL IV PRN ×2 (02:00→08:00)
[2020-01-05] MEDS ORDERED: SODIUM CHLORIDE 0.9% 1,000 ML IV SCH (02:00)
[2020-01-05] MEDS ORDERED: HYDROmorphone 2 MG/1 ML VIAL ONE (02:04)
[2020-01-05] MEDS ORDERED: SODIUM CHLORIDE 0.9% 1,000 ML IV PRN (02:10)
[2020-01-05] MEDS ORDERED: NALOXONE 0.4 MG/ML VIAL IV PRN (02:10)
[2020-01-05 02:13] LABS: INR 1.1; PT Patient Result 11.8 SECS (9.8-11.9)
[2020-01-05] MEDS ORDERED: HYDROmorphone PCA 30 MG/30 ML SYRINGE IV SCH (02:30)
[2020-01-05] MEDS: diphenhydrAMINE CAP 25 MG CAPSULE PO PRN ×2 (02:33→07:24)
[2020-01-05 03:09] LABS: Eosinophils 10 % (0-10); Lymphocytes 49 % (20-55); Segmented Neutrophils 34 % (50-85); Total Cells Counted 100
[2020-01-05 03:18] LABS: Atypical Lymphocytes Few; Reactive Lymphocytes 1+
[2020-01-05 03:19] LABS: Platelet Estimate Normal
[2020-01-05 03:20] LABS: Howell-Jolly Bodies 1+; Hypochromasia 2+; Sickle Cells Few; Target Cells Few
[2020-01-05 03:21] LABS: Ovalocytes 1+; Polychromasia Few
[2020-01-05 03:23] LABS: Schistocytes Few
[2020-01-05 03:24] LABS: Poikilocytosis Few
[2020-01-05] MEDS ORDERED: ENOXAPARIN 40 MG/0.4 ML SYRINGE SUBCUT SCH (06:32)
[2020-01-05 06:54] LABS: Basophils # 0.2 10*3/uL (0.0-0.2); Basophils % 0.7 % (0.0-0.8); Eosinophils # 1.4 10*3/uL (0.0-0.87); Eosinophils % 5.6 % (0.00-10.9); Hematocrit 24.2 VOL% (42.0-52.0); Hemoglobin 8.1 GM/DL (14.0-18.0); Immature Granulocytes % 0.6 %; Immature Granulocytes Absolute 0.16 #; Lymphocytes # 11.9 10*3/uL (1.4-4.0); Lymphocytes % 46.9 % (21.2-54.2); Mean Corpuscular HGB Conc 33.5 GM/DL (32-36); Mean Corpuscular Volume 96.8 FL (87-102); Mean Platelet Volume 11.6 FL (9.6-12.0); Monocytes % 8.8 % (1.7-12.7); Neutrophils % 37.4 % (38.7-73.9); Platelet Count 182 T/CUMM (130-400); Red Cell Distribution Width 20.6 % (9.3-17.3); White Blood Count 25.4 T/CUMM (4-12)
[2020-01-05 07:11] LABS: Eosinophils 3 % (0-10); Hypochromasia 2+; Lymphocytes 46 % (20-55); Microcytosis Slight; Ovalocytes Slight; Platelet Estimate Adequate; Segmented Neutrophils 38 % (50-85); Total Cells Counted 100
[2020-01-05 07:12] LABS: Howell-Jolly Bodies Slight; Pappenheimer Bodies Slight; Sickle Cells Few
[2020-01-05 07:24] LABS: Bilirubin,Total 4.8 MG/DL (0.2-1.0); Calcium 8.6 MG/DL (8.5-10.1); Osmolality,Calculated 278.7 MOS/KG (273-304); Total Protein 7.3 G/DL (6.4-8.3)
[2020-01-05 07:47] VITALS: BP 148/74
[2020-01-05] MEDS ORDERED: PANTOPRAZOLE 40 MG TABLET PO SCH (09:00)
[2020-01-06] MEDS ORDERED: HYDROmorphone PCA 30 MG/30 ML SYRINGE IV SCH (02:30)
== END 2020-01-05 09:20 | disposition left against medical advice (07) ==
LOC: N.ED 23:36 → N.EDINP 23:36 → N.3E 01-05 05:22
PROVIDERS: ADMIT Internal Medicine; ATTEND Internal Medicine

== ENCOUNTER 2020-02-18 14:19 | Inpatient (IN) ==
[2020-02-18] MEDS ORDERED: HYDROmorphone 2 MG/1 ML VIAL IV STA ×2 (21:40→23:03)
[2020-02-18] MEDS ORDERED: SODIUM CHLORIDE 0.9% 1,000 ML IV STA (21:40)
[2020-02-18] MEDS ORDERED: ONDANSETRON 4 MG/2 ML VIAL IV ONE (21:40)
[2020-02-18 22:08] LABS: Apearance,Urine CLEAR (Clear); Bilirubin,Urine Negative (Negative); Blood, Urine Moderate mg/dL (Negative); Glucose,Urine (UA) Negative (Negative); Ketones,Urine Negative (Negative); Mucus,Urine Occasional /LPF (Occasional); Nitrite,Urine Negative (Negative); Protein,Urine 100 MG/DL; RBC,Urine <1 /HPF (0-4); Urine Color Yellow (Yellow); Urine Specific Gravity 1.009 (1.001-1.035); WBC,Urine <1 /HPF (0-6)
[2020-02-18 22:26] LABS: Albumin 3.7 G/DL (3.4-5.0); Bilirubin,Total 5.9 MG/DL (0.2-1.0); Calcium 8.9 MG/DL (8.5-10.1); Osmolality,Calculated 278.7 MOS/KG (273-304); Total Protein 6.5 G/DL (6.4-8.3)
[2020-02-18 22:49] LABS: Basophils % 0.2 % (0.0-0.8); Immature Granulocytes % 3.1 %; Immature Granulocytes Absolute 0.81 #; Lymphocytes # 6.5 10*3/uL (1.4-4.0); Lymphocytes % 24.5 % (21.2-54.2); Mean Corpuscular HGB Conc 35.5 GM/DL (32-36); Monocytes % 14.6 % (1.7-12.7); Neutrophils % 57.6 % (38.7-73.9); Platelet Count 152 T/CUMM (130-400); Red Blood Count 1.89 MC/CUMM (3.8-5.5); Red Cell Distribution Width 19.9 % (9.3-17.3); White Blood Count 26.5 T/CUMM (4-12)
[2020-02-18 22:52] LABS: Hematocrit 17.2 VOL% (42.0-52.0); Hemoglobin 6.1 GM/DL (14.0-18.0)
[2020-02-18 23:22] LABS: Lymphocytes 18 % (20-55); Nucleated Red Blood Cells 3 (0-5); Segmented Neutrophils 76 % (50-85); Total Cells Counted 100
[2020-02-18 23:23] LABS: Anisocytosis 2+; Microcytosis 1+; Ovalocytes Slight; Platelet Estimate Normal; Polychromasia Few; Sickle Cells 1+; Target Cells 1+
[2020-02-19] MEDS ORDERED: NALOXONE 0.4 MG/ML VIAL IV PRN (00:04)
[2020-02-19] MEDS ORDERED: SODIUM CHLORIDE 0.9% 1,000 ML IV PRN (00:06)
[2020-02-19] MEDS ORDERED: ACETAMINOPHEN 325 MG TABLET PO PRN (00:07)
[2020-02-19] MEDS ORDERED: DOCUSATE SODIUM 100 MG CAPSULE PO PRN (00:07)
[2020-02-19] MEDS ORDERED: ONDANSETRON 4 MG/2 ML VIAL IV PRN (00:07)
[2020-02-19] MEDS ORDERED: HYDROmorphone 2 MG/1 ML VIAL IV STA (01:03)
[2020-02-19 02:27] LABS: Basophils % 0.1 % (0.0-0.8); Eosinophils # 0.1 10*3/uL (0.0-0.87); Eosinophils % 0.3 % (0.00-10.9); Immature Granulocytes % 2.9 %; Immature Granulocytes Absolute 0.84 #; Lymphocytes # 7.9 10*3/uL (1.4-4.0); Lymphocytes % 27.6 % (21.2-54.2); Mean Corpuscular Volume 89.9 FL (87-102); Mean Platelet Volume 11.9 FL (9.6-12.0); Monocytes % 14.3 % (1.7-12.7); NRBC # 1.15 10*3/uL; Neutrophils % 54.8 % (38.7-73.9); Platelet Count 148 T/CUMM (130-400); Red Blood Count 1.79 MC/CUMM (3.8-5.5); Red Cell Distribution Width 19.9 % (9.3-17.3); White Blood Count 28.6 T/CUMM (4-12)
[2020-02-19 02:31] LABS: Hematocrit 16.1 VOL% (42.0-52.0); Hemoglobin 5.8 GM/DL (14.0-18.0)
[2020-02-19 02:48] LABS: Osmolality,Calculated 280.4 MOS/KG (273-304)
[2020-02-19 06:05] LABS: Anisocytosis 3+; Band Neutrophils 2 % (0-10); Lymphocytes 23 % (20-55); Metamyelocytes 3 %; Myelocytes 2 %; Nucleated Red Blood Cells 7 (0-5); Platelet Estimate Adequate; Poikilocytosis 1+; Polychromasia 1+; Segmented Neutrophils 58 % (50-85); Sickle Cells 1+; Smudge Cells Few; Total Cells Counted 100
[2020-02-19] MEDS ORDERED: HYDROmorphone PCA 30 MG/30 ML SYRINGE IV SCH (06:30)
[2020-02-19] MEDS: SODIUM CHLORIDE 0.9% 1,000 ML IV SCH ×2 (06:58→20:47)
[2020-02-19] MEDS ORDERED: TRAZODONE 100 MG PO SCH (09:00)
[2020-02-19] MEDS ORDERED: VENLAFAXINE 75 MG PO SCH (09:00)
[2020-02-19] MEDS ORDERED: hydrALAZINE 20 MG/1 ML VIAL IV PRN (09:30)
[2020-02-19] MEDS ORDERED: HALOPERIDOL DECANOATE 100 MG IM SCH (09:30)
[2020-02-19] MEDS: PANTOPRAZOLE 40 MG TABLET PO SCH (10:20)
[2020-02-19] MEDS: BENZTROPINE 1 MG TABLET PO SCH (10:20)
[2020-02-19] MEDS: risperiDONE 1 MG TABLET PO SCH (10:20)
[2020-02-19] MEDS: busPIRone 10 MG TABLET PO SCH (10:20)
[2020-02-19 10:57] LABS: Basophils # 0.1 10*3/uL (0.0-0.2); Basophils % 0.3 % (0.0-0.8); Eosinophils # 0.3 10*3/uL (0.0-0.87); Hematocrit 23.8 VOL% (42.0-52.0); Hemoglobin 8.2 GM/DL (14.0-18.0); Immature Granulocytes % 1.6 %; Immature Granulocytes Absolute 0.47 #; Lymphocytes # 9.5 10*3/uL (1.4-4.0); Lymphocytes % 33.2 % (21.2-54.2); Mean Corpuscular HGB Conc 34.5 GM/DL (32-36); Mean Corpuscular Volume 89.8 FL (87-102); Mean Platelet Volume 11.8 FL (9.6-12.0); Monocytes % 10.2 % (1.7-12.7); NRBC # 1.21 10*3/uL; Neutrophils % 53.7 % (38.7-73.9); Platelet Count 140 T/CUMM (130-400); Red Blood Count 2.65 MC/CUMM (3.8-5.5); Red Cell Distribution Width 18.1 % (9.3-17.3); White Blood Count 28.6 T/CUMM (4-12)
[2020-02-19 11:31] LABS: Anisocytosis 3+; Lymphocytes 38 % (20-55); Myelocytes 3 %; Nucleated Red Blood Cells 6 (0-5); Platelet Estimate Adequate; Poikilocytosis 1+; Polychromasia 1+; Segmented Neutrophils 50 % (50-85); Sickle Cells 1+; Total Cells Counted 100
[2020-02-19 11:32] LABS: Giant Platelets Few
[2020-02-19] MEDS: NON-FORMULARY MEDICATION (Deferasirox [Jadenu] 360 MG) PO SCH (14:21)
[2020-02-19] MEDS: HydrOXYzine PAMOATE 50 MG CAPSULE PO PRN (22:08)
[2020-02-19] MEDS: KETOROLAC 15 MG/1 ML VIAL IV PRN (23:47)
[2020-02-20] MEDS: HYDROmorphone PCA 30 MG/30 ML SYRINGE IV SCH (01:10)
[2020-02-20] MEDS: KETOROLAC 15 MG/1 ML VIAL IV PRN ×3 (05:52→20:53)
[2020-02-20 06:30] LABS: Basophils # 0.1 10*3/uL (0.0-0.2); Basophils % 0.4 % (0.0-0.8); Eosinophils # 0.6 10*3/uL (0.0-0.87); Eosinophils % 2.8 % (0.00-10.9); Hematocrit 23.3 VOL% (42.0-52.0); Immature Granulocytes % 1.5 %; Immature Granulocytes Absolute 0.34 #; Lymphocytes # 7.6 10*3/uL (1.4-4.0); Lymphocytes % 33.7 % (21.2-54.2); Mean Corpuscular HGB Conc 34.3 GM/DL (32-36); Mean Platelet Volume 12.2 FL (9.6-12.0); Monocytes % 9.7 % (1.7-12.7); NRBC # 1.21 10*3/uL; Neutrophils % 51.9 % (38.7-73.9); Platelet Count 155 T/CUMM (130-400); Red Blood Count 2.59 MC/CUMM (3.8-5.5); Red Cell Distribution Width 18.9 % (9.3-17.3); White Blood Count 22.5 T/CUMM (4-12)
[2020-02-20 06:50] LABS: Calcium 8.3 MG/DL (8.5-10.1); Osmolality,Calculated 276.5 MOS/KG (273-304)
[2020-02-20] MEDS ORDERED: MAGNESIUM SULF RIDER 2 GM in PREMIX 1 EACH IV PRN (07:04)
[2020-02-20] MEDS ORDERED: MAGNESIUM SULF RIDER 4 GM in PREMIX 1 EACH IV PRN (07:04)
[2020-02-20 07:52] LABS: Anisocytosis 3+; Basophilic Stippling Slight; Eosinophils 3 % (0-10); Lymphocytes 32 % (20-55); Macrocytosis 1+; Nucleated Red Blood Cells 8 (0-5); Platelet Estimate Normal; Poikilocytosis 1+; Polychromasia Slight; Segmented Neutrophils 57 % (50-85); Sickle Cells 1+; Total Cells Counted 100
[2020-02-20] MEDS ORDERED: MAGNESIUM SULF RIDER 2 GM in PREMIX 1 EACH IV ONE (08:08)
[2020-02-20 08:11] LABS: Smudge Cells 1+
[2020-02-20] MEDS: NON-FORMULARY MEDICATION (Deferasirox [Jadenu] 360 MG) PO SCH (08:12)
[2020-02-20] MEDS: BENZTROPINE 1 MG TABLET PO SCH (08:16)
[2020-02-20] MEDS: risperiDONE 1 MG TABLET PO SCH (08:16)
[2020-02-20] MEDS: busPIRone 10 MG TABLET PO SCH (08:16)
[2020-02-20] MEDS: PANTOPRAZOLE 40 MG TABLET PO SCH (08:16)
[2020-02-20] MEDS: SODIUM CHLORIDE 0.9% 1,000 ML IV SCH (10:41)
[2020-02-20] MEDS ORDERED: SODIUM CHLORIDE 0.9% 1,000 ML IV PRN (13:53)
[2020-02-20] MEDS: FUROSEMIDE 20 MG/2 ML VIAL IV SCH (15:56)
[2020-02-20 21:46] LABS: Hematocrit 26.1 VOL% (42.0-52.0)
[2020-02-20 21:51] LABS: Hemoglobin 9.1 GM/DL (14.0-18.0)
[2020-02-20] MEDS: HydrOXYzine PAMOATE 50 MG CAPSULE PO PRN (21:56)
[2020-02-21] MEDS: HYDROmorphone PCA 30 MG/30 ML SYRINGE IV SCH (00:56)
[2020-02-21] MEDS: KETOROLAC 15 MG/1 ML VIAL IV PRN (02:46)
[2020-02-21 06:31] LABS: Basophils # 0.1 10*3/uL (0.0-0.2); Basophils % 0.3 % (0.0-0.8); Eosinophils # 0.9 10*3/uL (0.0-0.87); Eosinophils % 5.1 % (0.00-10.9); Hematocrit 25.9 VOL% (42.0-52.0); Hemoglobin 8.8 GM/DL (14.0-18.0); Immature Granulocytes % 1.3 %; Immature Granulocytes Absolute 0.22 #; Lymphocytes # 5.6 10*3/uL (1.4-4.0); Mean Corpuscular Volume 91.2 FL (87-102); Mean Platelet Volume 12.5 FL (9.6-12.0); Monocytes % 9.4 % (1.7-12.7); NRBC # 0.59 10*3/uL; Neutrophils % 51.9 % (38.7-73.9); Red Blood Count 2.84 MC/CUMM (3.8-5.5); White Blood Count 17.5 T/CUMM (4-12)
[2020-02-21 07:04] LABS: Platelet Count 122 T/CUMM (130-400)
[2020-02-21 07:08] LABS: Albumin 2.8 G/DL (3.4-5.0); Bilirubin,Total 5.5 MG/DL (0.2-1.0); Calcium 8.1 MG/DL (8.5-10.1); Osmolality,Calculated 281.4 MOS/KG (273-304); Total Protein 5.2 G/DL (6.4-8.3)
[2020-02-21 07:25] LABS: Platelet Estimate Adequate
[2020-02-21 07:26] LABS: Anisocytosis 3+; Poikilocytosis 2+; Polychromasia 1+; Sickle Cells 1+; Target Cells Few
[2020-02-21 07:27] LABS: Giant Platelets Few
[2020-02-21] MEDS ORDERED: MAGNESIUM SULF RIDER 2 GM in PREMIX 1 EACH IV ONE (08:23)
[2020-02-21 08:46] LABS: Risk Ratio 4.03; Thyroid Stimulating Hormone 1.52 uIU/ml (0.358-3.74)
[2020-02-21 08:58] LABS: Troponin I 0.022 NG/ML (0.00-0.045)
[2020-02-21] MEDS: PANTOPRAZOLE 40 MG TABLET PO SCH (10:00)
[2020-02-21] MEDS: risperiDONE 1 MG TABLET PO SCH (10:00)
[2020-02-21] MEDS: lisinopriL 10 MG TABLET PO SCH (10:00)
[2020-02-21] MEDS: FUROSEMIDE 20 MG/2 ML VIAL IV SCH ×2 (10:00→16:26)
[2020-02-21] MEDS: busPIRone 10 MG TABLET PO SCH (10:00)
[2020-02-21] MEDS: BENZTROPINE 1 MG TABLET PO SCH (10:01)
[2020-02-21] MEDS: NON-FORMULARY MEDICATION (Deferasirox [Jadenu] 360 MG) PO SCH (10:01)
[2020-02-21] MEDS ORDERED: POTASSIUM CHLORIDE RIDER 10 MEQ in PREMIX 1 EACH IV PRN (11:16)
[2020-02-21 14:12] LABS: Barbiturates Screen,Urine Negative (Negative); Benzodiazepines Screen,Urine Negative (Negative); Cannabinoid Screen,Urine Positive (Negative); Opiate Screen,Urine Positive (Negative); Phencyclidine Screen,Urine Negative (Negative)
[2020-02-22] MEDS ORDERED: DIAZEPAM 5 MG TABLET PO ONE (06:00)
[2020-02-22] MEDS ORDERED: diphenhydrAMINE CAP 25 MG CAPSULE PO ONE (06:00)
[2020-02-22 06:11] LABS: Basophils # 0.1 10*3/uL (0.0-0.2); Basophils % 0.4 % (0.0-0.8); Eosinophils # 1.2 10*3/uL (0.0-0.87); Eosinophils % 6.9 % (0.00-10.9); Hematocrit 26.8 VOL% (42.0-52.0); Hemoglobin 9.4 GM/DL (14.0-18.0); Immature Granulocytes Absolute 0.16 #; Lymphocytes # 4.7 10*3/uL (1.4-4.0); Lymphocytes % 27.7 % (21.2-54.2); Mean Corpuscular HGB Conc 35.1 GM/DL (32-36); Mean Corpuscular Volume 87.6 FL (87-102); Mean Platelet Volume 12.2 FL (9.6-12.0); Monocytes % 10.4 % (1.7-12.7); Neutrophils % 53.6 % (38.7-73.9); Platelet Count 102 T/CUMM (130-400); Red Blood Count 3.06 MC/CUMM (3.8-5.5); Red Cell Distribution Width 19.3 % (9.3-17.3); White Blood Count 16.8 T/CUMM (4-12)
[2020-02-22 06:42] LABS: Albumin 2.9 G/DL (3.4-5.0); Bilirubin,Total 3.9 MG/DL (0.2-1.0); Calcium 8.4 MG/DL (8.5-10.1); Osmolality,Calculated 277.7 MOS/KG (273-304); Total Protein 5.6 G/DL (6.4-8.3)
[2020-02-22 06:44] LABS: Troponin I < 0.015 NG/ML (0.00-0.045)
[2020-02-22] MEDS: lisinopriL 10 MG TABLET PO SCH (10:03)
[2020-02-22] MEDS: PANTOPRAZOLE 40 MG TABLET PO SCH (10:03)
[2020-02-22] MEDS: risperiDONE 1 MG TABLET PO SCH (10:04)
[2020-02-22] MEDS: busPIRone 10 MG TABLET PO SCH (10:04)
[2020-02-22] MEDS: BENZTROPINE 1 MG TABLET PO SCH (10:04)
[2020-02-22] MEDS: FUROSEMIDE 20 MG/2 ML VIAL IV SCH ×2 (10:07→15:36)
[2020-02-22] MEDS: NON-FORMULARY MEDICATION (Deferasirox [Jadenu] 360 MG) PO SCH (10:34)
[2020-02-22] MEDS: SODIUM CHLORIDE 0.45% 1,000 ML IV SCH (10:56)
[2020-02-22] MEDS ORDERED: KETOROLAC 30 MG/1 ML VIAL IM PRN (22:19)
[2020-02-22] MEDS: diphenhydrAMINE CAP 25 MG CAPSULE PO PRN (22:51)
[2020-02-23] MEDS: SODIUM CHLORIDE 0.45% 1,000 ML IV SCH ×2 (03:22→17:19)
[2020-02-23 06:21] LABS: Basophils # 0.1 10*3/uL (0.0-0.2); Basophils % 0.4 % (0.0-0.8); Eosinophils # 1.6 10*3/uL (0.0-0.87); Eosinophils % 9.9 % (0.00-10.9); Hematocrit 25.9 VOL% (42.0-52.0); Hemoglobin 8.8 GM/DL (14.0-18.0); Immature Granulocytes % 0.8 %; Immature Granulocytes Absolute 0.12 #; Lymphocytes # 5.6 10*3/uL (1.4-4.0); Lymphocytes % 35.8 % (21.2-54.2); Monocytes % 11.1 % (1.7-12.7); NRBC # 0.14 10*3/uL; Platelet Count 81 T/CUMM (130-400); Red Blood Count 2.91 MC/CUMM (3.8-5.5); Red Cell Distribution Width 18.8 % (9.3-17.3); White Blood Count 15.7 T/CUMM (4-12)
[2020-02-23 06:44] LABS: Band Neutrophils 1 % (0-10); Eosinophils 7 % (0-10); Lymphocytes 30 % (20-55); Segmented Neutrophils 50 % (50-85); Total Cells Counted 100
[2020-02-23 06:45] LABS: Hypochromasia 1+
[2020-02-23 06:46] LABS: Anisocytosis 1+; Ovalocytes Few; Pappenheimer Bodies Slight; Polychromasia Slight; Target Cells Few
[2020-02-23 06:47] LABS: Platelet Estimate Decreased; Sickle Cells Few
[2020-02-23 06:49] LABS: Albumin 3.2 G/DL (3.4-5.0); Bilirubin,Total 4.4 MG/DL (0.2-1.0); Calcium 8.4 MG/DL (8.5-10.1); Osmolality,Calculated 275.1 MOS/KG (273-304); Total Protein 5.9 G/DL (6.4-8.3)
[2020-02-23] MEDS: risperiDONE 1 MG TABLET PO SCH (08:43)
[2020-02-23] MEDS: FUROSEMIDE 20 MG/2 ML VIAL IV SCH ×2 (08:43→15:58)
[2020-02-23] MEDS: PANTOPRAZOLE 40 MG TABLET PO SCH (08:44)
[2020-02-23] MEDS: lisinopriL 10 MG TABLET PO SCH (08:44)
[2020-02-23] MEDS: busPIRone 10 MG TABLET PO SCH (08:44)
[2020-02-23] MEDS: BENZTROPINE 1 MG TABLET PO SCH (08:44)
[2020-02-23] MEDS: NON-FORMULARY MEDICATION (Deferasirox [Jadenu] 360 MG) PO SCH (09:30)
[2020-02-23] MEDS: HYDROmorphone PCA 30 MG/30 ML SYRINGE IV SCH (10:23)
[2020-02-23] MEDS ORDERED: fentaNYL 50 MCG/HR PATCH TRANSDERM SCH (11:30)
[2020-02-23] MEDS ORDERED: fentaNYL 25 MCG/HR PATCH TRANSDERM SCH (11:30)
[2020-02-23 14:42] LABS: Hepatitis B Core IgM Quant 0.12 Index; Hepatitis B Surface Ag Quant < 0.10 Index; Hepatitis B Surface Ag Result Negative (Negative); Hepatitis C Virus Ab Quant 0.02 Index; Hepatitis C Virus Ab Result Negative (Negative)
[2020-02-23] MEDS: oxyCODONE IR 5 MG TABLET PO PRN ×2 (18:07→23:22)
[2020-02-23] MEDS: diphenhydrAMINE CAP 25 MG CAPSULE PO PRN (20:47)
[2020-02-24] MEDS: oxyCODONE IR 5 MG TABLET PO PRN ×2 (03:25→18:38)
[2020-02-24] MEDS: SODIUM CHLORIDE 0.45% 1,000 ML IV SCH ×3 (03:41→20:11)
[2020-02-24 09:19] LABS: Basophils # 0.1 10*3/uL (0.0-0.2); Basophils % 0.6 % (0.0-0.8); Eosinophils # 1.7 10*3/uL (0.0-0.87); Eosinophils % 10.7 % (0.00-10.9); Hematocrit 27.4 VOL% (42.0-52.0); Hemoglobin 8.9 GM/DL (14.0-18.0); Immature Granulocytes % 0.7 %; Immature Granulocytes Absolute 0.11 #; Lymphocytes # 6.1 10*3/uL (1.4-4.0); Mean Corpuscular HGB Conc 32.5 GM/DL (32-36); Mean Corpuscular Volume 92.3 FL (87-102); Mean Platelet Volume 13.1 FL (9.6-12.0); Monocytes % 11.3 % (1.7-12.7); NRBC # 0.07 10*3/uL; Neutrophils % 38.7 % (38.7-73.9); Platelet Count 104 T/CUMM (130-400); Red Blood Count 2.97 MC/CUMM (3.8-5.5); Red Cell Distribution Width 18.4 % (9.3-17.3); White Blood Count 15.9 T/CUMM (4-12)
[2020-02-24 09:45] LABS: Calcium 8.5 MG/DL (8.5-10.1); Osmolality,Calculated 276.1 MOS/KG (273-304)
[2020-02-24 09:46] LABS: Albumin 3.5 G/DL (3.4-5.0); Bilirubin,Direct 1.04 MG/DL (0.0-0.20); Bilirubin,Indirect 2.9 MG/DL (0.0-1.0); Bilirubin,Total 3.9 MG/DL (0.2-1.0); Total Protein 6.7 G/DL (6.4-8.3)
[2020-02-24 09:48] LABS: Atypical Lymphocytes Few; Elliptocytes Few; Eosinophils 8 % (0-10); Howell-Jolly Bodies Slight; Hypochromasia 1+; Lymphocytes 42 % (20-55); Platelet Estimate Decreased; Segmented Neutrophils 40 % (50-85); Sickle Cells 1+; Total Cells Counted 100
[2020-02-24] MEDS: BENZTROPINE 1 MG TABLET PO SCH (09:48)
[2020-02-24] MEDS: FUROSEMIDE 20 MG/2 ML VIAL IV SCH ×2 (09:48→17:03)
[2020-02-24] MEDS: busPIRone 10 MG TABLET PO SCH (09:48)
[2020-02-24 09:49] LABS: Pappenheimer Bodies Slight
[2020-02-24] MEDS: lisinopriL 10 MG TABLET PO SCH (09:49)
[2020-02-24] MEDS: PANTOPRAZOLE 40 MG TABLET PO SCH (09:49)
[2020-02-24] MEDS: NON-FORMULARY MEDICATION (Deferasirox [Jadenu] 360 MG) PO SCH (09:49)
[2020-02-24] MEDS: risperiDONE 1 MG TABLET PO SCH (09:49)
[2020-02-24] MEDS ORDERED: HYDROmorphone 2 MG/1 ML VIAL IV ONE (10:36)
[2020-02-24] MEDS: HYDROXYUREA 500 MG CAPSULE PO SCH ×2 (11:22→20:09)
[2020-02-24] MEDS: HYDROmorphone 2 MG/1 ML VIAL IV PRN ×2 (15:50→20:10)
[2020-02-24] MEDS: diphenhydrAMINE CAP 25 MG CAPSULE PO PRN (17:13)
[2020-02-24] MEDS: HydrOXYzine PAMOATE 50 MG CAPSULE PO PRN (20:11)
[2020-02-24] MEDS ORDERED: FOLIC ACID 1 MG TABLET PO SCH (21:00)
[2020-02-25] MEDS: HYDROmorphone 2 MG/1 ML VIAL IV PRN ×3 (00:15→09:54)
[2020-02-25] MEDS: oxyCODONE IR 5 MG TABLET PO PRN ×2 (04:21→08:53)
[2020-02-25] MEDS: diphenhydrAMINE CAP 25 MG CAPSULE PO PRN (04:21)
[2020-02-25 07:42] LABS: Basophils # 0.1 10*3/uL (0.0-0.2); Basophils % 0.8 % (0.0-0.8); Eosinophils # 1.5 10*3/uL (0.0-0.87); Eosinophils % 10.7 % (0.00-10.9); Hematocrit 23.7 VOL% (42.0-52.0); Immature Granulocytes % 0.4 %; Immature Granulocytes Absolute 0.06 #; Lymphocytes # 5.8 10*3/uL (1.4-4.0); Lymphocytes % 41.8 % (21.2-54.2); Mean Corpuscular HGB Conc 32.9 GM/DL (32-36); Mean Corpuscular Volume 92.2 FL (87-102); Mean Platelet Volume 12.6 FL (9.6-12.0); Monocytes % 13.2 % (1.7-12.7); NRBC # 0.05 10*3/uL; Neutrophils % 33.1 % (38.7-73.9); Red Blood Count 2.57 MC/CUMM (3.8-5.5); Red Cell Distribution Width 18.2 % (9.3-17.3); White Blood Count 13.8 T/CUMM (4-12)
[2020-02-25 07:45] LABS: Hemoglobin 7.8 GM/DL (14.0-18.0); Platelet Count 73 T/CUMM (130-400)
[2020-02-25 07:59] LABS: Elliptocytes Few; Eosinophils 18 % (0-10); Hypochromasia 2+; Lymphocytes 38 % (20-55); Nucleated Red Blood Cells 1 (0-5); Platelet Estimate Decreased; Segmented Neutrophils 36 % (50-85); Sickle Cells 1+; Total Cells Counted 100
[2020-02-25 08:02] LABS: Albumin 3.3 G/DL (3.4-5.0); Calcium 9.1 MG/DL (8.5-10.1); Osmolality,Calculated 275.2 MOS/KG (273-304); Total Protein 6.1 G/DL (6.4-8.3)
[2020-02-25] MEDS: FUROSEMIDE 20 MG/2 ML VIAL IV SCH (08:53)
[2020-02-25] MEDS: risperiDONE 1 MG TABLET PO SCH (08:56)
[2020-02-25] MEDS: busPIRone 10 MG TABLET PO SCH (08:57)
[2020-02-25] MEDS: PANTOPRAZOLE 40 MG TABLET PO SCH (08:57)
[2020-02-25] MEDS: BENZTROPINE 1 MG TABLET PO SCH (08:57)
[2020-02-25] MEDS: lisinopriL 10 MG TABLET PO SCH (08:57)
[2020-02-25] MEDS: SODIUM CHLORIDE 0.45% 1,000 ML IV SCH (08:57)
[2020-02-25] MEDS: HYDROXYUREA 500 MG CAPSULE PO SCH (08:57)
[2020-02-25 09:33] VITALS: BP 129/72
[2020-02-25] MEDS: NON-FORMULARY MEDICATION (Deferasirox [Jadenu] 360 MG) PO SCH (09:35)
== END 2020-02-25 11:26 | disposition home or self-care (01) | DRG 812 ==
LOC: N.ED 14:19 → N.EDINP 02-19 00:03 → SUATTDRO 02-19 00:03 → N.3E 02-19 12:52 → N.4E 02-24 15:28
PROVIDERS: ADMIT Internal Medicine; ATTEND Emergency Medicine

== ENCOUNTER 2020-04-22 14:08 | Inpatient (IN) ==
[2020-04-22] MEDS ORDERED: ONDANSETRON 4 MG/2 ML VIAL IV ONE (16:37)
[2020-04-22] MEDS ORDERED: LACTATED RINGERS 1,000 ML IV ONE (16:37)
[2020-04-22] MEDS ORDERED: HYDROmorphone 2 MG/1 ML VIAL IV STA (16:38)
[2020-04-22] MEDS ORDERED: diphenhydrAMINE 50 MG/1 ML VIAL IV STA (17:55)
[2020-04-22] MEDS ORDERED: diphenhydrAMINE 50 MG/1 ML VIAL ONE (17:56)
[2020-04-22 18:05] LABS: Basophils # 0.2 10*3/uL (0.0-0.2); Basophils % 0.8 % (0.0-0.8); Eosinophils # 1.4 10*3/uL (0.0-0.87); Eosinophils % 7.7 % (0.00-10.9); Hematocrit 19.3 VOL% (42.0-52.0); Hemoglobin 6.7 GM/DL (14.0-18.0); Immature Granulocytes % 0.9 %; Immature Granulocytes Absolute 0.16 #; Lymphocytes # 6.4 10*3/uL (1.4-4.0); Lymphocytes % 35.2 % (21.2-54.2); Mean Corpuscular HGB Conc 34.7 GM/DL (32-36); Mean Corpuscular Volume 87.7 FL (87-102); Mean Platelet Volume 12.1 FL (9.6-12.0); Monocytes % 10.1 % (1.7-12.7); NRBC # 0.13 10*3/uL; Neutrophils % 45.3 % (38.7-73.9); Platelet Count 143 T/CUMM (130-400); Red Cell Distribution Width 18.7 % (9.3-17.3); White Blood Count 18.2 T/CUMM (4-12)
[2020-04-22 18:17] LABS: Bilirubin,Urine Negative (Negative); Blood, Urine Small mg/dL (Negative); Glucose,Urine (UA) Negative (Negative); Hyaline Casts,Urine 4 /LPF (0-3); Ketones,Urine Negative (Negative); Mucus,Urine Occasional /LPF (Occasional); Nitrite,Urine Negative (Negative); Protein,Urine 100 MG/DL; RBC,Urine <1 /HPF (0-4); Squamous Epithelial Cell,Urine Occasional /HPF (0-10); Urine Appearance CLEAR (Clear); Urine Color Yellow (Yellow); Urine Specific Gravity 1.011 (1.001-1.035); Urine Urobilinogen < 2.0 EU/DL (0.2-1.0)
[2020-04-22 18:20] LABS: Albumin 3.5 G/DL (3.4-5.0); Calcium 8.5 MG/DL (8.5-10.1); Osmolality,Calculated 279.4 MOS/KG (273-304); Total Protein 6.2 G/DL (6.4-8.3)
[2020-04-22 18:31] LABS: Eosinophils 3 % (0-10); Lymphocytes 38 % (20-55); Segmented Neutrophils 51 % (50-85); Total Cells Counted 100
[2020-04-22 18:32] LABS: Platelet Estimate Adequate; Sickle Cells 1+
[2020-04-22 18:33] LABS: Anisocytosis 1+; Macrocytosis 1+; Microcytosis 1+; Poikilocytosis 1+; Reactive Lymphocytes 1+
[2020-04-22] MEDS ORDERED: SODIUM CHLORIDE 0.9% 1,000 ML IV PRN (18:37)
[2020-04-22] MEDS ORDERED: guaiFENesin/DM ER 600-30 MG TABLET PO PRN (18:46)
[2020-04-22] MEDS ORDERED: diphenhydrAMINE CAP 25 MG CAPSULE PO PRN (18:46)
[2020-04-22] MEDS ORDERED: ONDANSETRON 4 MG/2 ML VIAL IV PRN (18:46)
[2020-04-22] MEDS ORDERED: hydrALAZINE 20 MG/1 ML VIAL IV PRN (18:46)
[2020-04-22] MEDS ORDERED: NICOTINE 21 MG/24 HR PATCH TRANSDERM PRN (18:46)
[2020-04-22] MEDS ORDERED: GLUCAGON 1 MG VIAL IM PRN (18:46)
[2020-04-22] MEDS ORDERED: ZALEPLON 5 MG CAPSULE PO PRN (18:46)
[2020-04-22] MEDS ORDERED: DEXTROSE 50% 25 GM/50 ML VIAL IV PRN (18:46)
[2020-04-22] MEDS ORDERED: ACETAMINOPHEN 325 MG TABLET PO PRN (18:46)
[2020-04-22] MEDS ORDERED: SODIUM CHLORIDE 0.9% 1,000 ML IV SCH (19:00)
[2020-04-22] MEDS: HYDROmorphone 2 MG/1 ML VIAL IV PRN (21:56)
[2020-04-22] MEDS: DOCUSATE SODIUM 100 MG CAPSULE PO SCH (21:56)
[2020-04-22] MEDS ORDERED: diphenhydrAMINE 50 MG/1 ML VIAL IM PRN (23:19)
[2020-04-23] MEDS: diphenhydrAMINE 50 MG/1 ML VIAL IV PRN ×4 (00:01→22:28)
[2020-04-23] MEDS: HYDROmorphone 2 MG/1 ML VIAL IV PRN ×4 (02:54→21:18)
[2020-04-23] MEDS ORDERED: INFLUENZA VIRUS VACCINE 0.5 ML SYRINGE IM ONE (09:00)
[2020-04-23] MEDS: amLODIPine 5 MG TABLET PO SCH (10:20)
[2020-04-23] MEDS: DOCUSATE SODIUM 100 MG CAPSULE PO SCH ×2 (10:21→21:18)
[2020-04-23] MEDS: PANTOPRAZOLE 40 MG TABLET PO SCH (10:21)
[2020-04-23 12:55] LABS: Basophils # 0.1 10*3/uL (0.0-0.2); Basophils % 0.8 % (0.0-0.8); Eosinophils # 1.3 10*3/uL (0.0-0.87); Eosinophils % 7.4 % (0.00-10.9); Hematocrit 26.4 VOL% (42.0-52.0); Immature Granulocytes % 0.6 %; Immature Granulocytes Absolute 0.11 #; Lymphocytes # 5.3 10*3/uL (1.4-4.0); Lymphocytes % 31.3 % (21.2-54.2); Mean Corpuscular HGB Conc 34.8 GM/DL (32-36); Mean Corpuscular Volume 88.9 FL (87-102); Mean Platelet Volume 12.3 FL (9.6-12.0); Monocytes % 8.9 % (1.7-12.7); Platelet Count 135 T/CUMM (130-400); Red Cell Distribution Width 17.5 % (9.3-17.3); White Blood Count 17.1 T/CUMM (4-12)
[2020-04-23 13:00] LABS: Hemoglobin 9.2 GM/DL (14.0-18.0); Red Blood Count 2.97 MC/CUMM (3.8-5.5)
[2020-04-23 13:15] LABS: Calcium 8.8 MG/DL (8.5-10.1); Osmolality,Calculated 275.5 MOS/KG (273-304)
[2020-04-23 13:22] LABS: Anisocytosis 1+; Eosinophils 11 % (0-10); Hypochromasia 1+; Lymphocytes 35 % (20-55); Nucleated Red Blood Cells 2 (0-5); Segmented Neutrophils 46 % (50-85); Target Cells 1+; Total Cells Counted 100
[2020-04-23 13:23] LABS: Atypical Lymphocytes Few; Platelet Estimate Adequate; Poikilocytosis 1+; Polychromasia 1+; Sickle Cells 2+
[2020-04-23 16:06] LABS: Bilirubin,Urine Negative (Negative); Blood, Urine Moderate mg/dL (Negative); Glucose,Urine (UA) Negative (Negative); Ketones,Urine Negative (Negative); Nitrite,Urine Negative (Negative); Protein,Urine 100 MG/DL; RBC,Urine <1 /HPF (0-4); Urine Appearance CLEAR (Clear); Urine Color Yellow (Yellow); Urine Specific Gravity 1.006 (1.001-1.035); Urine Urobilinogen < 2.0 EU/DL (0.2-1.0); WBC,Urine <1 /HPF (0-6)
[2020-04-24] MEDS: HYDROmorphone 2 MG/1 ML VIAL IV PRN ×4 (01:20→20:49)
[2020-04-24 06:36] LABS: Calcium 8.5 MG/DL (8.5-10.1); Osmolality,Calculated 267.1 MOS/KG (273-304)
[2020-04-24] MEDS ORDERED: MAGNESIUM SULF RIDER 2 GM in PREMIX 1 EACH IV ONE (09:09)
[2020-04-24] MEDS: PANTOPRAZOLE 40 MG TABLET PO SCH (09:19)
[2020-04-24] MEDS: amLODIPine 5 MG TABLET PO SCH (09:20)
[2020-04-24] MEDS: DOCUSATE SODIUM 100 MG CAPSULE PO SCH ×2 (09:20→20:49)
[2020-04-24] MEDS: diphenhydrAMINE 50 MG/1 ML VIAL IV PRN ×3 (10:46→23:15)
[2020-04-24 10:56] LABS: Basophils # 0.1 10*3/uL (0.0-0.2); Basophils % 0.6 % (0.0-0.8); Eosinophils % 6.7 % (0.00-10.9); Hematocrit 25.7 VOL% (42.0-52.0); Hemoglobin 8.7 GM/DL (14.0-18.0); Immature Granulocytes % 0.4 %; Immature Granulocytes Absolute 0.06 #; Lymphocytes # 3.3 10*3/uL (1.4-4.0); Lymphocytes % 22.6 % (21.2-54.2); Mean Corpuscular HGB Conc 33.9 GM/DL (32-36); Mean Corpuscular Volume 88.3 FL (87-102); Mean Platelet Volume 12.1 FL (9.6-12.0); Monocytes % 8.8 % (1.7-12.7); NRBC # 0.08 10*3/uL; Neutrophils % 60.9 % (38.7-73.9); Platelet Count 126 T/CUMM (130-400); Red Blood Count 2.91 MC/CUMM (3.8-5.5); Red Cell Distribution Width 18.1 % (9.3-17.3); White Blood Count 14.4 T/CUMM (4-12)
[2020-04-24 11:14] LABS: Eosinophils 7 % (0-10); Hypochromasia 2+; Lymphocytes 22 % (20-55); Nucleated Red Blood Cells 1 (0-5); Segmented Neutrophils 65 % (50-85); Total Cells Counted 100
[2020-04-24 11:15] LABS: Elliptocytes Few; Platelet Estimate Adequate; Sickle Cells 1+
[2020-04-24 11:16] LABS: Atypical Lymphocytes Few; Macrocytosis Slight; Pappenheimer Bodies Few
[2020-04-24 11:17] LABS: Polychromasia Slight
[2020-04-25] MEDS: HYDROmorphone 2 MG/1 ML VIAL IV PRN ×2 (03:06→09:13)
[2020-04-25] MEDS: diphenhydrAMINE 50 MG/1 ML VIAL IV PRN (05:20)
[2020-04-25 08:23] LABS: Basophils # 0.1 10*3/uL (0.0-0.2); Basophils % 0.6 % (0.0-0.8); Eosinophils % 6.6 % (0.00-10.9); Hematocrit 26.1 VOL% (42.0-52.0); Hemoglobin 8.9 GM/DL (14.0-18.0); Immature Granulocytes % 0.4 %; Immature Granulocytes Absolute 0.06 #; Lymphocytes # 4.5 10*3/uL (1.4-4.0); Lymphocytes % 30.7 % (21.2-54.2); Mean Corpuscular HGB Conc 34.1 GM/DL (32-36); Mean Corpuscular Volume 89.1 FL (87-102); Mean Platelet Volume 12.2 FL (9.6-12.0); Monocytes % 9.9 % (1.7-12.7); NRBC # 0.06 10*3/uL; Neutrophils % 51.8 % (38.7-73.9); Platelet Count 126 T/CUMM (130-400); Red Blood Count 2.93 MC/CUMM (3.8-5.5); Red Cell Distribution Width 18.1 % (9.3-17.3); White Blood Count 14.7 T/CUMM (4-12)
[2020-04-25 08:41] LABS: Calcium 8.3 MG/DL (8.5-10.1); Howell-Jolly Bodies Few; Hypochromasia 1+; Osmolality,Calculated 275.5 MOS/KG (273-304); Pappenheimer Bodies Slight; Platelet Estimate Adequate; Sickle Cells 1+
[2020-04-25 08:42] LABS: Elliptocytes Few; Macrocytosis Slight
[2020-04-25] MEDS: PANTOPRAZOLE 40 MG TABLET PO SCH (09:12)
[2020-04-25] MEDS: DOCUSATE SODIUM 100 MG CAPSULE PO SCH (09:12)
[2020-04-25] MEDS: amLODIPine 5 MG TABLET PO SCH (09:12)
[2020-04-25 11:58] VITALS: BP 160/50
== END 2020-04-25 13:25 | disposition home or self-care (01) | DRG 812 ==
LOC: N.EDINP 14:08 → N.ED 14:08 → N.3E 19:52
PROVIDERS: ADMIT Internal Medicine; ATTEND Internal Medicine

== ENCOUNTER 2020-05-24 15:55 | Inpatient (IN) ==
[2020-05-24] MEDS ORDERED: HYDROmorphone 2 MG/1 ML VIAL IV STA ×2 (17:44→19:56)
[2020-05-24] MEDS ORDERED: diphenhydrAMINE 50 MG/1 ML VIAL IV STA (17:45)
[2020-05-24] MEDS ORDERED: ONDANSETRON 4 MG/2 ML VIAL IV STA (18:17)
[2020-05-24] MEDS ORDERED: SODIUM CHLORIDE 0.9% 1,000 ML IV STA (18:17)
[2020-05-24 18:28] LABS: Albumin 3.6 G/DL (3.4-5.0); Bilirubin,Total 2.1 MG/DL (0.2-1.0); Calcium 8.4 MG/DL (8.5-10.1); Osmolality,Calculated 281.3 MOS/KG (273-304); Total Protein 6.3 G/DL (6.4-8.3)
[2020-05-24 18:33] LABS: Basophils # 0.1 10*3/uL (0.0-0.2); Basophils % 0.4 % (0.0-0.8); Eosinophils # 1.4 10*3/uL (0.0-0.87); Eosinophils % 6.7 % (0.00-10.9); Hematocrit 20.5 VOL% (42.0-52.0); Hemoglobin 7.4 GM/DL (14.0-18.0); Immature Granulocytes % 0.8 %; Immature Granulocytes Absolute 0.18 #; Lymphocytes # 7.9 10*3/uL (1.4-4.0); Lymphocytes % 37.2 % (21.2-54.2); Mean Corpuscular HGB Conc 36.1 GM/DL (32-36); Mean Corpuscular Volume 88.7 FL (87-102); Mean Platelet Volume 12.1 FL (9.6-12.0); Monocytes % 8.4 % (1.7-12.7); NRBC # 0.21 10*3/uL; Neutrophils % 46.5 % (38.7-73.9); Red Blood Count 2.31 MC/CUMM (3.8-5.5); White Blood Count 21.2 T/CUMM (4-12)
[2020-05-24 18:36] LABS: Platelet Count 35 T/CUMM (130-400)
[2020-05-24 18:45] LABS: Eosinophils 5 % (0-10); Lymphocytes 54 % (20-55); Segmented Neutrophils 35 % (50-85); Total Cells Counted 100
[2020-05-24 18:47] LABS: Ovalocytes Slight; Polychromasia Slight; Sickle Cells Few
[2020-05-24 18:50] LABS: Platelet Estimate Decreased
[2020-05-24] MEDS ORDERED: GLUCAGON 1 MG VIAL IM PRN (19:58)
[2020-05-24] MEDS ORDERED: DEXTROSE 50% 25 GM/50 ML VIAL IV PRN (19:58)
[2020-05-24] MEDS ORDERED: SODIUM CHLORIDE 0.9% 1,000 ML IV PRN (20:05)
[2020-05-24] MEDS: diphenhydrAMINE CAP 25 MG CAPSULE PO PRN (22:33)
[2020-05-25] MEDS: SODIUM CHLORIDE 0.45% 1,000 ML IV SCH ×4 (01:00→21:01)
[2020-05-25] MEDS: HYDROmorphone 2 MG/1 ML VIAL IV PRN ×5 (01:29→21:02)
[2020-05-25 04:44] LABS: Basophils # 0.1 10*3/uL (0.0-0.2); Basophils % 0.7 % (0.0-0.8); Eosinophils # 1.5 10*3/uL (0.0-0.87); Eosinophils % 7.1 % (0.00-10.9); Hematocrit 23.7 VOL% (42.0-52.0); Hemoglobin 8.3 GM/DL (14.0-18.0); Immature Granulocytes % 0.4 %; Immature Granulocytes Absolute 0.09 #; Lymphocytes # 8.3 10*3/uL (1.4-4.0); Lymphocytes % 38.6 % (21.2-54.2); Mean Corpuscular Volume 88.1 FL (87-102); Mean Platelet Volume 12.4 FL (9.6-12.0); Monocytes % 9.1 % (1.7-12.7); NRBC # 0.14 10*3/uL; Neutrophils % 44.1 % (38.7-73.9); Platelet Count 139 T/CUMM (130-400); Red Blood Count 2.69 MC/CUMM (3.8-5.5); Red Cell Distribution Width 18.9 % (9.3-17.3); White Blood Count 21.5 T/CUMM (4-12)
[2020-05-25 04:53] LABS: Calcium 8.5 MG/DL (8.5-10.1); Osmolality,Calculated 275.5 MOS/KG (273-304)
[2020-05-25 05:05] LABS: Eosinophils 5 % (0-10); Lymphocytes 37 % (20-55); Nucleated Red Blood Cells 1 (0-5); Platelet Estimate Adequate; Segmented Neutrophils 49 % (50-85); Total Cells Counted 100
[2020-05-25 05:06] LABS: Hypochromasia 1+; Microcytosis 1+; Ovalocytes Slight
[2020-05-25 05:28] LABS: Bilirubin,Urine Negative (Negative); Blood, Urine Small mg/dL (Negative); Glucose,Urine (UA) Negative (Negative); Ketones,Urine Negative (Negative); Mucus,Urine Occasional /LPF (Occasional); Nitrite,Urine Negative (Negative); Protein,Urine 30 MG/DL; RBC,Urine <1 /HPF (0-4); Urine Appearance CLEAR (Clear); Urine Color Yellow (Yellow); Urine Specific Gravity 1.009 (1.001-1.035); Urine Urobilinogen < 2.0 EU/DL (0.2-1.0)
[2020-05-25] MEDS: diphenhydrAMINE CAP 25 MG CAPSULE PO PRN (06:10)
[2020-05-25] MEDS ORDERED: oxyCODONE/ACETAMINOPHEN 5-325 MG TABLET PO PRN ×2 (07:02→13:11)
[2020-05-25] MEDS ORDERED: MAGNESIUM SULF RIDER 2 GM in PREMIX 1 EACH IV ONE (07:07)
[2020-05-25] MEDS ORDERED: DEFERASIROX 360 MG PO SCH (09:00)
[2020-05-25] MEDS ORDERED: PANTOPRAZOLE 40 MG TABLET PO SCH (09:00)
[2020-05-25] MEDS: FOLIC ACID 1 MG TABLET PO SCH (09:45)
[2020-05-25] MEDS: amLODIPine 5 MG TABLET PO SCH (09:46)
[2020-05-25] MEDS ORDERED: oxyCODONE/ACETAMINOPHEN 5-325 MG TABLET ONE (09:57)
[2020-05-25] MEDS ORDERED: NALOXONE 0.4 MG/ML VIAL IV PRN (12:24)
[2020-05-25] MEDS ORDERED: HYDROmorphone PCA 30 MG/30 ML SYRINGE IV SCH (12:30)
[2020-05-25] MEDS: ONDANSETRON 4 MG/2 ML VIAL IV PRN (22:14)
[2020-05-26] MEDS: HYDROmorphone 2 MG/1 ML VIAL IV PRN ×2 (01:00→05:15)
[2020-05-26] MEDS: SODIUM CHLORIDE 0.45% 1,000 ML IV SCH ×2 (05:15→14:29)
[2020-05-26] MEDS: diphenhydrAMINE CAP 25 MG CAPSULE PO PRN ×3 (05:19→23:15)
[2020-05-26 06:25] LABS: Basophils # 0.1 10*3/uL (0.0-0.2); Basophils % 0.5 % (0.0-0.8); Eosinophils # 1.4 10*3/uL (0.0-0.87); Eosinophils % 6.9 % (0.00-10.9); Hematocrit 22.5 VOL% (42.0-52.0); Hemoglobin 7.8 GM/DL (14.0-18.0); Immature Granulocytes % 1.2 %; Immature Granulocytes Absolute 0.24 #; Lymphocytes # 5.4 10*3/uL (1.4-4.0); Lymphocytes % 27.3 % (21.2-54.2); Mean Corpuscular HGB Conc 34.7 GM/DL (32-36); Mean Corpuscular Volume 88.9 FL (87-102); Mean Platelet Volume 11.3 FL (9.6-12.0); Monocytes % 9.1 % (1.7-12.7); NRBC # 0.13 10*3/uL; Platelet Count 117 T/CUMM (130-400); Red Blood Count 2.53 MC/CUMM (3.8-5.5); Red Cell Distribution Width 19.2 % (9.3-17.3); White Blood Count 19.7 T/CUMM (4-12)
[2020-05-26 06:50] LABS: Eosinophils 4 % (0-10); Hypochromasia 2+; Lymphocytes 39 % (20-55); Platelet Estimate Decreased; Segmented Neutrophils 48 % (50-85); Sickle Cells Few; Total Cells Counted 100
[2020-05-26 06:51] LABS: Microcytosis 1+
[2020-05-26 07:01] LABS: Albumin 3.5 G/DL (3.4-5.0); Bilirubin,Total 3.3 MG/DL (0.2-1.0); Calcium 8.7 MG/DL (8.5-10.1); Osmolality,Calculated 274.7 MOS/KG (273-304); Total Protein 6.2 G/DL (6.4-8.3)
[2020-05-26] MEDS ORDERED: HYDROmorphone PCA 30 MG/30 ML SYRINGE IV SCH ×2 (09:00→12:30)
[2020-05-26] MEDS: FOLIC ACID 1 MG TABLET PO SCH (09:07)
[2020-05-26] MEDS: amLODIPine 5 MG TABLET PO SCH (09:07)
[2020-05-26] MEDS: JADENU PO SCH (12:01)
[2020-05-26] MEDS ORDERED: MAGNESIUM SULF RIDER 2 GM in PREMIX 1 EACH IV PRN (12:54)
[2020-05-26] MEDS ORDERED: MAGNESIUM SULF RIDER 4 GM in PREMIX 1 EACH IV PRN (12:54)
[2020-05-26] MEDS: ONDANSETRON 4 MG/2 ML VIAL IV PRN (18:15)
[2020-05-27] MEDS: SODIUM CHLORIDE 0.45% 1,000 ML IV SCH ×3 (02:24→11:38)
[2020-05-27] MEDS: ONDANSETRON 4 MG/2 ML VIAL IV PRN ×2 (05:58→18:18)
[2020-05-27 05:59] LABS: Basophils # 0.1 10*3/uL (0.0-0.2); Basophils % 0.5 % (0.0-0.8); Eosinophils # 1.2 10*3/uL (0.0-0.87); Eosinophils % 6.1 % (0.00-10.9); Hematocrit 23.6 VOL% (42.0-52.0); Hemoglobin 8.3 GM/DL (14.0-18.0); Immature Granulocytes % 0.4 %; Immature Granulocytes Absolute 0.08 #; Lymphocytes # 5.8 10*3/uL (1.4-4.0); Mean Corpuscular HGB Conc 35.2 GM/DL (32-36); Mean Corpuscular Volume 87.4 FL (87-102); Mean Platelet Volume 12.5 FL (9.6-12.0); Monocytes % 10.5 % (1.7-12.7); NRBC # 0.09 10*3/uL; Neutrophils % 52.5 % (38.7-73.9); Platelet Count 117 T/CUMM (130-400); Red Cell Distribution Width 18.6 % (9.3-17.3); White Blood Count 19.5 T/CUMM (4-12)
[2020-05-27 06:09] LABS: Albumin 4.1 G/DL (3.4-5.0); Bilirubin,Total 4.7 MG/DL (0.2-1.0); Osmolality,Calculated 266.2 MOS/KG (273-304); Total Protein 7.2 G/DL (6.4-8.3)
[2020-05-27] MEDS ORDERED: HYDROmorphone PCA 30 MG/30 ML SYRINGE IV SCH (09:00)
[2020-05-27] MEDS: FOLIC ACID 1 MG TABLET PO SCH (09:48)
[2020-05-27] MEDS: amLODIPine 5 MG TABLET PO SCH (09:48)
[2020-05-27] MEDS: JADENU PO SCH (11:17)
[2020-05-27 12:40] LABS: Eosinophils 4 % (0-10); Lymphocytes 31 % (20-55); Platelet Estimate Adequate; Schistocytes Few; Segmented Neutrophils 62 % (50-85); Total Cells Counted 100
[2020-05-27 12:41] LABS: Hypochromasia Slight; Poikilocytosis 2+; Polychromasia Slight; Sickle Cells 1+; Stomatocytes Few; Target Cells Few
[2020-05-27] MEDS: diphenhydrAMINE CAP 25 MG CAPSULE PO PRN (18:21)
[2020-05-27] MEDS ORDERED: PROMETHAZINE INJ 12.5 MG in SODIUM CHLORIDE 0.9% 50 ML IV PRN (19:27)
[2020-05-28 05:29] LABS: Albumin 3.6 G/DL (3.4-5.0); Bilirubin,Total 4.9 MG/DL (0.2-1.0); Calcium 8.9 MG/DL (8.5-10.1); Osmolality,Calculated 273.7 MOS/KG (273-304); Total Protein 6.2 G/DL (6.4-8.3)
[2020-05-28 06:22] LABS: Hepatitis B Core IgM Quant 0.07 Index; Hepatitis B Surface Ag Quant < 0.10 Index; Hepatitis B Surface Ag Result Negative (Negative); Hepatitis C Virus Ab Quant < 0.02 Index; Hepatitis C Virus Ab Result Negative (Negative)
[2020-05-28 07:55] VITALS: BP 124/67
[2020-05-28] MEDS: JADENU PO SCH (08:31)
[2020-05-28] MEDS: amLODIPine 5 MG TABLET PO SCH (09:19)
[2020-05-28] MEDS: FOLIC ACID 1 MG TABLET PO SCH (09:19)
[2020-05-28] MEDS ORDERED: oxyCODONE/ACETAMINOPHEN 5-325 MG TABLET PO PRN (11:54)
== END 2020-05-28 13:05 | disposition home or self-care (01) | DRG 812 ==
LOC: N.ED 15:55 → N.EDINP 15:55 → N.5E 05-25 09:48 → SUATTDRO 05-26 10:52
PROVIDERS: ADMIT Family Medicine; ATTEND Internal Medicine

== ENCOUNTER 2020-06-11 18:20 | Inpatient (IN) ==
[2020-06-11] MEDS ORDERED: SODIUM CHLORIDE 0.9% 1,000 ML IV STA (21:20)
[2020-06-11] MEDS ORDERED: HYDROmorphone 2 MG/1 ML VIAL IV STA ×2 (21:26→23:24)
[2020-06-11] MEDS ORDERED: ONDANSETRON 4 MG/2 ML VIAL IV ONE (21:26)
[2020-06-11 22:38] LABS: Albumin 3.7 G/DL (3.4-5.0); Bilirubin,Total 3.3 MG/DL (0.2-1.0); Osmolality,Calculated 283.1 MOS/KG (273-304); Total Protein 6.7 G/DL (6.4-8.3)
[2020-06-11 22:41] LABS: Basophils # 0.2 10*3/uL (0.0-0.2); Basophils % 0.8 % (0.0-0.8); Eosinophils # 1.6 10*3/uL (0.0-0.87); Hematocrit 21.7 VOL% (42.0-52.0); Hemoglobin 7.7 GM/DL (14.0-18.0); Immature Granulocytes % 0.7 %; Immature Granulocytes Absolute 0.15 #; Lymphocytes # 7.6 10*3/uL (1.4-4.0); Lymphocytes % 34.1 % (21.2-54.2); Mean Corpuscular HGB Conc 35.5 GM/DL (32-36); Mean Corpuscular Volume 91.6 FL (87-102); Mean Platelet Volume 12.2 FL (9.6-12.0); Monocytes % 9.5 % (1.7-12.7); NRBC # 0.17 10*3/uL; Neutrophils % 47.9 % (38.7-73.9); Platelet Count 145 T/CUMM (130-400); Red Blood Count 2.37 MC/CUMM (3.8-5.5); White Blood Count 22.3 T/CUMM (4-12)
[2020-06-11 22:46] LABS: Bilirubin,Urine Negative (Negative); Blood, Urine Moderate mg/dL (Negative); Glucose,Urine (UA) Negative (Negative); Hyaline Casts,Urine 1 /LPF (0-3); Ketones,Urine Negative (Negative); Mucus,Urine Occasional /LPF (Occasional); Nitrite,Urine Negative (Negative); Protein,Urine 100 MG/DL; RBC,Urine 2 /HPF (0-4); Urine Appearance CLEAR (Clear); Urine Color Yellow (Yellow); Urine Specific Gravity 1.009 (1.001-1.035); Urine Urobilinogen < 2.0 EU/DL (0.2-1.0)
[2020-06-11] MEDS ORDERED: diphenhydrAMINE 50 MG/1 ML VIAL ONE (23:27)
[2020-06-11] MEDS ORDERED: diphenhydrAMINE 50 MG/1 ML VIAL IV STA (23:30)
[2020-06-12] MEDS ORDERED: ONDANSETRON 4 MG/2 ML VIAL IV PRN (00:53)
[2020-06-12] MEDS ORDERED: oxyCODONE/ACETAMINOPHEN 5-325 MG TABLET PO PRN (00:53)
[2020-06-12] MEDS: ALBUTEROL/IPRATROPIUM 3 ML NEB RESP TX SCH ×4 (01:09→12:59)
[2020-06-12] MEDS: HYDROmorphone 2 MG/1 ML VIAL IV PRN ×2 (02:50→06:33)
[2020-06-12 02:51] LABS: Eosinophils 6 % (0-10); Lymphocytes 30 % (20-55); Segmented Neutrophils 53 % (50-85); Total Cells Counted 100
[2020-06-12 02:52] LABS: Anisocytosis 3+; Hypochromasia 2+; Macrocytosis 2+; Microcytosis 1+; Nucleated Red Blood Cells 4 (0-5); Ovalocytes 2+; Platelet Estimate Adequate; Sickle Cells 2+; Target Cells 1+
[2020-06-12 02:53] LABS: Elliptocytes Few; Howell-Jolly Bodies 2+; Pappenheimer Bodies 2+
[2020-06-12] MEDS: ENOXAPARIN 40 MG/0.4 ML SYRINGE SUBCUT SCH ×2 (03:49→22:15)
[2020-06-12] MEDS: SODIUM CHLORIDE 0.45% 1,000 ML IV SCH ×3 (03:49→18:41)
[2020-06-12 06:24] LABS: Basophils # 0.2 10*3/uL (0.0-0.2); Basophils % 0.8 % (0.0-0.8); Eosinophils # 1.6 10*3/uL (0.0-0.87); Eosinophils % 6.9 % (0.00-10.9); Hematocrit 20.6 VOL% (42.0-52.0); Hemoglobin 7.4 GM/DL (14.0-18.0); Immature Granulocytes % 0.8 %; Immature Granulocytes Absolute 0.19 #; Lymphocytes % 38.5 % (21.2-54.2); Mean Corpuscular HGB Conc 35.9 GM/DL (32-36); Mean Corpuscular Volume 92.4 FL (87-102); Mean Platelet Volume 12.8 FL (9.6-12.0); Monocytes % 10.4 % (1.7-12.7); NRBC # 0.14 10*3/uL; Neutrophils % 42.6 % (38.7-73.9); Platelet Count 134 T/CUMM (130-400); Red Blood Count 2.23 MC/CUMM (3.8-5.5); Red Cell Distribution Width 20.1 % (9.3-17.3); White Blood Count 23.4 T/CUMM (4-12)
[2020-06-12] MEDS ORDERED: NALOXONE 0.4 MG/ML VIAL IV PRN (07:02)
[2020-06-12] MEDS ORDERED: SODIUM CHLORIDE 0.9% 1,000 ML IV PRN (07:02)
[2020-06-12 07:06] LABS: Band Neutrophils 4 % (0-10); Eosinophils 9 % (0-10); Lymphocytes 36 % (20-55); Nucleated Red Blood Cells 1 (0-5); Platelet Estimate Adequate; Segmented Neutrophils 41 % (50-85); Total Cells Counted 100
[2020-06-12 07:07] LABS: Anisocytosis 3+; Macrocytosis 1+; Poikilocytosis 2+; Sickle Cells 2+; Target Cells Few
[2020-06-12] MEDS ORDERED: HYDROmorphone PCA 30 MG/30 ML SYRINGE IV SCH (07:30)
[2020-06-12 07:53] LABS: Albumin 3.6 G/DL (3.4-5.0); Bilirubin,Total 3.5 MG/DL (0.2-1.0); Calcium 8.9 MG/DL (8.5-10.1); Osmolality,Calculated 277.4 MOS/KG (273-304); Total Protein 6.1 G/DL (6.4-8.3)
[2020-06-12] MEDS: diphenhydrAMINE CAP 25 MG CAPSULE PO PRN ×2 (08:59→23:05)
[2020-06-12] MEDS ORDERED: FOLIC ACID 1 MG TABLET PO SCH (09:00)
[2020-06-12] MEDS ORDERED: DOXYCYCLINE HYCLATE 100 MG CAPSULE PO SCH (09:00)
[2020-06-12] MEDS: cefTRIAXone 1,000 MG in SYRINGE 1 EACH IV SCH (10:21)
[2020-06-12] MEDS: FOLIC ACID 1 MG TABLET PO SCH (10:22)
[2020-06-13] MEDS: ALBUTEROL/IPRATROPIUM 3 ML NEB RESP TX SCH ×4 (01:50→19:21)
[2020-06-13] MEDS: SODIUM CHLORIDE 0.45% 1,000 ML IV SCH ×3 (04:20→23:56)
[2020-06-13] MEDS: diphenhydrAMINE CAP 25 MG CAPSULE PO PRN ×2 (04:21→17:57)
[2020-06-13 05:49] LABS: Hematocrit 20.8 VOL% (42.0-52.0); Hemoglobin 7.5 GM/DL (14.0-18.0)
[2020-06-13 05:50] LABS: Basophils # 0.2 10*3/uL (0.0-0.2); Basophils % 0.8 % (0.0-0.8); Eosinophils # 1.2 10*3/uL (0.0-0.87); Eosinophils % 5.9 % (0.00-10.9); Hematocrit 20.9 VOL% (42.0-52.0); Hemoglobin 7.5 GM/DL (14.0-18.0); Lymphocytes # 6.1 10*3/uL (1.4-4.0); Lymphocytes % 29.9 % (21.2-54.2); Mean Corpuscular HGB Conc 35.9 GM/DL (32-36); Mean Corpuscular Volume 89.7 FL (87-102); Mean Platelet Volume 12.3 FL (9.6-12.0); Monocytes % 10.3 % (1.7-12.7); NRBC # 0.13 10*3/uL; Neutrophils % 52.1 % (38.7-73.9); Platelet Count 146 T/CUMM (130-400); Red Blood Count 2.33 MC/CUMM (3.8-5.5); Red Cell Distribution Width 19.3 % (9.3-17.3); White Blood Count 20.5 T/CUMM (4-12)
[2020-06-13 06:11] LABS: Osmolality,Calculated 267.1 MOS/KG (273-304)
[2020-06-13 06:17] LABS: Eosinophils 4 % (0-10); Howell-Jolly Bodies Few; Hypochromasia 2+; Lymphocytes 21 % (20-55); Macrocytosis Slight; Nucleated Red Blood Cells 1 (0-5); Pappenheimer Bodies Few; Platelet Estimate Normal; Polychromasia Slight; Segmented Neutrophils 69 % (50-85); Sickle Cells 1+; Target Cells Few; Total Cells Counted 100
[2020-06-13 06:18] LABS: Elliptocytes Few
[2020-06-13] MEDS ORDERED: HYDROmorphone PCA 30 MG/30 ML SYRINGE IV SCH (07:30)
[2020-06-13] MEDS ORDERED: MAGNESIUM SULF RIDER 4 GM in PREMIX 1 EACH IV ONE (08:00)
[2020-06-13] MEDS: FOLIC ACID 1 MG TABLET PO SCH (10:04)
[2020-06-13] MEDS: cefTRIAXone 1,000 MG in SYRINGE 1 EACH IV SCH (10:20)
[2020-06-13] MEDS: ENOXAPARIN 40 MG/0.4 ML SYRINGE SUBCUT SCH (21:10)
[2020-06-14] MEDS: ALBUTEROL/IPRATROPIUM 3 ML NEB RESP TX SCH ×2 (02:20→07:38)
[2020-06-14 06:11] LABS: Basophils # 0.1 10*3/uL (0.0-0.2); Basophils % 0.7 % (0.0-0.8); Eosinophils # 1.2 10*3/uL (0.0-0.87); Eosinophils % 6.4 % (0.00-10.9); Hematocrit 20.7 VOL% (42.0-52.0); Hemoglobin 7.6 GM/DL (14.0-18.0); Immature Granulocytes % 0.7 %; Immature Granulocytes Absolute 0.12 #; Lymphocytes # 4.6 10*3/uL (1.4-4.0); Mean Corpuscular HGB Conc 36.7 GM/DL (32-36); Mean Corpuscular Volume 88.5 FL (87-102); Mean Platelet Volume 12.4 FL (9.6-12.0); NRBC # 0.11 10*3/uL; Neutrophils % 57.2 % (38.7-73.9); Platelet Count 150 T/CUMM (130-400); Red Blood Count 2.34 MC/CUMM (3.8-5.5); Red Cell Distribution Width 19.3 % (9.3-17.3); White Blood Count 18.3 T/CUMM (4-12)
[2020-06-14 06:19] LABS: Calcium 9.1 MG/DL (8.5-10.1); Osmolality,Calculated 272.8 MOS/KG (273-304)
[2020-06-14] MEDS ORDERED: INFLUENZA VIRUS VACCINE 0.5 ML SYRINGE IM ONE (09:00)
[2020-06-14] MEDS: FOLIC ACID 1 MG TABLET PO SCH (09:13)
[2020-06-14] MEDS: cefTRIAXone 1,000 MG in SYRINGE 1 EACH IV SCH (09:13)
[2020-06-14 11:46] VITALS: BP 126/58
== END 2020-06-14 13:10 | disposition home or self-care (01) | DRG 812 ==
LOC: N.ED 18:20 → N.EDINP 18:20 → N.3E 06-12 03:24 → SUATTDRO 06-12 13:54
PROVIDERS: ADMIT Internal Medicine; ATTEND Emergency Medicine

== ENCOUNTER 2020-06-30 08:33 | Observation (INO) ==
[2020-06-30] MEDS ORDERED: ONDANSETRON 4 MG/2 ML VIAL IV STA (09:04)
[2020-06-30] MEDS ORDERED: SODIUM CHLORIDE 0.9% 1,000 ML IV STA (09:04)
[2020-06-30] MEDS ORDERED: HYDROmorphone 2 MG/1 ML VIAL IV STA ×2 (09:04→12:08)
[2020-06-30 11:02] LABS: Basophils # 0.2 10*3/uL (0.0-0.2); Basophils % 0.7 % (0.0-0.8); Eosinophils # 2.1 10*3/uL (0.0-0.87); Eosinophils % 8.8 % (0.00-10.9); Hemoglobin 7.7 GM/DL (14.0-18.0); Immature Granulocytes % 1.8 %; Immature Granulocytes Absolute 0.42 #; Lymphocytes # 6.2 10*3/uL (1.4-4.0); Lymphocytes % 26.3 % (21.2-54.2); Mean Corpuscular Volume 93.6 FL (87-102); Mean Platelet Volume 11.2 FL (9.6-12.0); Monocytes % 10.6 % (1.7-12.7); Neutrophils % 51.8 % (38.7-73.9); Platelet Count 158 T/CUMM (130-400); Red Blood Count 2.35 MC/CUMM (3.8-5.5); Red Cell Distribution Width 22.7 % (9.3-17.3); White Blood Count 23.6 T/CUMM (4-12)
[2020-06-30 11:27] LABS: Anisocytosis 1+; Eosinophils 13 % (0-10); Hypochromasia 1+; Lymphocytes 27 % (20-55); Microcytosis 1+; Nucleated Red Blood Cells 1 (0-5); Segmented Neutrophils 56 % (50-85); Total Cells Counted 100
[2020-06-30 11:29] LABS: Polychromasia Few; Target Cells Few
[2020-06-30 11:31] LABS: Ovalocytes Few; Platelet Estimate Adequate; Sickle Cells 1+
[2020-06-30] MEDS ORDERED: NALOXONE 0.4 MG/ML VIAL IV PRN (12:31)
[2020-06-30] MEDS ORDERED: SODIUM CHLORIDE 0.9% 1,000 ML IV PRN (12:31)
[2020-06-30] MEDS ORDERED: DEXTROSE 50% 25 GM/50 ML VIAL IV PRN (12:32)
[2020-06-30] MEDS ORDERED: GLUCAGON 1 MG VIAL IM PRN (12:32)
[2020-06-30] MEDS ORDERED: HYDROmorphone PCA 30 MG/30 ML SYRINGE IV SCH (13:00)
[2020-06-30] MEDS: ENOXAPARIN 40 MG/0.4 ML SYRINGE SUBCUT SCH (20:37)
[2020-06-30] MEDS: diphenhydrAMINE 50 MG/1 ML VIAL IV PRN (22:09)
[2020-07-01] MEDS: diphenhydrAMINE 50 MG/1 ML VIAL IV PRN ×4 (03:32→23:30)
[2020-07-01 04:22] LABS: Basophils # 0.2 10*3/uL (0.0-0.2); Basophils % 0.9 % (0.0-0.8); Eosinophils # 2.1 10*3/uL (0.0-0.87); Eosinophils % 8.6 % (0.00-10.9); Hematocrit 19.8 VOL% (42.0-52.0); Immature Granulocytes Absolute 0.24 #; Lymphocytes # 10.1 10*3/uL (1.4-4.0); Lymphocytes % 42.2 % (21.2-54.2); Mean Corpuscular HGB Conc 34.8 GM/DL (32-36); Mean Corpuscular Volume 93.8 FL (87-102); Mean Platelet Volume 11.9 FL (9.6-12.0); Monocytes % 9.7 % (1.7-12.7); NRBC # 0.27 10*3/uL; Neutrophils % 37.6 % (38.7-73.9); Red Blood Count 2.11 MC/CUMM (3.8-5.5); Red Cell Distribution Width 21.9 % (9.3-17.3)
[2020-07-01 04:26] LABS: Hemoglobin 6.9 GM/DL (14.0-18.0); Platelet Count 129 T/CUMM (130-400)
[2020-07-01 04:49] LABS: Albumin 3.2 G/DL (3.4-5.0); Bilirubin,Total 3.8 MG/DL (0.2-1.0); Calcium 8.3 MG/DL (8.5-10.1); Osmolality,Calculated 270.8 MOS/KG (273-304)
[2020-07-01 05:09] LABS: Eosinophils 4 % (0-10); Howell-Jolly Bodies Few; Hypochromasia 2+; Lymphocytes 33 % (20-55); Microcytosis Slight; Nucleated Red Blood Cells 2 (0-5); Ovalocytes Few; Platelet Estimate Normal; Segmented Neutrophils 50 % (50-85); Sickle Cells 1+; Total Cells Counted 100
[2020-07-01 05:10] LABS: Target Cells Few
[2020-07-01] MEDS ORDERED: SODIUM CHLORIDE 0.9% 1,000 ML IV PRN (07:02)
[2020-07-01] MEDS ORDERED: ACETAMINOPHEN 325 MG TABLET PO ONE (07:04)
[2020-07-01] MEDS ORDERED: diphenhydrAMINE CAP 25 MG CAPSULE PO ONE (07:04)
[2020-07-01] MEDS ORDERED: MAGNESIUM SULF RIDER 4 GM in PREMIX 1 EACH IV ONE (07:12)
[2020-07-01] MEDS: amLODIPine 5 MG TABLET PO SCH (10:25)
[2020-07-01] MEDS: FOLIC ACID 1 MG TABLET PO SCH (10:27)
[2020-07-01] MEDS ORDERED: FUROSEMIDE 20 MG/2 ML VIAL IV ONE ×2 (10:34→22:00)
[2020-07-01 14:55] LABS: Bilirubin,Urine Negative (Negative); Blood, Urine Moderate mg/dL (Negative); Glucose,Urine (UA) Negative (Negative); Ketones,Urine Negative (Negative); Mucus,Urine Occasional /LPF (Occasional); Nitrite,Urine Negative (Negative); Protein,Urine 100 MG/DL; RBC,Urine 1 /HPF (0-4); Urine Appearance CLEAR (Clear); Urine Color Yellow (Yellow); Urine Specific Gravity 1.009 (1.001-1.035)
[2020-07-01] MEDS: cefTRIAXone 1,000 MG in SYRINGE 1 EACH IV SCH (15:29)
[2020-07-01] MEDS: AZITHROMYCIN 250 MG TABLET PO SCH (15:34)
[2020-07-01] MEDS: HYDROmorphone PCA 30 MG/30 ML SYRINGE IV SCH ×4 (16:48→20:36)
[2020-07-01] MEDS: ENOXAPARIN 40 MG/0.4 ML SYRINGE SUBCUT SCH (22:39)
[2020-07-02] MEDS: diphenhydrAMINE 50 MG/1 ML VIAL IV PRN (05:35)
[2020-07-02 05:46] LABS: Hematocrit 25.4 VOL% (42.0-52.0)
[2020-07-02 07:40] VITALS: BP 152/91
[2020-07-02] MEDS: amLODIPine 5 MG TABLET PO SCH (11:49)
[2020-07-02] MEDS: FOLIC ACID 1 MG TABLET PO SCH (11:49)
[2020-07-02] MEDS: AZITHROMYCIN 250 MG TABLET PO SCH (11:49)
[2020-07-02] MEDS: cefTRIAXone 1,000 MG in SYRINGE 1 EACH IV SCH (11:49)
[2020-07-02] MEDS: HYDROmorphone PCA 30 MG/30 ML SYRINGE IV SCH (12:13)
== END 2020-07-02 12:30 | disposition home or self-care (01) ==
LOC: N.ED 08:33 → N.EDINP 08:33 → SUATTDRO 12:32 → N.5E 14:42
PROVIDERS: ADMIT Internal Medicine; ATTEND Internal Medicine

== ENCOUNTER 2020-08-11 21:39 | Observation (INO) ==
[2020-08-11] MEDS ORDERED: fentaNYL 100 MCG/2 ML VIAL IV STA (23:17)
[2020-08-11] MEDS ORDERED: SODIUM CHLORIDE 0.9% 1,000 ML IV STA (23:17)
[2020-08-11] MEDS ORDERED: ONDANSETRON 4 MG/2 ML VIAL IV ONE (23:17)
[2020-08-11 23:52] LABS: Basophils # 0.1 10*3/uL (0.0-0.2); Basophils % 0.6 % (0.0-0.8); Eosinophils # 1.6 10*3/uL (0.0-0.87); Eosinophils % 7.6 % (0.00-10.9); Hematocrit 24.2 VOL% (42.0-52.0); Hemoglobin 7.8 GM/DL (14.0-18.0); Immature Granulocytes % 1.1 %; Immature Granulocytes Absolute 0.24 #; Lymphocytes # 7.6 10*3/uL (1.4-4.0); Lymphocytes % 35.5 % (21.2-54.2); Mean Corpuscular HGB Conc 32.2 GM/DL (32-36); Mean Corpuscular Volume 99.6 FL (87-102); Mean Platelet Volume 11.6 FL (9.6-12.0); Monocytes % 9.6 % (1.7-12.7); NRBC # 0.43 10*3/uL; Neutrophils % 45.6 % (38.7-73.9); Platelet Count 246 T/CUMM (130-400); Red Blood Count 2.43 MC/CUMM (3.8-5.5); White Blood Count 21.4 T/CUMM (4-12)
[2020-08-12 00:13] LABS: Albumin 3.5 G/DL (3.4-5.0); Bilirubin,Total 1.7 MG/DL (0.2-1.0); Osmolality,Calculated 281.3 MOS/KG (273-304); Potassium 4.3 MMOL/L (3.5-5.1); Total Protein 6.2 G/DL (6.4-8.3)
[2020-08-12] MEDS ORDERED: MEPERIDINE 50 MG/1 ML VIAL IV STA (00:45)
[2020-08-12] MEDS ORDERED: PROMETHAZINE 25 MG/1 ML VIAL IM PRN (01:08)
[2020-08-12] MEDS ORDERED: DEXTROSE 50% 25 GM/50 ML VIAL IV PRN (01:08)
[2020-08-12] MEDS ORDERED: hydrALAZINE 20 MG/1 ML VIAL IV PRN (01:08)
[2020-08-12] MEDS ORDERED: GLUCAGON 1 MG VIAL IM PRN (01:08)
[2020-08-12] MEDS ORDERED: NICOTINE 21 MG/24 HR PATCH TRANSDERM PRN (01:08)
[2020-08-12] MEDS ORDERED: ONDANSETRON 4 MG/2 ML VIAL IV PRN (01:08)
[2020-08-12] MEDS ORDERED: SODIUM CHLORIDE 0.9% 1,000 ML IV PRN (01:08)
[2020-08-12] MEDS ORDERED: ACETAMINOPHEN 325 MG TABLET PO PRN (01:08)
[2020-08-12 01:45] LABS: Bilirubin,Urine Negative (Negative); Blood, Urine Negative (Negative); Glucose,Urine (UA) Negative (Negative); Ketones,Urine Negative (Negative); Nitrite,Urine Negative (Negative); Protein,Urine 100 MG/DL; Urine Appearance Clear (Clear); Urine Color Yellow (Yellow); Urine Specific Gravity 1.005 (1.001-1.035); Urine Urobilinogen < 0.2 EU/DL (0.2-1.0)
[2020-08-12 01:46] LABS: Bacteria,Urine Few /HPF (Few); RBC,Urine 1 /HPF (0-4); Squamous Epithelial Cell,Urine Few /HPF (0-10); WBC,Urine 1 /HPF (0-6)
[2020-08-12 02:28] LABS: Barbiturates Screen,Urine Negative (Negative); Benzodiazepines Screen,Urine Negative (Negative); Cannabinoid Screen,Urine Positive (Negative); Opiate Screen,Urine Negative (Negative); Phencyclidine Screen,Urine Negative (Negative)
[2020-08-12] MEDS: SODIUM CHLORIDE 0.9% 1,000 ML IV SCH ×3 (03:00→21:21)
[2020-08-12 03:43] LABS: Hypochromasia 2+
[2020-08-12 03:44] LABS: Howell-Jolly Bodies 1+; Microcytosis 1+; Platelet Estimate Normal; Sickle Cells 1+; Target Cells Few
[2020-08-12] MEDS: HYDROmorphone 2 MG/1 ML VIAL IV PRN ×4 (08:29→21:20)
[2020-08-13] MEDS: HYDROmorphone 2 MG/1 ML VIAL IV PRN ×5 (01:36→22:47)
[2020-08-13] MEDS: SODIUM CHLORIDE 0.9% 1,000 ML IV SCH ×2 (05:51→17:15)
[2020-08-13 07:26] LABS: Basophils # 0.1 10*3/uL (0.0-0.2); Basophils % 0.8 % (0.0-0.8); Eosinophils # 1.3 10*3/uL (0.0-0.87); Eosinophils % 8.2 % (0.00-10.9); Hematocrit 31.1 VOL% (42.0-52.0); Immature Granulocytes % 0.7 %; Immature Granulocytes Absolute 0.11 #; Lymphocytes # 4.4 10*3/uL (1.4-4.0); Lymphocytes % 27.7 % (21.2-54.2); Mean Corpuscular HGB Conc 32.5 GM/DL (32-36); Mean Corpuscular Volume 94.8 FL (87-102); Mean Platelet Volume 10.9 FL (9.6-12.0); Monocytes % 9.7 % (1.7-12.7); NRBC # 0.21 10*3/uL; Neutrophils % 52.9 % (38.7-73.9); Platelet Count 218 T/CUMM (130-400); Red Cell Distribution Width 19.7 % (9.3-17.3); White Blood Count 15.9 T/CUMM (4-12)
[2020-08-13 07:27] LABS: Hemoglobin 10.1 GM/DL (14.0-18.0); Red Blood Count 3.28 MC/CUMM (3.8-5.5)
[2020-08-13 08:24] LABS: Eosinophils 10 % (0-10); Lymphocytes 28 % (20-55); Nucleated Red Blood Cells 2 (0-5); Segmented Neutrophils 55 % (50-85); Total Cells Counted 100
[2020-08-13 08:25] LABS: Hypochromasia 1+; Microcytosis 1+; Sickle Cells Few
[2020-08-13 08:26] LABS: Pappenheimer Bodies Few; Polychromasia Slight; Target Cells Slight
[2020-08-13 08:27] LABS: Ovalocytes Slight; Platelet Estimate Normal
[2020-08-14] MEDS: HYDROmorphone 2 MG/1 ML VIAL IV PRN ×2 (02:38→07:31)
[2020-08-14] MEDS: SODIUM CHLORIDE 0.9% 1,000 ML IV SCH ×3 (05:46→08:19)
[2020-08-14 06:15] LABS: Basophils # 0.1 10*3/uL (0.0-0.2); Eosinophils # 1.2 10*3/uL (0.0-0.87); Eosinophils % 8.4 % (0.00-10.9); Hematocrit 33.5 VOL% (42.0-52.0); Hemoglobin 10.5 GM/DL (14.0-18.0); Immature Granulocytes % 0.5 %; Immature Granulocytes Absolute 0.07 #; Lymphocytes # 4.8 10*3/uL (1.4-4.0); Lymphocytes % 33.3 % (21.2-54.2); Mean Corpuscular HGB Conc 31.3 GM/DL (32-36); Mean Corpuscular Volume 98.5 FL (87-102); Monocytes % 10.9 % (1.7-12.7); NRBC # 0.17 10*3/uL; Neutrophils % 45.9 % (38.7-73.9); Platelet Count 188 T/CUMM (130-400); Red Cell Distribution Width 19.5 % (9.3-17.3); White Blood Count 14.3 T/CUMM (4-12)
[2020-08-14 06:34] LABS: Elliptocytes Few; Howell-Jolly Bodies Few; Pappenheimer Bodies Few
[2020-08-14 06:35] LABS: Hypochromasia Slight; Macrocytosis Slight; Platelet Estimate Adequate; Polychromasia Slight; Sickle Cells Few
[2020-08-14 06:42] LABS: Albumin 3.1 G/DL (3.4-5.0); Bilirubin,Total 3.3 MG/DL (0.2-1.0); Calcium 8.6 MG/DL (8.5-10.1); Potassium 4.2 MMOL/L (3.5-5.1); Total Protein 6.1 G/DL (6.4-8.3)
[2020-08-14 07:24] VITALS: BP 141/73
== END 2020-08-14 11:02 | disposition home or self-care (01) ==
LOC: N.ED 21:39 → N.EDINP 21:39 → SUATTDRO 08-12 01:08 → N.5E 08-12 06:06
PROVIDERS: ADMIT Internal Medicine; ATTEND Emergency Medicine

== ENCOUNTER 2020-09-30 15:21 | Observation (INO) ==
[2020-09-30] MEDS ORDERED: HYDROmorphone 2 MG/1 ML VIAL IV STA ×2 (15:37→16:43)
[2020-09-30] MEDS ORDERED: SODIUM CHLORIDE 0.9% 1,000 ML IV STA (15:37)
[2020-09-30] MEDS ORDERED: ONDANSETRON 4 MG/2 ML VIAL IV ONE (15:37)
[2020-09-30 16:01] LABS: Basophils # 0.1 10*3/uL (0.0-0.2); Basophils % 0.5 % (0.0-0.8); Hematocrit 18.8 VOL% (42.0-52.0); Hemoglobin 6.7 GM/DL (14.0-18.0); Immature Granulocytes % 1.3 %; Immature Granulocytes Absolute 0.26 #; Lymphocytes # 6.4 10*3/uL (1.4-4.0); Mean Corpuscular HGB Conc 35.6 GM/DL (32-36); Mean Corpuscular Volume 89.5 FL (87-102); Mean Platelet Volume 11.8 FL (9.6-12.0); Monocytes % 8.7 % (1.7-12.7); NRBC # 0.44 10*3/uL; Neutrophils % 53.5 % (38.7-73.9); Platelet Count 182 T/CUMM (130-400); White Blood Count 20.7 T/CUMM (4-12)
[2020-09-30 16:15] LABS: Albumin 3.6 G/DL (3.4-5.0); Bilirubin,Total 3.7 MG/DL (0.2-1.0); Calcium 8.7 MG/DL (8.5-10.1); Osmolality,Calculated 282.5 MOS/KG (273-304); Potassium 4.5 MMOL/L (3.5-5.1); Total Protein 6.5 G/DL (5.0-7.5)
[2020-09-30 16:17] LABS: Bilirubin,Urine Negative (Negative); Blood, Urine Moderate mg/dL (Negative); Glucose,Urine (UA) Negative (Negative); Ketones,Urine Negative (Negative); Nitrite,Urine Negative (Negative); Protein,Urine 100 MG/DL; RBC,Urine 2 /HPF (0-4); Urine Appearance CLEAR (Clear); Urine Color Yellow (Yellow); Urine Specific Gravity 1.009 (1.001-1.035)
[2020-09-30 16:21] LABS: Barbiturates Screen,Urine Negative (Negative); Benzodiazepines Screen,Urine Negative (Negative); Cannabinoid Screen,Urine Positive (Negative); Opiate Screen,Urine Negative (Negative); Phencyclidine Screen,Urine Negative (Negative)
[2020-09-30] MEDS ORDERED: diphenhydrAMINE CAP 25 MG CAPSULE ONE (17:34)
[2020-09-30] MEDS ORDERED: diphenhydrAMINE CAP 25 MG CAPSULE PO STA (17:38)
[2020-09-30] MEDS ORDERED: LACTULOSE 20 GM/30 ML UDCUP PO PRN (17:52)
[2020-09-30] MEDS ORDERED: ONDANSETRON 4 MG/2 ML VIAL IV PRN (17:52)
[2020-09-30] MEDS ORDERED: GLUCAGON 1 MG VIAL IM PRN (17:52)
[2020-09-30] MEDS ORDERED: hydrALAZINE 20 MG/1 ML VIAL IV PRN (17:52)
[2020-09-30] MEDS ORDERED: DEXTROSE 50% 25 GM/50 ML VIAL IV PRN (17:52)
[2020-09-30] MEDS ORDERED: NICOTINE 21 MG/24 HR PATCH TRANSDERM PRN (17:52)
[2020-09-30] MEDS ORDERED: SODIUM CHLORIDE 0.45% 1,000 ML IV SCH (18:00)
[2020-09-30 18:05] LABS: Eosinophils 4 % (0-10); Lymphocytes 33 % (20-55); Nucleated Red Blood Cells 2 (0-5); Segmented Neutrophils 56 % (50-85); Total Cells Counted 100
[2020-09-30 18:06] LABS: Platelet Estimate Normal; Polychromasia 2+; Reactive Lymphocytes 1+
[2020-09-30 18:07] LABS: Hypochromasia 2+; Ovalocytes 1+; Sickle Cells 1+
[2020-09-30 18:08] LABS: Anisocytosis 2+; Poikilocytosis 2+
[2020-09-30] MEDS: HYDROmorphone 2 MG/1 ML VIAL IV PRN ×2 (20:00→23:01)
[2020-09-30] MEDS ORDERED: ENOXAPARIN 40 MG/0.4 ML SYRINGE SUBCUT SCH (21:00)
[2020-09-30] MEDS ORDERED: FOLIC ACID 1 MG TABLET PO SCH (21:00)
[2020-09-30] MEDS: DOCUSATE SODIUM 100 MG CAPSULE PO SCH (21:07)
[2020-09-30] MEDS ORDERED: SODIUM CHLORIDE 0.9% 1,000 ML IV PRN (22:12)
[2020-09-30] MEDS ORDERED: PROMETHAZINE INJ 25 MG in SODIUM CHLORIDE 0.9% 50 ML IV PRN (23:24)
[2020-10-01] MEDS: HYDROmorphone 2 MG/1 ML VIAL IV PRN ×3 (03:09→10:00)
[2020-10-01] MEDS ORDERED: diphenhydrAMINE CAP 50 MG CAPSULE PO PRN (03:26)
[2020-10-01 07:58] VITALS: BP 134/75
[2020-10-01 08:58] LABS: Basophils # 0.1 10*3/uL (0.0-0.2); Basophils % 0.5 % (0.0-0.8); Eosinophils # 0.7 10*3/uL (0.0-0.87); Eosinophils % 3.5 % (0.00-10.9); Hematocrit 21.3 VOL% (42.0-52.0); Hemoglobin 7.8 GM/DL (14.0-18.0); Immature Granulocytes % 0.9 %; Immature Granulocytes Absolute 0.18 #; Lymphocytes # 3.3 10*3/uL (1.4-4.0); Lymphocytes % 17.4 % (21.2-54.2); Mean Corpuscular HGB Conc 36.6 GM/DL (32-36); Mean Corpuscular Volume 86.6 FL (87-102); Mean Platelet Volume 11.9 FL (9.6-12.0); Monocytes % 8.9 % (1.7-12.7); NRBC # 0.19 10*3/uL; Neutrophils % 68.8 % (38.7-73.9); Platelet Count 157 T/CUMM (130-400); Red Blood Count 2.46 MC/CUMM (3.8-5.5); Red Cell Distribution Width 21.6 % (9.3-17.3); White Blood Count 19.2 T/CUMM (4-12)
[2020-10-01] MEDS ORDERED: amLODIPine 5 MG TABLET PO SCH (09:00)
[2020-10-01] MEDS ORDERED: PANTOPRAZOLE 40 MG TABLET PO SCH (09:00)
[2020-10-01] MEDS: DOCUSATE SODIUM 100 MG CAPSULE PO SCH (09:06)
[2020-10-01 09:22] LABS: Albumin 3.9 G/DL (3.4-5.0); Bilirubin,Total 5.1 MG/DL (0.2-1.0); Calcium 9.1 MG/DL (8.5-10.1); Osmolality,Calculated 273.8 MOS/KG (273-304); Potassium 4.4 MMOL/L (3.5-5.1); Total Protein 6.8 G/DL (5.0-7.5)
[2020-10-01 09:24] LABS: Platelet Estimate Normal
[2020-10-01 09:25] LABS: Anisocytosis 3+; Hypochromasia 1+; Macrocytosis 1+; Ovalocytes Few; Poikilocytosis 2+; Polychromasia Slight; Sickle Cells 2+
[2020-10-01 09:26] LABS: Vitamin B12 777 PG/ML (211-911)
[2020-10-01 09:36] LABS: % Iron Saturation 45.9 % (18-50); Ferritin 8834.1 ng/ml (26-388)
[2020-10-01 09:59] LABS: Sedimentation Rate-Westergren 15 MM/HR (0-15)
[2020-10-01] MEDS ORDERED: carvediloL 3.125 MG TABLET PO SCH (17:00)
[2020-10-02 11:25] LABS: Hemoglobin A1 (Alkaline) 36.6 % (96.5-98.5)
[2020-10-02 11:26] LABS: Hemoglobin S (Alkaline) 60.4 %
== END 2020-10-01 11:13 | disposition home or self-care (01) ==
LOC: N.ED 15:21 → N.EDINP 15:21 → N.4E 19:30
PROVIDERS: ADMIT Internal Medicine; ATTEND Internal Medicine

== ENCOUNTER 2020-10-11 16:46 | Inpatient (IN) ==
[2020-10-11] MEDS ORDERED: HYDROmorphone 2 MG/1 ML VIAL IV STA ×2 (18:15→19:32)
[2020-10-11] MEDS ORDERED: diphenhydrAMINE 50 MG/1 ML VIAL IV STA (18:15)
[2020-10-11] MEDS ORDERED: ONDANSETRON 4 MG/2 ML VIAL IV STA (18:15)
[2020-10-11] MEDS ORDERED: SODIUM CHLORIDE 0.9% 1,000 ML IV STA ×2 (18:15→18:16)
[2020-10-11] MEDS ORDERED: diphenhydrAMINE 50 MG/1 ML VIAL ONE (18:17)
[2020-10-11] MEDS ORDERED: ONDANSETRON 4 MG/2 ML VIAL ONE (18:17)
[2020-10-11 18:23] LABS: Basophils # 0.1 10*3/uL (0.0-0.2); Basophils % 0.4 % (0.0-0.8); Eosinophils # 1.2 10*3/uL (0.0-0.87); Eosinophils % 4.3 % (0.00-10.9); Hematocrit 25.1 VOL% (42.0-52.0); Hemoglobin 8.7 GM/DL (14.0-18.0); Immature Granulocytes % 1.5 %; Immature Granulocytes Absolute 0.42 #; Lymphocytes # 5.4 10*3/uL (1.4-4.0); Mean Corpuscular HGB Conc 34.7 GM/DL (32-36); Mean Corpuscular Volume 89.6 FL (87-102); Mean Platelet Volume 11.9 FL (9.6-12.0); Monocytes % 11.3 % (1.7-12.7); NRBC # 0.13 10*3/uL; Neutrophils % 63.5 % (38.7-73.9); Platelet Count 254 T/CUMM (130-400); Red Cell Distribution Width 20.8 % (9.3-17.3); White Blood Count 28.2 T/CUMM (4-12)
[2020-10-11 18:41] LABS: Albumin 3.4 G/DL (3.4-5.0); Bilirubin,Total 3.6 MG/DL (0.2-1.0); Calcium 8.6 MG/DL (8.5-10.1); Potassium 3.8 MMOL/L (3.5-5.1); Total Protein 6.7 G/DL (6.4-8.2)
[2020-10-11 18:55] LABS: Eosinophils 2 % (0-10); Lymphocytes 26 % (20-55); Nucleated Red Blood Cells 2 (0-5); Total Cells Counted 100
[2020-10-11 18:56] LABS: Segmented Neutrophils 67 % (50-85); Sickle Cells 2+
[2020-10-11 18:57] LABS: Polychromasia Few; Target Cells 1+
[2020-10-11 19:12] LABS: Howell-Jolly Bodies Few; Platelet Estimate Normal
[2020-10-11 19:20] LABS: Atypical Lymphocytes Few
[2020-10-11 19:39] LABS: Bilirubin,Urine Negative (Negative); Blood, Urine Moderate mg/dL (Negative); Glucose,Urine (UA) Negative (Negative); Ketones,Urine Negative (Negative); Nitrite,Urine Negative (Negative); Protein,Urine 100 MG/DL; RBC,Urine 1 /HPF (0-4); Urine Appearance CLEAR (Clear); Urine Color Yellow (Yellow); WBC,Urine 2 /HPF (0-6)
[2020-10-11] MEDS ORDERED: MAGNESIUM SULF RIDER 2 GM in PREMIX 1 EACH IV STA (19:41)
[2020-10-11 19:44] LABS: Barbiturates Screen,Urine Negative (Negative); Benzodiazepines Screen,Urine Negative (Negative); Cannabinoid Screen,Urine Positive (Negative); Opiate Screen,Urine Positive (Negative); Phencyclidine Screen,Urine Negative (Negative)
[2020-10-11] MEDS ORDERED: PIPERACILLIN/TAZOBACTAM 3,375 MG in SODIUM CHLORIDE 0.9% 100 ML IV STA (20:18)
[2020-10-11] MEDS ORDERED: DEXTROSE 50% 25 GM/50 ML VIAL IV PRN (20:21)
[2020-10-11] MEDS ORDERED: SODIUM CHLORIDE 0.9% 1,000 ML IV PRN (20:21)
[2020-10-11] MEDS ORDERED: ONDANSETRON 4 MG/2 ML VIAL IV PRN (20:21)
[2020-10-11] MEDS ORDERED: NALOXONE 0.4 MG/ML VIAL IV PRN (20:21)
[2020-10-11] MEDS ORDERED: GLUCAGON 1 MG VIAL IM PRN (20:21)
[2020-10-11] MEDS ORDERED: HYDROmorphone PCA 30 MG/30 ML SYRINGE IV SCH (20:30)
[2020-10-12] MEDS ORDERED: oxyCODONE IR 5 MG TABLET PO PRN (00:55)
[2020-10-12] MEDS: ENOXAPARIN 40 MG/0.4 ML SYRINGE SUBCUT SCH ×2 (01:11→21:19)
[2020-10-12] MEDS: SODIUM CHLORIDE 0.9% 1,000 ML IV SCH ×4 (02:10→23:26)
[2020-10-12] MEDS ORDERED: PIPERACILLIN/TAZOBACTAM 3,375 MG in SODIUM CHLORIDE 0.9% 100 ML IV ONE (02:30)
[2020-10-12] MEDS ORDERED: MAGNESIUM SULF RIDER 2 GM in PREMIX 1 EACH IV PRN (07:26)
[2020-10-12] MEDS ORDERED: MAGNESIUM SULF RIDER 4 GM in PREMIX 1 EACH IV PRN (07:26)
[2020-10-12 08:22] LABS: Basophils # 0.1 10*3/uL (0.0-0.2); Basophils % 0.3 % (0.0-0.8); Eosinophils % 3.4 % (0.00-10.9); Hematocrit 21.9 VOL% (42.0-52.0); Hemoglobin 7.5 GM/DL (14.0-18.0); Immature Granulocytes % 1.2 %; Immature Granulocytes Absolute 0.34 #; Lymphocytes # 6.5 10*3/uL (1.4-4.0); Lymphocytes % 22.7 % (21.2-54.2); Mean Corpuscular HGB Conc 34.2 GM/DL (32-36); Mean Corpuscular Volume 89.8 FL (87-102); Mean Platelet Volume 12.1 FL (9.6-12.0); Monocytes % 13.9 % (1.7-12.7); Neutrophils % 58.5 % (38.7-73.9); Platelet Count 235 T/CUMM (130-400); Red Blood Count 2.44 MC/CUMM (3.8-5.5); Red Cell Distribution Width 20.6 % (9.3-17.3); White Blood Count 28.4 T/CUMM (4-12)
[2020-10-12 08:50] LABS: Albumin 3.1 G/DL (3.4-5.0); Bilirubin,Total 4.3 MG/DL (0.2-1.0); Calcium 8.1 MG/DL (8.5-10.1); Osmolality,Calculated 260.5 MOS/KG (273-304); Potassium 3.8 MMOL/L (3.5-5.1); Total Protein 5.8 G/DL (6.4-8.2)
[2020-10-12 08:53] LABS: Eosinophils 3 % (0-10); Hypochromasia Slight; Lymphocytes 16 % (20-55); Microcytosis 1+; Nucleated Red Blood Cells 1 (0-5); Segmented Neutrophils 70 % (50-85); Total Cells Counted 100
[2020-10-12 08:54] LABS: Anisocytosis 1+; Ovalocytes Slight; Polychromasia Slight; Target Cells Slight
[2020-10-12 08:55] LABS: Pappenheimer Bodies Few; Platelet Estimate Normal
[2020-10-12 08:56] LABS: Sickle Cells Few
[2020-10-12] MEDS: diphenhydrAMINE CAP 25 MG CAPSULE PO PRN (18:14)
[2020-10-12] MEDS: FOLIC ACID 1 MG TABLET PO SCH (21:19)
[2020-10-12] MEDS: HYDROmorphone PCA 30 MG/30 ML SYRINGE IV SCH (21:33)
[2020-10-13 04:17] LABS: Basophils # 0.1 10*3/uL (0.0-0.2); Basophils % 0.3 % (0.0-0.8); Eosinophils % 3.9 % (0.00-10.9); Hematocrit 19.2 VOL% (42.0-52.0); Hemoglobin 6.9 GM/DL (14.0-18.0); Immature Granulocytes % 0.9 %; Immature Granulocytes Absolute 0.24 #; Lymphocytes # 6.9 10*3/uL (1.4-4.0); Lymphocytes % 25.8 % (21.2-54.2); Mean Corpuscular HGB Conc 35.9 GM/DL (32-36); Mean Corpuscular Volume 87.3 FL (87-102); Monocytes % 12.6 % (1.7-12.7); NRBC # 0.07 10*3/uL; Neutrophils % 56.5 % (38.7-73.9); Platelet Count 204 T/CUMM (130-400); Red Cell Distribution Width 20.4 % (9.3-17.3); White Blood Count 26.5 T/CUMM (4-12)
[2020-10-13 04:32] LABS: Albumin 2.8 G/DL (3.4-5.0); Bilirubin,Total 4.5 MG/DL (0.2-1.0); Calcium 8.2 MG/DL (8.5-10.1); Osmolality,Calculated 263.4 MOS/KG (273-304); Potassium 3.7 MMOL/L (3.5-5.1); Total Protein 5.7 G/DL (6.4-8.2)
[2020-10-13 04:58] LABS: Anisocytosis 1+; Band Neutrophils 1 % (0-10); Eosinophils 1 % (0-10); Hypochromasia 1+; Lymphocytes 28 % (20-55); Microcytosis 1+; Segmented Neutrophils 60 % (50-85); Total Cells Counted 100
[2020-10-13 04:59] LABS: Pappenheimer Bodies Few; Polychromasia Slight; Sickle Cells Few; Target Cells Slight
[2020-10-13 05:00] LABS: Ovalocytes Few; Platelet Estimate Normal
[2020-10-13] MEDS ORDERED: SODIUM CHLORIDE 0.9% 1,000 ML IV PRN (10:25)
[2020-10-13] MEDS: amLODIPine 5 MG TABLET PO SCH (12:20)
[2020-10-13] MEDS: SODIUM CHLORIDE 0.9% 1,000 ML IV SCH (12:33)
[2020-10-13 13:35] LABS: Bilirubin,Urine Negative (Negative); Blood, Urine Moderate mg/dL (Negative); Glucose,Urine (UA) Negative (Negative); Ketones,Urine Negative (Negative); Mucus,Urine Occasional /LPF (Occasional); Nitrite,Urine Negative (Negative); Protein,Urine 100 MG/DL; RBC,Urine 3 /HPF (0-4); Urine Appearance CLEAR (Clear); Urine Color Yellow (Yellow); Urine Specific Gravity 1.005 (1.001-1.035); WBC,Urine 1 /HPF (0-6)
[2020-10-13] MEDS: diphenhydrAMINE CAP 25 MG CAPSULE PO PRN (18:14)
[2020-10-13] MEDS: FOLIC ACID 1 MG TABLET PO SCH (20:54)
[2020-10-13] MEDS: ENOXAPARIN 40 MG/0.4 ML SYRINGE SUBCUT SCH (20:58)
[2020-10-13] MEDS ORDERED: hydrALAZINE 20 MG/1 ML VIAL IV PRN (21:06)
[2020-10-14] MEDS: SODIUM CHLORIDE 0.9% 1,000 ML IV SCH ×3 (02:58→23:18)
[2020-10-14 06:33] LABS: Basophils # 0.1 10*3/uL (0.0-0.2); Basophils % 0.3 % (0.0-0.8); Eosinophils # 0.8 10*3/uL (0.0-0.87); Eosinophils % 3.3 % (0.00-10.9); Hematocrit 22.8 VOL% (42.0-52.0); Hemoglobin 8.1 GM/DL (14.0-18.0); Immature Granulocytes Absolute 0.23 #; Lymphocytes # 4.6 10*3/uL (1.4-4.0); Lymphocytes % 19.2 % (21.2-54.2); Mean Corpuscular HGB Conc 35.5 GM/DL (32-36); Mean Platelet Volume 11.4 FL (9.6-12.0); Monocytes % 10.1 % (1.7-12.7); NRBC # 0.07 10*3/uL; Neutrophils % 66.1 % (38.7-73.9); Platelet Count 230 T/CUMM (130-400); Red Blood Count 2.62 MC/CUMM (3.8-5.5); Red Cell Distribution Width 19.4 % (9.3-17.3); White Blood Count 23.8 T/CUMM (4-12)
[2020-10-14 06:49] LABS: Albumin 2.8 G/DL (3.4-5.0); Bilirubin,Total 5.1 MG/DL (0.2-1.0); Calcium 8.6 MG/DL (8.5-10.1); Osmolality,Calculated 266.1 MOS/KG (273-304); Potassium 3.9 MMOL/L (3.5-5.1); Total Protein 5.8 G/DL (6.4-8.2)
[2020-10-14] MEDS: HYDROmorphone PCA 30 MG/30 ML SYRINGE IV SCH (08:02)
[2020-10-14 08:25] LABS: Eosinophils 3 % (0-10); Lymphocytes 12 % (20-55); Segmented Neutrophils 77 % (50-85); Tear Drop Cells Slight; Total Cells Counted 100
[2020-10-14 08:26] LABS: Platelet Estimate Normal; Target Cells Few
[2020-10-14] MEDS: amLODIPine 5 MG TABLET PO SCH (08:40)
[2020-10-14] MEDS: oxyCODONE IR 5 MG TABLET PO PRN ×4 (08:40→20:38)
[2020-10-14] MEDS: amLODIPine 10 MG TABLET PO SCH (09:52)
[2020-10-14] MEDS: FOLIC ACID 1 MG TABLET PO SCH (20:38)
[2020-10-14] MEDS: ENOXAPARIN 40 MG/0.4 ML SYRINGE SUBCUT SCH (22:30)
[2020-10-15 05:55] LABS: Basophils # 0.1 10*3/uL (0.0-0.2); Basophils % 0.5 % (0.0-0.8); Eosinophils % 4.6 % (0.00-10.9); Hematocrit 23.3 VOL% (42.0-52.0); Hemoglobin 8.3 GM/DL (14.0-18.0); Immature Granulocytes Absolute 0.22 #; Lymphocytes # 4.6 10*3/uL (1.4-4.0); Lymphocytes % 21.1 % (21.2-54.2); Mean Corpuscular HGB Conc 35.6 GM/DL (32-36); Mean Corpuscular Volume 86.9 FL (87-102); Mean Platelet Volume 12.1 FL (9.6-12.0); Monocytes % 10.2 % (1.7-12.7); NRBC # 0.06 10*3/uL; Neutrophils % 62.6 % (38.7-73.9); Platelet Count 257 T/CUMM (130-400); Red Blood Count 2.68 MC/CUMM (3.8-5.5); Red Cell Distribution Width 19.7 % (9.3-17.3); White Blood Count 21.7 T/CUMM (4-12)
[2020-10-15 06:36] LABS: Eosinophils 7 % (0-10); Lymphocytes 9 % (20-55); Segmented Neutrophils 81 % (50-85); Total Cells Counted 100
[2020-10-15 06:37] LABS: Giant Platelets Few
[2020-10-15 06:38] LABS: Platelet Estimate Normal; Sickle Cells Few; Stomatocytes Slight
[2020-10-15 06:43] LABS: Albumin 2.8 G/DL (3.4-5.0); Bilirubin,Total 5.5 MG/DL (0.2-1.0); Calcium 8.5 MG/DL (8.5-10.1); Osmolality,Calculated 271.7 MOS/KG (273-304); Potassium 3.7 MMOL/L (3.5-5.1); Total Protein 5.9 G/DL (6.4-8.2)
[2020-10-15] MEDS: oxyCODONE IR 5 MG TABLET PO PRN (09:02)
[2020-10-15] MEDS: amLODIPine 10 MG TABLET PO SCH (09:02)
[2020-10-15 11:45] VITALS: BP 138/80
== END 2020-10-15 12:11 | disposition home or self-care (01) | DRG 812 ==
LOC: N.EDINP 16:46 → N.ED 16:46 → N.EDINP 10-12 00:20 → N.3E 10-12 00:53
PROVIDERS: ADMIT Internal Medicine; ATTEND Internal Medicine

== ENCOUNTER 2020-11-01 17:55 | Observation (INO) ==
[2020-11-01] MEDS ORDERED: SODIUM CHLORIDE 0.9% 1,000 ML IV STA (21:51)
[2020-11-01 22:10] LABS: Basophils # 0.1 10*3/uL (0.0-0.2); Basophils % 0.5 % (0.0-0.8); Eosinophils # 1.8 10*3/uL (0.0-0.87); Eosinophils % 7.7 % (0.00-10.9); Hematocrit 22.5 VOL% (42.0-52.0); Hemoglobin 7.7 GM/DL (14.0-18.0); Immature Granulocytes Absolute 0.25 #; Lymphocytes # 8.3 10*3/uL (1.4-4.0); Lymphocytes % 34.8 % (21.2-54.2); Mean Corpuscular HGB Conc 34.2 GM/DL (32-36); Mean Corpuscular Volume 95.7 FL (87-102); Mean Platelet Volume 11.5 FL (9.6-12.0); Monocytes % 8.1 % (1.7-12.7); NRBC # 0.13 10*3/uL; Neutrophils % 47.9 % (38.7-73.9); Platelet Count 157 T/CUMM (130-400); Red Blood Count 2.35 MC/CUMM (3.8-5.5); Red Cell Distribution Width 21.6 % (9.3-17.3); White Blood Count 23.8 T/CUMM (4-12)
[2020-11-01 22:37] LABS: Albumin 3.3 G/DL (3.4-5.0); Bilirubin,Total 2.6 MG/DL (0.2-1.0); Calcium 8.6 MG/DL (8.5-10.1); Osmolality,Calculated 284.8 MOS/KG (273-304); Potassium 4.2 MMOL/L (3.5-5.1); Total Protein 5.8 G/DL (6.4-8.2)
[2020-11-01] MEDS ORDERED: ONDANSETRON 4 MG/2 ML VIAL IV ONE (22:38)
[2020-11-01] MEDS ORDERED: HYDROmorphone 2 MG/1 ML VIAL IV STA (22:38)
[2020-11-01 22:51] LABS: Eosinophils 7 % (0-10); Lymphocytes 28 % (20-55); Segmented Neutrophils 57 % (50-85); Total Cells Counted 100
[2020-11-01 22:53] LABS: Anisocytosis 1+; Atypical Lymphocytes Few; Hypochromasia 1+; Macrocytosis 1+; Microcytosis Slight; Sickle Cells 1+
[2020-11-01 22:54] LABS: Platelet Estimate Adequate; Polychromasia 1+
[2020-11-02] MEDS ORDERED: HYDROmorphone 2 MG/1 ML VIAL IV PRN (00:13)
[2020-11-02] MEDS ORDERED: NICOTINE 21 MG/24 HR PATCH TRANSDERM PRN (00:14)
[2020-11-02] MEDS ORDERED: ACETAMINOPHEN 325 MG TABLET PO PRN (00:14)
[2020-11-02] MEDS ORDERED: GLUCAGON 1 MG VIAL IM PRN (00:14)
[2020-11-02] MEDS ORDERED: hydrALAZINE 20 MG/1 ML VIAL IV PRN (00:14)
[2020-11-02] MEDS ORDERED: PROMETHAZINE 25 MG TABLET PO PRN (00:14)
[2020-11-02] MEDS ORDERED: ZALEPLON 5 MG CAPSULE PO PRN (00:14)
[2020-11-02] MEDS ORDERED: DEXTROSE 50% 25 GM/50 ML VIAL IV PRN (00:14)
[2020-11-02] MEDS ORDERED: guaiFENesin/DM ER 600-30 MG TABLET PO PRN (00:14)
[2020-11-02] MEDS ORDERED: diphenhydrAMINE CAP 25 MG CAPSULE PO PRN (00:14)
[2020-11-02] MEDS ORDERED: PROMETHAZINE 25 MG/1 ML VIAL IM PRN (00:14)
[2020-11-02] MEDS ORDERED: ONDANSETRON 4 MG/2 ML VIAL IV PRN (00:14)
[2020-11-02] MEDS ORDERED: SIMETHICONE CHEW 125 MG TABLET PO PRN (00:14)
[2020-11-02] MEDS ORDERED: ALBUTEROL 2.5 MG/3 ML NEB RESP TX PRN (00:14)
[2020-11-02] MEDS ORDERED: SODIUM CHLORIDE 0.9% 1,000 ML IV PRN (00:18)
[2020-11-02] MEDS: SODIUM CHLORIDE 0.9% 1,000 ML IV SCH ×2 (01:45→18:30)
[2020-11-02] MEDS: HYDROmorphone 2 MG/1 ML VIAL IV PRN ×6 (04:52→20:59)
[2020-11-02] MEDS: BISACODYL 5 MG TABLET PO SCH (08:04)
[2020-11-02] MEDS: PANTOPRAZOLE 40 MG TABLET PO SCH (08:05)
[2020-11-02] MEDS: NICOTINE 21 MG/24 HR PATCH TRANSDERM SCH (08:40)
[2020-11-02] MEDS: DOCUSATE SODIUM 100 MG CAPSULE PO SCH ×2 (08:40→21:00)
[2020-11-02 10:55] LABS: Bilirubin,Urine Negative (Negative); Blood, Urine Moderate mg/dL (Negative); Glucose,Urine (UA) Negative (Negative); Granular Casts,Urine 1 /LPF (0-1); Ketones,Urine Negative (Negative); Mucus,Urine Occasional /LPF (Occasional); Nitrite,Urine Negative (Negative); Protein,Urine 100 MG/DL; RBC,Urine <1 /HPF (0-4); Urine Appearance CLEAR (Clear); Urine Color Yellow (Yellow); Urine Specific Gravity 1.009 (1.001-1.035); WBC,Urine 1 /HPF (0-6)
[2020-11-02 11:01] LABS: Barbiturates Screen,Urine Negative (Negative); Benzodiazepines Screen,Urine Negative (Negative); Cannabinoid Screen,Urine Positive (Negative); Opiate Screen,Urine Positive (Negative); Phencyclidine Screen,Urine Negative (Negative)
[2020-11-02 11:37] LABS: Basophils # 0.2 10*3/uL (0.0-0.2); Basophils % 0.7 % (0.0-0.8); Eosinophils # 1.8 10*3/uL (0.0-0.87); Eosinophils % 8.6 % (0.00-10.9); Hematocrit 25.2 VOL% (42.0-52.0); Hemoglobin 8.6 GM/DL (14.0-18.0); Immature Granulocytes % 1.2 %; Immature Granulocytes Absolute 0.24 #; Lymphocytes # 6.9 10*3/uL (1.4-4.0); Lymphocytes % 33.3 % (21.2-54.2); Mean Corpuscular HGB Conc 34.1 GM/DL (32-36); Mean Corpuscular Volume 95.5 FL (87-102); Mean Platelet Volume 12.8 FL (9.6-12.0); Monocytes % 7.8 % (1.7-12.7); NRBC # 0.14 10*3/uL; Neutrophils % 48.4 % (38.7-73.9); Platelet Count 110 T/CUMM (130-400); Red Blood Count 2.64 MC/CUMM (3.8-5.5); Red Cell Distribution Width 21.3 % (9.3-17.3); White Blood Count 20.8 T/CUMM (4-12)
[2020-11-02 11:47] LABS: Calcium 8.4 MG/DL (8.5-10.1); Osmolality,Calculated 266.2 MOS/KG (273-304); Potassium 4.6 MMOL/L (3.5-5.1)
[2020-11-02 14:20] LABS: Band Neutrophils 1 % (0-10); Eosinophils 2 % (0-10); Lymphocytes 40 % (20-55); Segmented Neutrophils 55 % (50-85); Total Cells Counted 100
[2020-11-02 14:22] LABS: Atypical Lymphocytes Few
[2020-11-02 14:23] LABS: Microcytosis 1+; Ovalocytes Few; Polychromasia Few; Sickle Cells Few; Target Cells Few
[2020-11-02 14:24] LABS: Burr Cells Few
[2020-11-02 14:25] LABS: Hypochromasia Slight; Platelet Estimate Normal
[2020-11-03] MEDS: SODIUM CHLORIDE 0.9% 1,000 ML IV SCH
[2020-11-03] MEDS: HYDROmorphone 2 MG/1 ML VIAL IV PRN ×3 (00:59→08:22)
[2020-11-03 05:28] LABS: Basophils # 0.1 10*3/uL (0.0-0.2); Basophils % 0.6 % (0.0-0.8); Eosinophils # 1.5 10*3/uL (0.0-0.87); Hematocrit 25.6 VOL% (42.0-52.0); Hemoglobin 8.6 GM/DL (14.0-18.0); Immature Granulocytes % 0.9 %; Immature Granulocytes Absolute 0.19 #; Lymphocytes # 6.7 10*3/uL (1.4-4.0); Lymphocytes % 30.6 % (21.2-54.2); Mean Corpuscular HGB Conc 33.6 GM/DL (32-36); Mean Corpuscular Volume 94.8 FL (87-102); Mean Platelet Volume 12.6 FL (9.6-12.0); Monocytes % 7.3 % (1.7-12.7); NRBC # 0.14 10*3/uL; Neutrophils % 53.6 % (38.7-73.9); Platelet Count 145 T/CUMM (130-400); Red Cell Distribution Width 21.2 % (9.3-17.3); White Blood Count 21.9 T/CUMM (4-12)
[2020-11-03 05:44] LABS: Elliptocytes Few; Howell-Jolly Bodies Few; Hypochromasia 1+; Macrocytosis Slight; Pappenheimer Bodies Few; Polychromasia Slight
[2020-11-03 05:45] LABS: Platelet Estimate Adequate; Sickle Cells Few
[2020-11-03 06:12] LABS: Calcium 8.8 MG/DL (8.5-10.1); Osmolality,Calculated 274.7 MOS/KG (273-304); Potassium 4.3 MMOL/L (3.5-5.1)
[2020-11-03 08:33] VITALS: BP 150/89
[2020-11-03] MEDS: BISACODYL 5 MG TABLET PO SCH (09:39)
[2020-11-03] MEDS: NICOTINE 21 MG/24 HR PATCH TRANSDERM SCH (09:39)
[2020-11-03] MEDS: PANTOPRAZOLE 40 MG TABLET PO SCH (09:40)
[2020-11-03] MEDS: DOCUSATE SODIUM 100 MG CAPSULE PO SCH (09:40)
== END 2020-11-03 10:27 | disposition home or self-care (01) ==
LOC: N.EDINP 17:55 → N.ED 17:55 → N.4E 11-02 01:23
PROVIDERS: ADMIT Hospitalist; ATTEND Hospitalist

== ENCOUNTER 2020-12-05 19:27 | Inpatient (IN) ==
[2020-12-05] MEDS ORDERED: SODIUM CHLORIDE 0.9% 1,000 ML IV STA (21:47)
[2020-12-05] MEDS ORDERED: ONDANSETRON 4 MG/2 ML VIAL IV STA (21:47)
[2020-12-05] MEDS ORDERED: HYDROmorphone 2 MG/1 ML VIAL IV STA (21:47)
[2020-12-05 22:17] LABS: Basophils # 0.1 10*3/uL (0.0-0.2); Basophils % 0.5 % (0.0-0.8); Eosinophils # 1.3 10*3/uL (0.0-0.87); Eosinophils % 4.6 % (0.00-10.9); Hematocrit 21.5 VOL% (42.0-52.0); Hemoglobin 7.5 GM/DL (14.0-18.0); Immature Granulocytes % 0.8 %; Immature Granulocytes Absolute 0.23 #; Lymphocytes # 8.1 10*3/uL (1.4-4.0); Lymphocytes % 27.7 % (21.2-54.2); Mean Corpuscular HGB Conc 34.9 GM/DL (32-36); Mean Corpuscular Volume 93.1 FL (87-102); Monocytes % 8.3 % (1.7-12.7); NRBC # 0.21 10*3/uL; Neutrophils % 58.1 % (38.7-73.9); Platelet Count 195 T/CUMM (130-400); Red Blood Count 2.31 MC/CUMM (3.8-5.5); White Blood Count 29.2 T/CUMM (4-12)
[2020-12-05 22:37] LABS: Albumin 3.8 G/DL (3.4-5.0); Bilirubin,Total 2.8 MG/DL (0.2-1.0); Osmolality,Calculated 284.1 MOS/KG (273-304); Potassium 4.6 MMOL/L (3.5-5.1); Total Protein 6.8 G/DL (6.4-8.2)
[2020-12-05 23:36] LABS: Bilirubin,Urine Negative (Negative); Blood, Urine Moderate mg/dL (Negative); Glucose,Urine (UA) Negative (Negative); Hyaline Casts,Urine 7 /LPF (0-3); Ketones,Urine Negative (Negative); Mucus,Urine Occasional /LPF (Occasional); Nitrite,Urine Negative (Negative); Protein,Urine 100 MG/DL; RBC,Urine 6 /HPF (0-4); Urine Appearance CLEAR (Clear); Urine Color Yellow (Yellow); Urine Specific Gravity 1.009 (1.001-1.035); Urine Urobilinogen < 2.0 EU/DL (0.2-1.0)
[2020-12-05 23:52] LABS: Barbiturates Screen,Urine Negative (Negative); Benzodiazepines Screen,Urine Negative (Negative); Cannabinoid Screen,Urine Positive (Negative); Opiate Screen,Urine Negative (Negative); Phencyclidine Screen,Urine Negative (Negative)
[2020-12-06] MEDS ORDERED: SODIUM CHLORIDE 0.9% 1,000 ML IV PRN (00:17)
[2020-12-06] MEDS ORDERED: NALOXONE 0.4 MG/ML VIAL IV PRN (00:17)
[2020-12-06] MEDS ORDERED: diphenhydrAMINE CAP 25 MG CAPSULE PO PRN (00:18)
[2020-12-06] MEDS ORDERED: DEXTROSE 50% 25 GM/50 ML VIAL IV PRN (00:20)
[2020-12-06] MEDS ORDERED: ACETAMINOPHEN 325 MG TABLET PO PRN (00:20)
[2020-12-06] MEDS ORDERED: ONDANSETRON 4 MG/2 ML VIAL IV PRN (00:20)
[2020-12-06] MEDS ORDERED: GLUCAGON 1 MG VIAL IM PRN (00:20)
[2020-12-06] MEDS ORDERED: DOCUSATE SODIUM 100 MG CAPSULE PO PRN (00:20)
[2020-12-06] MEDS ORDERED: HYDROmorphone PCA 30 MG/30 ML SYRINGE IV SCH (00:30)
[2020-12-06] MEDS: SODIUM CHLORIDE 0.9% 1,000 ML IV SCH ×2 (01:00→08:19)
[2020-12-06] MEDS ORDERED: ENOXAPARIN 40 MG/0.4 ML SYRINGE SUBCUT SCH (08:00)
[2020-12-06] MEDS ORDERED: diphenhydrAMINE 50 MG/1 ML VIAL IV ONE (08:52)
[2020-12-06] MEDS ORDERED: amLODIPine 10 MG TABLET PO SCH (09:00)
[2020-12-06 12:19] VITALS: BP 137/72
[2020-12-06] MEDS ORDERED: FOLIC ACID 1 MG TABLET PO SCH (21:00)
[2020-12-06] MEDS ORDERED: DEFERASIROX 360 MG PO SCH (21:00)
[2020-12-07] MEDS ORDERED: HYDROmorphone PCA 30 MG/30 ML SYRINGE IV SCH (00:30)
[2020-12-08] MEDS ORDERED: HYDROmorphone 2 MG TABLET PO PRN (00:17)
== END 2020-12-06 13:47 | disposition home or self-care (01) | DRG 812 ==
LOC: N.ED 19:27 → N.EDINP 23:05 → N.TELEN 12-06 01:01
PROVIDERS: ADMIT Internal Medicine; ATTEND Internal Medicine

== ENCOUNTER 2020-12-20 16:03 | Observation (INO) ==
[2020-12-20] MEDS ORDERED: SODIUM CHLORIDE 0.9% 1,000 ML IV STA (17:46)
[2020-12-20] MEDS ORDERED: HYDROmorphone 2 MG/1 ML VIAL IV STA ×2 (17:48→20:20)
[2020-12-20 20:07] LABS: Basophils # 0.2 10*3/uL (0.0-0.2); Basophils % 0.7 % (0.0-0.8); Eosinophils # 1.5 10*3/uL (0.0-0.87); Hemoglobin 7.6 GM/DL (14.0-18.0); Immature Granulocytes % 0.8 %; Lymphocytes # 8.5 10*3/uL (1.4-4.0); Lymphocytes % 34.7 % (21.2-54.2); Mean Corpuscular HGB Conc 34.5 GM/DL (32-36); Mean Corpuscular Volume 94.4 FL (87-102); Mean Platelet Volume 12.1 FL (9.6-12.0); NRBC # 0.13 10*3/uL; Neutrophils % 47.8 % (38.7-73.9); Platelet Count 170 T/CUMM (130-400); Red Blood Count 2.33 MC/CUMM (3.8-5.5); Red Cell Distribution Width 20.1 % (9.3-17.3); White Blood Count 24.6 T/CUMM (4-12)
[2020-12-20 20:32] LABS: Albumin 3.7 G/DL (3.4-5.0); Bilirubin,Total 3.1 MG/DL (0.2-1.0); Calcium 8.2 MG/DL (8.5-10.1); Osmolality,Calculated 277.5 MOS/KG (273-304); Total Protein 6.7 G/DL (6.4-8.2)
[2020-12-20 20:41] LABS: Anisocytosis 1+; Eosinophils 12 % (0-10); Hypochromasia 1+; Lymphocytes 23 % (20-55); Poikilocytosis 1+; Segmented Neutrophils 53 % (50-85); Target Cells Few; Total Cells Counted 100
[2020-12-20 20:42] LABS: Platelet Estimate Adequate; Polychromasia 1+; Sickle Cells 2+
[2020-12-20] MEDS ORDERED: FOLIC ACID 1 MG TABLET PO SCH (21:00)
[2020-12-20] MEDS ORDERED: DEFERASIROX 360 MG PO SCH (21:00)
[2020-12-20] MEDS ORDERED: diphenhydrAMINE CAP 50 MG CAPSULE PO STA (21:17)
[2020-12-20] MEDS ORDERED: diphenhydrAMINE CAP 25 MG CAPSULE ONE (21:19)
[2020-12-20] MEDS ORDERED: diphenhydrAMINE 50 MG/1 ML VIAL ONE (21:22)
[2020-12-20] MEDS ORDERED: diphenhydrAMINE 50 MG/1 ML VIAL IV STA (21:26)
[2020-12-20] MEDS ORDERED: SODIUM CHLORIDE 0.9% 1,000 ML IV PRN (21:46)
[2020-12-20] MEDS ORDERED: NALOXONE 0.4 MG/ML VIAL IV PRN (21:46)
[2020-12-20] MEDS ORDERED: HYDROmorphone PCA 30 MG/30 ML SYRINGE IV SCH (22:00)
[2020-12-20] MEDS ORDERED: GLUCAGON 1 MG VIAL IM PRN (22:17)
[2020-12-20] MEDS ORDERED: DEXTROSE 50% 25 GM/50 ML VIAL IV PRN (22:17)
[2020-12-20] MEDS ORDERED: DOCUSATE SODIUM 100 MG CAPSULE PO PRN (22:18)
[2020-12-20] MEDS ORDERED: ONDANSETRON 4 MG/2 ML VIAL IV PRN (22:18)
[2020-12-20] MEDS ORDERED: ACETAMINOPHEN 325 MG TABLET PO PRN (22:18)
[2020-12-20] MEDS ORDERED: SODIUM CHLORIDE 0.9% 1,000 ML IV SCH (22:30)
[2020-12-21] MEDS: diphenhydrAMINE CAP 25 MG CAPSULE PO PRN ×2 (00:53→07:05)
[2020-12-21 07:16] LABS: Basophils # 0.2 10*3/uL (0.0-0.2); Basophils % 0.7 % (0.0-0.8); Eosinophils # 1.6 10*3/uL (0.0-0.87); Immature Granulocytes % 0.6 %; Immature Granulocytes Absolute 0.14 #; Lymphocytes % 38.9 % (21.2-54.2); Mean Corpuscular HGB Conc 34.1 GM/DL (32-36); Mean Corpuscular Volume 92.5 FL (87-102); Mean Platelet Volume 12.2 FL (9.6-12.0); Monocytes % 7.8 % (1.7-12.7); NRBC # 0.09 10*3/uL; Platelet Count 164 T/CUMM (130-400); Red Cell Distribution Width 18.9 % (9.3-17.3)
[2020-12-21 07:18] LABS: Hemoglobin 9.2 GM/DL (14.0-18.0); Red Blood Count 2.92 MC/CUMM (3.8-5.5)
[2020-12-21 07:41] LABS: Albumin 3.4 G/DL (3.4-5.0); Bilirubin,Total 4.2 MG/DL (0.2-1.0); Calcium 8.4 MG/DL (8.5-10.1); Osmolality,Calculated 276.5 MOS/KG (273-304); Potassium 4.3 MMOL/L (3.5-5.1); Total Protein 6.4 G/DL (6.4-8.2)
[2020-12-21 07:52] LABS: Eosinophils 8 % (0-10); Lymphocytes 39 % (20-55); Nucleated Red Blood Cells 1 (0-5); Segmented Neutrophils 47 % (50-85); Total Cells Counted 100
[2020-12-21 07:53] LABS: Anisocytosis 1+; Hypochromasia 1+; Microcytosis 1+; Polychromasia Slight; Target Cells Slight
[2020-12-21 07:54] LABS: Pappenheimer Bodies Slight; Platelet Estimate Adequate
[2020-12-21 07:55] LABS: Ovalocytes Few; Sickle Cells Few
[2020-12-21] MEDS ORDERED: amLODIPine 10 MG TABLET PO SCH (09:00)
[2020-12-21 11:33] VITALS: BP 159/93
[2020-12-21] MEDS ORDERED: HYDROmorphone PCA 30 MG/30 ML SYRINGE IV SCH (22:00)
[2020-12-22] MEDS ORDERED: HYDROmorphone 2 MG TABLET PO PRN (21:46)
== END 2020-12-21 12:16 | disposition home health service (06) ==
LOC: N.ED 16:03 → N.EDINP 20:50 → INTOOBSV 20:50 → N.3E 22:05
PROVIDERS: ADMIT Internal Medicine; ATTEND Internal Medicine

== ENCOUNTER 2021-11-05 11:30 | Inpatient (IN) ==
[2021-11-05 12:54] LABS: Basophils # 0.2 10*3/uL (0.0-0.2); Eosinophils # 1.3 10*3/uL (0.0-0.87); Eosinophils % 6.7 % (0.00-10.9); Hematocrit 21.8 VOL% (42.0-52.0); Hemoglobin 7.3 GM/DL (14.0-18.0); Immature Granulocytes % 0.6 %; Immature Granulocytes Absolute 0.12 #; Lymphocytes # 6.7 10*3/uL (1.4-4.0); Lymphocytes % 34.4 % (21.2-54.2); Mean Corpuscular HGB Conc 33.5 GM/DL (32-36); Mean Corpuscular Volume 95.6 FL (87-102); Mean Platelet Volume 12.5 FL (9.6-12.0); Monocytes # 1.7 10*3/uL (0.11-0.8); Monocytes % 8.6 % (1.7-12.7); NRBC # 0.13 10*3/uL; Neutrophils % 48.7 % (38.7-73.9); Platelet Count 183 T/CUMM (130-400); Red Blood Count 2.28 MC/CUMM (3.8-5.5); Red Cell Distribution Width 20.9 % (9.3-17.3); White Blood Count 19.6 T/CUMM (4-12)
[2021-11-05] MEDS ORDERED: SODIUM CHLORIDE 0.9% 1,000 ML IV STA (12:57)
[2021-11-05 13:05] LABS: Eosinophils 8 % (0-10); Lymphocytes 32 % (20-55); Nucleated Red Blood Cells 1 (0-5); Total Cells Counted 100
[2021-11-05 13:06] LABS: Anisocytosis 1+; Atypical Lymphocytes Few; Macrocytosis 1+; Microcytosis 1+; Poikilocytosis 2+; Polychromasia 1+; Sickle Cells 2+
[2021-11-05 13:07] LABS: Platelet Estimate Normal; Target Cells 1+
[2021-11-05 13:12] LABS: Albumin 3.1 G/DL (3.4-5.0); Bilirubin,Total 2.7 MG/DL (0.20-1.00); Calcium 8.8 MG/DL (8.5-10.1); Osmolality,Calculated 281.5 MOS/KG (273-304); Potassium 4.5 MMOL/L (3.5-5.1); Total Protein 6.5 G/DL (6.4-8.2)
[2021-11-05] MEDS ORDERED: ONDANSETRON 4 MG/2 ML VIAL IV STA (13:21)
[2021-11-05] MEDS ORDERED: HYDROmorphone 1 MG/1 ML SYRINGE IV STA ×3 (13:21→17:09)
[2021-11-05 13:33] LABS: Hyaline Casts,Urine 1 /LPF (0-3); Mucus,Urine Occasional /LPF (Occasional); RBC,Urine 2 /HPF (0-4)
[2021-11-05 13:34] LABS: Bilirubin,Urine Negative (Negative); Blood, Urine Moderate mg/dL (Negative); Glucose,Urine (UA) Negative (Negative); Ketones,Urine Negative (Negative); Nitrite,Urine Negative (Negative); Protein,Urine >=300 mg/dL (Negative); Urine Appearance Clear (Clear); Urine Color Yellow (Yellow); Urine Specific Gravity 1.015 (1.001-1.035); Urine Urobilinogen 0.2 eU/dL (<2.0); Urine pH 5.5 (4.5-8.0)
[2021-11-05 13:58] LABS: Barbiturates Screen,Urine Negative (Negative); Benzodiazepines Screen,Urine Negative (Negative); Cannabinoid Screen,Urine Positive (Negative); Opiate Screen,Urine Negative (Negative); Phencyclidine Screen,Urine Negative (Negative)
[2021-11-05] MEDS ORDERED: diphenhydrAMINE 50 MG/1 ML VIAL IV STA ×2 (14:37→15:15)
[2021-11-05] MEDS ORDERED: GLUCAGON 1 MG VIAL IM PRN (15:10)
[2021-11-05] MEDS ORDERED: hydrALAZINE 20 MG/1 ML VIAL IV PRN (15:11)
[2021-11-05] MEDS ORDERED: ACETAMINOPHEN 325 MG TABLET PO PRN (15:11)
[2021-11-05] MEDS ORDERED: SODIUM CHLORIDE 0.9% 1,000 ML IV PRN (15:18)
[2021-11-05] MEDS ORDERED: DEXTROSE 10% 250 ML BAG IV PRN (15:20)
[2021-11-05] MEDS ORDERED: oxyCODONE/ACETAMINOPHEN 5-325 MG TABLET PO PRN (15:20)
[2021-11-05] MEDS ORDERED: NALOXONE 0.4 MG/ML VIAL IV PRN (15:25)
[2021-11-05 15:50] LABS: Folate 9.14 NG/ML (5.38-24.0)
[2021-11-05 15:58] LABS: % Iron Saturation 89.6 % (18-50); Ferritin 7876.7 ng/mL (26-388)
[2021-11-05] MEDS ORDERED: HYDROmorphone PCA 30 MG/30 ML SYRINGE IV SCH (16:00)
[2021-11-05] MEDS: SODIUM CHLORIDE 0.9% 1,000 ML IV SCH ×2 (18:57→22:31)
[2021-11-05] MEDS: PANTOPRAZOLE 40 MG VIAL IV SCH (18:58)
[2021-11-05] MEDS ORDERED: DOCUSATE SODIUM 100 MG CAPSULE PO SCH ×2 (21:00)
[2021-11-05] MEDS: FOLIC ACID 1 MG TABLET PO SCH (21:20)
[2021-11-05] MEDS: GABAPENTIN 300 MG CAPSULE PO SCH (21:20)
[2021-11-05] MEDS: diphenhydrAMINE CAP 25 MG CAPSULE PO PRN (21:53)
[2021-11-06] MEDS: ONDANSETRON 4 MG/2 ML VIAL IV PRN ×3 (04:04→16:35)
[2021-11-06] MEDS: diphenhydrAMINE CAP 25 MG CAPSULE PO PRN ×4 (04:04→20:51)
[2021-11-06] MEDS: SODIUM CHLORIDE 0.9% 1,000 ML IV SCH ×3 (04:23→19:45)
[2021-11-06 05:32] LABS: Basophils # 0.2 10*3/uL (0.0-0.2); Basophils % 1.1 % (0.0-0.8); Eosinophils # 0.8 10*3/uL (0.0-0.87); Eosinophils % 4.5 % (0.00-10.9); Hematocrit 21.5 VOL% (42.0-52.0); Hemoglobin 7.2 GM/DL (14.0-18.0); Immature Granulocytes % 0.6 %; Immature Granulocytes Absolute 0.11 #; Lymphocytes # 3.3 10*3/uL (1.4-4.0); Lymphocytes % 19.3 % (21.2-54.2); Mean Corpuscular HGB Conc 33.5 GM/DL (32-36); Mean Corpuscular Volume 96.4 FL (87-102); Mean Platelet Volume 12.8 FL (9.6-12.0); Monocytes # 1.8 10*3/uL (0.11-0.8); Monocytes % 10.7 % (1.7-12.7); NRBC # 0.12 10*3/uL; Neutrophils % 63.8 % (38.7-73.9); Platelet Count 178 T/CUMM (130-400); Red Blood Count 2.23 MC/CUMM (3.8-5.5); Red Cell Distribution Width 20.5 % (9.3-17.3); White Blood Count 17.2 T/CUMM (4-12)
[2021-11-06 06:00] LABS: Albumin 3.4 G/DL (3.4-5.0); Bilirubin,Total 3.2 MG/DL (0.20-1.00); Calcium 8.6 MG/DL (8.5-10.1); Osmolality,Calculated 281.4 MOS/KG (273-304); Potassium 4.2 MMOL/L (3.5-5.1); Total Protein 6.9 G/DL (6.4-8.2)
[2021-11-06] MEDS: GABAPENTIN 300 MG CAPSULE PO SCH ×3 (08:06→20:51)
[2021-11-06] MEDS: PANTOPRAZOLE 40 MG VIAL IV SCH (08:32)
[2021-11-06] MEDS ORDERED: MAGNESIUM SULF RIDER 2 GM/50 ML PREMIX IV ONE (08:34)
[2021-11-06] MEDS ORDERED: ERGOCALCIFEROL 50,000 UNIT CAPSULE PO SCH (09:00)
[2021-11-06] MEDS: HYDROmorphone PCA 30 MG/30 ML SYRINGE IV SCH (16:54)
[2021-11-06] MEDS: FOLIC ACID 1 MG TABLET PO SCH (20:51)
[2021-11-06] MEDS: DOCUSATE SODIUM 100 MG CAPSULE PO SCH (20:51)
[2021-11-07] MEDS: SODIUM CHLORIDE 0.9% 1,000 ML IV SCH ×4 (00:01→17:59)
[2021-11-07 05:10] LABS: Bilirubin,Total 3.6 MG/DL (0.20-1.00); Calcium 8.7 MG/DL (8.5-10.1); Osmolality,Calculated 275.8 MOS/KG (273-304); Potassium 4.6 MMOL/L (3.5-5.1); Total Protein 6.3 G/DL (6.4-8.2)
[2021-11-07 06:17] LABS: Basophils # 0.1 10*3/uL (0.0-0.2); Basophils % 0.6 % (0.0-0.8); Eosinophils % 5.1 % (0.00-10.9); Immature Granulocytes % 0.4 %; Immature Granulocytes Absolute 0.08 #; Lymphocytes # 7.4 10*3/uL (1.4-4.0); Lymphocytes % 38.4 % (21.2-54.2); Mean Corpuscular HGB Conc 34.8 GM/DL (32-36); Mean Corpuscular Volume 93.7 FL (87-102); Mean Platelet Volume 12.7 FL (9.6-12.0); Monocytes # 1.7 10*3/uL (0.11-0.8); Monocytes % 8.7 % (1.7-12.7); NRBC # 0.15 10*3/uL; Neutrophils % 46.8 % (38.7-73.9); Platelet Count 163 T/CUMM (130-400); Red Cell Distribution Width 20.8 % (9.3-17.3); White Blood Count 19.2 T/CUMM (4-12)
[2021-11-07 06:23] LABS: Hematocrit 17.8 VOL% (42.0-52.0); Hemoglobin 6.2 GM/DL (14.0-18.0)
[2021-11-07 06:26] LABS: Pappenheimer Bodies 1+; Polychromasia Few
[2021-11-07 06:28] LABS: Target Cells Few
[2021-11-07 06:29] LABS: Anisocytosis 2+; Ovalocytes 2+; Tear Drop Cells Few
[2021-11-07 06:30] LABS: Hypochromia 1+; Sickle Cells 1+
[2021-11-07 06:33] LABS: Platelet Estimate Normal
[2021-11-07] MEDS: GABAPENTIN 300 MG CAPSULE PO SCH ×3 (09:31→21:11)
[2021-11-07] MEDS: DOCUSATE SODIUM 100 MG CAPSULE PO SCH ×2 (09:31→21:11)
[2021-11-07] MEDS: PANTOPRAZOLE 40 MG VIAL IV SCH (09:34)
[2021-11-07] MEDS: diphenhydrAMINE 50 MG/1 ML VIAL IV PRN ×2 (10:15→18:01)
[2021-11-07] MEDS: HYDROmorphone PCA 30 MG/30 ML SYRINGE IV SCH (15:42)
[2021-11-07 16:20] LABS: Hematocrit 23.3 VOL% (42.0-52.0); Hemoglobin 8.1 GM/DL (14.0-18.0)
[2021-11-07] MEDS: FOLIC ACID 1 MG TABLET PO SCH (21:11)
[2021-11-08] MEDS: SODIUM CHLORIDE 0.9% 1,000 ML IV SCH ×5 (04:10→23:00)
[2021-11-08 05:02] LABS: Basophils # 0.1 10*3/uL (0.0-0.2); Basophils % 0.7 % (0.0-0.8); Eosinophils % 5.2 % (0.00-10.9); Hematocrit 23.5 VOL% (42.0-52.0); Hemoglobin 7.9 GM/DL (14.0-18.0); Immature Granulocytes % 0.7 %; Immature Granulocytes Absolute 0.13 #; Lymphocytes # 3.7 10*3/uL (1.4-4.0); Lymphocytes % 19.2 % (21.2-54.2); Mean Corpuscular HGB Conc 33.6 GM/DL (32-36); Mean Platelet Volume 12.9 FL (9.6-12.0); Monocytes # 1.4 10*3/uL (0.11-0.8); Monocytes % 7.3 % (1.7-12.7); NRBC # 0.15 10*3/uL; Neutrophils % 66.9 % (38.7-73.9); Platelet Count 163 T/CUMM (130-400); Red Blood Count 2.61 MC/CUMM (3.8-5.5); Red Cell Distribution Width 20.9 % (9.3-17.3); White Blood Count 19.1 T/CUMM (4-12)
[2021-11-08 05:18] LABS: Bilirubin,Total 4.4 MG/DL (0.20-1.00); Osmolality,Calculated 280.4 MOS/KG (273-304); Potassium 5.1 MMOL/L (3.5-5.1); Total Protein 6.1 G/DL (6.4-8.2)
[2021-11-08] MEDS: PANTOPRAZOLE 40 MG VIAL IV SCH (09:07)
[2021-11-08] MEDS: DOCUSATE SODIUM 100 MG CAPSULE PO SCH ×2 (09:10→20:07)
[2021-11-08] MEDS: GABAPENTIN 300 MG CAPSULE PO SCH ×3 (09:10→20:07)
[2021-11-08] MEDS: diphenhydrAMINE 50 MG/1 ML VIAL IV PRN ×2 (09:10→17:14)
[2021-11-08 09:29] LABS: Basophils # 0.1 10*3/uL (0.0-0.2); Basophils % 0.7 % (0.0-0.8); Eosinophils # 0.8 10*3/uL (0.0-0.87); Eosinophils % 4.3 % (0.00-10.9); Hemoglobin 8.1 GM/DL (14.0-18.0); Immature Granulocytes % 0.5 %; Immature Granulocytes Absolute 0.09 #; Lymphocytes # 3.9 10*3/uL (1.4-4.0); Lymphocytes % 20.2 % (21.2-54.2); Mean Corpuscular HGB Conc 35.2 GM/DL (32-36); Mean Corpuscular Volume 86.8 FL (87-102); Mean Platelet Volume 11.2 FL (9.6-12.0); Monocytes # 1.4 10*3/uL (0.11-0.8); NRBC # 0.14 10*3/uL; Neutrophils % 67.3 % (38.7-73.9); Platelet Count 111 T/CUMM (130-400); Red Blood Count 2.65 MC/CUMM (3.8-5.5); White Blood Count 19.4 T/CUMM (4-12)
[2021-11-08 10:32] LABS: Eosinophils 6 % (0-10); Lymphocytes 12 % (20-55); Total Cells Counted 100
[2021-11-08 10:33] LABS: Ovalocytes 2+; Sickle Cells 1+
[2021-11-08 10:34] LABS: Anisocytosis 1+; Target Cells Few
[2021-11-08 10:35] LABS: Platelet Estimate Normal; Polychromasia Few
[2021-11-08] MEDS: oxyCODONE IR 5 MG TABLET PO PRN (20:06)
[2021-11-08] MEDS: FOLIC ACID 1 MG TABLET PO SCH (20:06)
[2021-11-09] MEDS: diphenhydrAMINE 50 MG/1 ML VIAL IV PRN ×3 (01:35→17:21)
[2021-11-09] MEDS: oxyCODONE IR 5 MG TABLET PO PRN ×3 (01:35→14:44)
[2021-11-09 05:34] LABS: Basophils # 0.2 10*3/uL (0.0-0.2); Basophils % 0.9 % (0.0-0.8); Eosinophils % 5.7 % (0.00-10.9); Hematocrit 22.2 VOL% (42.0-52.0); Hemoglobin 7.4 GM/DL (14.0-18.0); Immature Granulocytes % 0.5 %; Immature Granulocytes Absolute 0.09 #; Lymphocytes # 4.8 10*3/uL (1.4-4.0); Lymphocytes % 27.4 % (21.2-54.2); Mean Corpuscular HGB Conc 33.3 GM/DL (32-36); Mean Corpuscular Volume 90.6 FL (87-102); Mean Platelet Volume 12.6 FL (9.6-12.0); Monocytes # 1.3 10*3/uL (0.11-0.8); Monocytes % 7.7 % (1.7-12.7); NRBC # 0.13 10*3/uL; Neutrophils % 57.8 % (38.7-73.9); Platelet Count 159 T/CUMM (130-400); Red Blood Count 2.45 MC/CUMM (3.8-5.5); White Blood Count 17.5 T/CUMM (4-12)
[2021-11-09 05:54] LABS: Albumin 2.8 G/DL (3.4-5.0); Bilirubin,Total 3.5 MG/DL (0.20-1.00); Calcium 8.9 MG/DL (8.5-10.1); Osmolality,Calculated 280.5 MOS/KG (273-304); Potassium 4.9 MMOL/L (3.5-5.1); Total Protein 5.7 G/DL (6.4-8.2)
[2021-11-09] MEDS: GABAPENTIN 300 MG CAPSULE PO SCH ×3 (08:40→20:26)
[2021-11-09] MEDS: DOCUSATE SODIUM 100 MG CAPSULE PO SCH ×2 (08:41→20:26)
[2021-11-09] MEDS: PANTOPRAZOLE 40 MG VIAL IV SCH (08:42)
[2021-11-09] MEDS: oxyCODONE ER 10 MG TABLET PO SCH ×2 (12:47→20:26)
[2021-11-09] MEDS: SODIUM CHLORIDE 0.9% 1,000 ML IV SCH ×2 (15:12→23:49)
[2021-11-09] MEDS: FOLIC ACID 1 MG TABLET PO SCH (20:26)
[2021-11-10] MEDS: diphenhydrAMINE 50 MG/1 ML VIAL IV PRN ×3 (02:39→17:39)
[2021-11-10] MEDS: oxyCODONE IR 5 MG TABLET PO PRN ×2 (02:39→11:55)
[2021-11-10 05:59] LABS: Basophils # 0.2 10*3/uL (0.0-0.2); Eosinophils # 1.2 10*3/uL (0.0-0.87); Eosinophils % 6.8 % (0.00-10.9); Hemoglobin 7.1 GM/DL (14.0-18.0); Immature Granulocytes % 0.6 %; Lymphocytes # 5.8 10*3/uL (1.4-4.0); Mean Corpuscular HGB Conc 33.8 GM/DL (32-36); Mean Corpuscular Volume 90.1 FL (87-102); Mean Platelet Volume 12.2 FL (9.6-12.0); Monocytes # 1.5 10*3/uL (0.11-0.8); Monocytes % 8.5 % (1.7-12.7); NRBC # 0.12 10*3/uL; Neutrophils % 50.1 % (38.7-73.9); Platelet Count 146 T/CUMM (130-400); Red Blood Count 2.33 MC/CUMM (3.8-5.5); White Blood Count 17.6 T/CUMM (4-12)
[2021-11-10] MEDS: SODIUM CHLORIDE 0.9% 1,000 ML IV SCH ×2 (06:17→08:41)
[2021-11-10] MEDS: DOCUSATE SODIUM 100 MG CAPSULE PO SCH ×2 (08:39→20:58)
[2021-11-10] MEDS: PANTOPRAZOLE 40 MG VIAL IV SCH (08:40)
[2021-11-10] MEDS: GABAPENTIN 300 MG CAPSULE PO SCH ×3 (08:40→20:58)
[2021-11-10] MEDS: oxyCODONE ER 10 MG TABLET PO SCH (08:47)
[2021-11-10 09:50] LABS: Eosinophils 2 % (0-10); Lymphocytes 30 % (20-55); Nucleated Red Blood Cells 1 (0-5); Poikilocytosis 2+; Sickle Cells 1+; Total Cells Counted 100
[2021-11-10 09:51] LABS: Anisocytosis 2+; Platelet Estimate Adequate; Stomatocytes Few; Target Cells Few; Tear Drop Cells Slight
[2021-11-10] MEDS: oxyCODONE ER 20 MG TABLET PO SCH ×2 (13:59→20:58)
[2021-11-10] MEDS: FOLIC ACID 1 MG TABLET PO SCH (20:58)
[2021-11-11] MEDS: diphenhydrAMINE 50 MG/1 ML VIAL IV PRN ×3 (01:49→17:18)
[2021-11-11 05:33] LABS: Basophils # 0.1 10*3/uL (0.0-0.2); Basophils % 0.8 % (0.0-0.8); Eosinophils # 1.3 10*3/uL (0.0-0.87); Eosinophils % 7.6 % (0.00-10.9); Hemoglobin 6.9 GM/DL (14.0-18.0); Immature Granulocytes % 0.7 %; Immature Granulocytes Absolute 0.12 #; Lymphocytes % 28.6 % (21.2-54.2); Mean Corpuscular HGB Conc 32.9 GM/DL (32-36); Mean Corpuscular Volume 91.3 FL (87-102); Mean Platelet Volume 12.4 FL (9.6-12.0); Monocytes # 1.7 10*3/uL (0.11-0.8); Monocytes % 9.5 % (1.7-12.7); NRBC # 0.13 10*3/uL; Neutrophils % 52.8 % (38.7-73.9); Platelet Count 154 T/CUMM (130-400); Red Cell Distribution Width 20.5 % (9.3-17.3); White Blood Count 17.6 T/CUMM (4-12)
[2021-11-11] MEDS ORDERED: SODIUM CHLORIDE 0.9% 1,000 ML IV PRN (08:37)
[2021-11-11] MEDS: DOCUSATE SODIUM 100 MG CAPSULE PO SCH (09:08)
[2021-11-11] MEDS: oxyCODONE ER 20 MG TABLET PO SCH (09:08)
[2021-11-11] MEDS: PANTOPRAZOLE 40 MG VIAL IV SCH (09:09)
[2021-11-11] MEDS: GABAPENTIN 300 MG CAPSULE PO SCH ×2 (09:09→16:40)
[2021-11-11] MEDS ORDERED: HYDROmorphone 1 MG/1 ML SYRINGE IV ONE (10:41)
[2021-11-11] MEDS: oxyCODONE IR 5 MG TABLET PO PRN (13:13)
[2021-11-11 17:20] VITALS: BP 170/101
[2021-11-11 17:23] LABS: Hematocrit 29.5 VOL% (42.0-52.0); Hemoglobin 10.2 GM/DL (14.0-18.0)
== END 2021-11-11 18:53 | disposition home or self-care (01) | DRG 812 ==
LOC: N.ED 11:30 → N.EDINP 15:10 → SUATTDRO 15:10 → N.TELEN 19:49
PROVIDERS: ADMIT Family Medicine; ATTEND Internal Medicine

== ENCOUNTER 2022-05-28 15:20 | Inpatient (IN) ==
[2022-05-28] MEDS ORDERED: ONDANSETRON 4 MG/2 ML VIAL IV STA (19:18)
[2022-05-28] MEDS ORDERED: SODIUM CHLORIDE 0.9% 1,000 ML IV STA (19:18)
[2022-05-28] MEDS ORDERED: PANTOPRAZOLE 40 MG VIAL IV STA (19:18)
[2022-05-28 20:11] LABS: Basophils # 0.1 10*3/uL (0.0-0.2); Basophils % 0.3 % (0.0-0.8); Eosinophils # 0.8 10*3/uL (0.0-0.87); Eosinophils % 3.8 % (0.00-10.9); Hematocrit 20.4 VOL% (42.0-52.0); Hemoglobin 6.9 GM/DL (14.0-18.0); Immature Granulocytes % 1.1 %; Immature Granulocytes Absolute 0.22 #; Lymphocytes # 3.2 10*3/uL (1.4-4.0); Lymphocytes % 15.8 % (21.2-54.2); Mean Corpuscular HGB Conc 33.8 GM/DL (32-36); Mean Corpuscular Volume 90.7 FL (87-102); Mean Platelet Volume 12.2 FL (9.6-12.0); Monocytes # 1.3 10*3/uL (0.11-0.8); Monocytes % 6.6 % (1.7-12.7); NRBC # 0.27 10*3/uL; Neutrophils % 72.4 % (38.7-73.9); Platelet Count 229 T/CUMM (130-400); Red Blood Count 2.25 MC/CUMM (3.8-5.5); Red Cell Distribution Width 24.5 % (9.3-17.3); White Blood Count 19.9 T/CUMM (4-12)
[2022-05-28 20:27] LABS: Albumin 3.2 G/DL (3.4-5.0); Bilirubin,Total 3.6 MG/DL (0.20-1.00); Calcium 8.9 MG/DL (8.5-10.1); Total Protein 6.4 G/DL (6.4-8.2)
[2022-05-28 20:32] LABS: Eosinophils 5 % (0-10); Lymphocytes 9 % (20-55); Nucleated Red Blood Cells 2 /100 WBC (0-5)
[2022-05-28 20:33] LABS: Ovalocytes Slight; Polychromasia Slight
[2022-05-28 20:34] LABS: Pappenheimer Bodies Few; Sickle Cells Few
[2022-05-28 20:35] LABS: Platelet Estimate Normal; Target Cells Slight
[2022-05-28 20:36] LABS: Total Cells Counted 100
[2022-05-28] MEDS ORDERED: HYDROmorphone 1 MG/1 ML SYRINGE IV ONE (20:36)
[2022-05-28 20:48] LABS: Bilirubin,Urine Negative (Negative); Blood, Urine Moderate mg/dL (Negative); Glucose,Urine (UA) Negative (Negative); Ketones,Urine Negative (Negative); Mucus,Urine Occasional /LPF (Occasional); Nitrite,Urine Negative (Negative); Protein,Urine >=500 mg/dL (Negative); RBC,Urine 2 /HPF (0-4); Urine Appearance CLEAR (Clear); Urine Color Amber (Yellow); Urine Specific Gravity 1.009 (1.001-1.035); Urine Urobilinogen < 2.0 eU/dL (<2.0)
[2022-05-28] MEDS ORDERED: SODIUM CHLORIDE 0.9% 1,000 ML IV PRN (20:52)
[2022-05-28 21:23] LABS: Barbiturates Screen,Urine Negative (Negative); Benzodiazepines Screen,Urine Negative (Negative); Cannabinoid Screen,Urine Positive (Negative); Opiate Screen,Urine Negative (Negative); Phencyclidine Screen,Urine Negative (Negative)
[2022-05-28] MEDS: MAGNESIUM SULF RIDER 2 GM/50 ML PREMIX IV PRN (21:30)
[2022-05-28] MEDS ORDERED: ZALEPLON 5 MG CAPSULE PO PRN (23:44)
[2022-05-28] MEDS ORDERED: hydrALAZINE 20 MG/1 ML VIAL IV PRN (23:44)
[2022-05-28] MEDS ORDERED: NICOTINE 21 MG/24 HR PATCH TRANSDERM PRN (23:44)
[2022-05-29] MEDS: MORPHINE 2 MG/1 ML SYRINGE IV PRN ×5 (03:15→20:32)
[2022-05-29] MEDS: SODIUM CHLORIDE 0.9% 1,000 ML IV SCH ×2 (06:23→12:37)
[2022-05-29] MEDS: PIPERACILLIN/TAZOBACTAM 3,375 MG in SODIUM CHLORIDE 0.9% 100 ML IV SCH ×2 (08:53→16:40)
[2022-05-29] MEDS: PANTOPRAZOLE 40 MG TABLET PO SCH (08:53)
[2022-05-29 09:08] LABS: Basophils % 0.2 % (0.0-0.8); Eosinophils % 5.5 % (0.00-10.9); Hematocrit 24.4 VOL% (42.0-52.0); Hemoglobin 8.3 GM/DL (14.0-18.0); Immature Granulocytes % 0.8 %; Immature Granulocytes Absolute 0.13 #; Lymphocytes # 2.9 10*3/uL (1.4-4.0); Lymphocytes % 16.7 % (21.2-54.2); Mean Corpuscular Volume 90.4 FL (87-102); Mean Platelet Volume 11.4 FL (9.6-12.0); Monocytes # 1.6 10*3/uL (0.11-0.8); Monocytes % 9.1 % (1.7-12.7); NRBC # 0.18 10*3/uL; Neutrophils % 67.7 % (38.7-73.9); Platelet Count 217 T/CUMM (130-400); Red Cell Distribution Width 21.7 % (9.3-17.3); White Blood Count 17.2 T/CUMM (4-12)
[2022-05-29 09:21] LABS: Calcium 8.3 MG/DL (8.5-10.1); Osmolality,Calculated 275.8 MOS/KG (273-304)
[2022-05-29 09:27] LABS: Bilirubin,Direct 1.33 MG/DL (0.0-0.20); Bilirubin,Indirect 2.1 MG/DL (0.0-1.0); Bilirubin,Total 3.4 MG/DL (0.20-1.00); Total Protein 5.8 G/DL (6.4-8.2)
[2022-05-29 09:30] LABS: Eosinophils 5 % (0-10); Lymphocytes 12 % (20-55); Platelet Estimate Adequate; Sickle Cells Few; Total Cells Counted 100
[2022-05-29 09:31] LABS: Hypochromia Slight
[2022-05-29 09:33] LABS: Howell-Jolly Bodies Few; Pappenheimer Bodies Slight
[2022-05-29] MEDS: MAGNESIUM SULF RIDER 2 GM/50 ML PREMIX IV PRN (11:57)
[2022-05-29] MEDS ORDERED: MAGNESIUM SULF RIDER 4 GM/100 ML PREMIX IV PRN (12:53)
[2022-05-29] MEDS ORDERED: MAGNESIUM SULF RIDER 2 GM/50 ML PREMIX IV PRN (12:53)
[2022-05-30] MEDS: MORPHINE 2 MG/1 ML SYRINGE IV PRN ×3 (02:21→19:17)
[2022-05-30 05:55] LABS: Calcium 8.4 MG/DL (8.5-10.1); Osmolality,Calculated 275.7 MOS/KG (273-304); Potassium 4.5 MMOL/L (3.5-5.1)
[2022-05-30 07:03] LABS: Basophils # 0.1 10*3/uL (0.0-0.2); Basophils % 0.5 % (0.0-0.8); Eosinophils # 1.5 10*3/uL (0.0-0.87); Eosinophils % 8.6 % (0.00-10.9); Hematocrit 24.6 VOL% (42.0-52.0); Hemoglobin 8.5 GM/DL (14.0-18.0); Immature Granulocytes % 0.5 %; Immature Granulocytes Absolute 0.08 #; Lymphocytes # 4.4 10*3/uL (1.4-4.0); Lymphocytes % 25.6 % (21.2-54.2); Mean Corpuscular HGB Conc 34.6 GM/DL (32-36); Mean Corpuscular Volume 89.5 FL (87-102); Mean Platelet Volume 10.7 FL (9.6-12.0); Monocytes # 1.4 10*3/uL (0.11-0.8); Monocytes % 8.4 % (1.7-12.7); NRBC # 0.13 10*3/uL; Neutrophils % 56.4 % (38.7-73.9); Platelet Count 190 T/CUMM (130-400); Red Blood Count 2.75 MC/CUMM (3.8-5.5)
[2022-05-30 07:25] LABS: Eosinophils 6 % (0-10); Hypochromia Slight; Lymphocytes 21 % (20-55); Nucleated Red Blood Cells 1 /100 WBC (0-5); Platelet Estimate Adequate; Sickle Cells 1+; Total Cells Counted 100
[2022-05-30 07:26] LABS: Howell-Jolly Bodies Few; Pappenheimer Bodies Slight
[2022-05-30] MEDS: PIPERACILLIN/TAZOBACTAM 3,375 MG in SODIUM CHLORIDE 0.9% 100 ML IV SCH ×3 (09:42→16:48)
[2022-05-30] MEDS: PANTOPRAZOLE 40 MG TABLET PO SCH (09:43)
[2022-05-30] MEDS: SODIUM CHLORIDE 0.9% 1,000 ML IV SCH (14:14)
[2022-05-30] MEDS: ONDANSETRON 4 MG/2 ML VIAL IV PRN (16:55)
[2022-05-31] MEDS: PIPERACILLIN/TAZOBACTAM 3,375 MG in SODIUM CHLORIDE 0.9% 100 ML IV SCH ×2 (01:20→08:26)
[2022-05-31] MEDS: MORPHINE 2 MG/1 ML SYRINGE IV PRN ×5 (01:24→23:58)
[2022-05-31] MEDS: SODIUM CHLORIDE 0.9% 1,000 ML IV SCH ×3 (02:36→18:11)
[2022-05-31 05:29] LABS: Basophils # 0.1 10*3/uL (0.0-0.2); Basophils % 0.6 % (0.0-0.8); Eosinophils # 1.4 10*3/uL (0.0-0.87); Eosinophils % 10.1 % (0.00-10.9); Hematocrit 21.8 VOL% (42.0-52.0); Hemoglobin 7.6 GM/DL (14.0-18.0); Immature Granulocytes % 0.5 %; Immature Granulocytes Absolute 0.07 #; Lymphocytes # 3.8 10*3/uL (1.4-4.0); Lymphocytes % 27.2 % (21.2-54.2); Mean Corpuscular HGB Conc 34.9 GM/DL (32-36); Mean Corpuscular Volume 89.3 FL (87-102); Mean Platelet Volume 12.1 FL (9.6-12.0); Monocytes # 1.4 10*3/uL (0.11-0.8); Monocytes % 9.9 % (1.7-12.7); NRBC # 0.06 10*3/uL; Neutrophils % 51.7 % (38.7-73.9); Platelet Count 165 T/CUMM (130-400); Red Blood Count 2.44 MC/CUMM (3.8-5.5); Red Cell Distribution Width 19.9 % (9.3-17.3)
[2022-05-31 05:46] LABS: Albumin 2.7 G/DL (3.4-5.0); Bilirubin,Total 3.7 MG/DL (0.20-1.00); Calcium 8.3 MG/DL (8.5-10.1); Osmolality,Calculated 280.4 MOS/KG (273-304); Potassium 4.4 MMOL/L (3.5-5.1); Total Protein 5.9 G/DL (6.4-8.2)
[2022-05-31] MEDS: PANTOPRAZOLE 40 MG TABLET PO SCH (08:26)
[2022-05-31 17:24] LABS: Hemoglobin 8.2 GM/DL (14.0-18.0)
[2022-05-31] MEDS: LINEZOLID INJ 600 MG/300 ML PREMIX IV SCH (21:02)
[2022-06-01] MEDS: SODIUM CHLORIDE 0.9% 1,000 ML IV SCH ×2 (05:00→18:32)
[2022-06-01 05:22] LABS: Basophils # 0.1 10*3/uL (0.0-0.2); Basophils % 0.6 % (0.0-0.8); Eosinophils # 1.7 10*3/uL (0.0-0.87); Eosinophils % 11.4 % (0.00-10.9); Hematocrit 22.4 VOL% (42.0-52.0); Hemoglobin 7.6 GM/DL (14.0-18.0); Immature Granulocytes % 0.4 %; Immature Granulocytes Absolute 0.06 #; Lymphocytes # 4.7 10*3/uL (1.4-4.0); Lymphocytes % 32.6 % (21.2-54.2); Mean Corpuscular HGB Conc 33.9 GM/DL (32-36); Mean Corpuscular Volume 89.6 FL (87-102); Mean Platelet Volume 12.2 FL (9.6-12.0); Monocytes # 1.3 10*3/uL (0.11-0.8); Monocytes % 8.9 % (1.7-12.7); NRBC # 0.06 10*3/uL; Neutrophils % 46.1 % (38.7-73.9); Platelet Count 146 T/CUMM (130-400); White Blood Count 14.5 T/CUMM (4-12)
[2022-06-01 05:42] LABS: Calcium 8.6 MG/DL (8.5-10.1); Osmolality,Calculated 278.7 MOS/KG (273-304); Potassium 4.5 MMOL/L (3.5-5.1)
[2022-06-01] MEDS: MORPHINE 2 MG/1 ML SYRINGE IV PRN (06:32)
[2022-06-01 06:56] LABS: Eosinophils 15 % (0-10); Hypochromia Slight; Lymphocytes 25 % (20-55); Platelet Estimate Adequate; Sickle Cells Few; Total Cells Counted 100
[2022-06-01 06:57] LABS: Elliptocytes Few; Howell-Jolly Bodies Few; Pappenheimer Bodies Slight
[2022-06-01] MEDS: LINEZOLID INJ 600 MG/300 ML PREMIX IV SCH ×2 (09:45→21:20)
[2022-06-01] MEDS: PANTOPRAZOLE 40 MG TABLET PO SCH (09:51)
[2022-06-01] MEDS: ONDANSETRON 4 MG/2 ML VIAL IV PRN (15:42)
[2022-06-02] MEDS: ONDANSETRON 4 MG/2 ML VIAL IV PRN ×3 (02:04→20:11)
[2022-06-02 05:39] LABS: Basophils # 0.1 10*3/uL (0.0-0.2); Basophils % 0.6 % (0.0-0.8); Eosinophils # 1.2 10*3/uL (0.0-0.87); Eosinophils % 9.7 % (0.00-10.9); Hematocrit 20.9 VOL% (42.0-52.0); Immature Granulocytes % 0.6 %; Immature Granulocytes Absolute 0.07 #; Lymphocytes # 3.4 10*3/uL (1.4-4.0); Lymphocytes % 27.5 % (21.2-54.2); Mean Corpuscular HGB Conc 33.5 GM/DL (32-36); Mean Corpuscular Volume 89.3 FL (87-102); Mean Platelet Volume 12.3 FL (9.6-12.0); Monocytes # 1.4 10*3/uL (0.11-0.8); Monocytes % 11.2 % (1.7-12.7); NRBC # 0.04 10*3/uL; Neutrophils % 50.4 % (38.7-73.9); Platelet Count 141 T/CUMM (130-400); Red Blood Count 2.34 MC/CUMM (3.8-5.5); Red Cell Distribution Width 19.9 % (9.3-17.3); White Blood Count 12.5 T/CUMM (4-12)
[2022-06-02 06:07] LABS: Calcium 8.2 MG/DL (8.5-10.1); Osmolality,Calculated 276.7 MOS/KG (273-304); Potassium 4.3 MMOL/L (3.5-5.1)
[2022-06-02] MEDS: LINEZOLID INJ 600 MG/300 ML PREMIX IV SCH ×2 (09:13→20:41)
[2022-06-02] MEDS: PANTOPRAZOLE 40 MG TABLET PO SCH (09:14)
[2022-06-02] MEDS ORDERED: MORPHINE 2 MG/1 ML SYRINGE IV ONE ×2 (10:39→14:54)
[2022-06-02] MEDS ORDERED: SODIUM CHLORIDE 0.9% 1,000 ML IV PRN (14:48)
[2022-06-02] MEDS: SODIUM CHLORIDE 0.9% 1,000 ML IV SCH (15:37)
[2022-06-03] MEDS ORDERED: diphenhydrAMINE 50 MG/1 ML VIAL IV ONE (00:45)
[2022-06-03] MEDS ORDERED: diphenhydrAMINE 50 MG/1 ML VIAL ONE (00:47)
[2022-06-03] MEDS: SODIUM CHLORIDE 0.9% 1,000 ML IV SCH ×2 (04:30→05:18)
[2022-06-03 05:41] LABS: Basophils # 0.1 10*3/uL (0.0-0.2); Basophils % 0.8 % (0.0-0.8); Eosinophils # 0.9 10*3/uL (0.0-0.87); Eosinophils % 7.2 % (0.00-10.9); Immature Granulocytes % 0.5 %; Immature Granulocytes Absolute 0.06 #; Lymphocytes % 31.9 % (21.2-54.2); Mean Corpuscular HGB Conc 33.8 GM/DL (32-36); Mean Corpuscular Volume 87.8 FL (87-102); Mean Platelet Volume 12.7 FL (9.6-12.0); Monocytes # 1.5 10*3/uL (0.11-0.8); Monocytes % 11.8 % (1.7-12.7); NRBC # 0.02 10*3/uL; Neutrophils % 47.8 % (38.7-73.9); Platelet Count 146 T/CUMM (130-400); Red Cell Distribution Width 18.5 % (9.3-17.3); White Blood Count 12.4 T/CUMM (4-12)
[2022-06-03 05:42] LABS: Hemoglobin 8.8 GM/DL (14.0-18.0); Red Blood Count 2.96 MC/CUMM (3.8-5.5)
[2022-06-03 05:54] LABS: Elliptocytes Few; Platelet Estimate Adequate
[2022-06-03 05:55] LABS: Hypochromia Slight; Sickle Cells Slight
[2022-06-03 06:11] LABS: Albumin 2.8 G/DL (3.4-5.0); Bilirubin,Total 2.9 MG/DL (0.20-1.00); Calcium 8.5 MG/DL (8.5-10.1); Osmolality,Calculated 273.8 MOS/KG (273-304); Potassium 4.1 MMOL/L (3.5-5.1); Total Protein 5.7 G/DL (6.4-8.2)
[2022-06-03] MEDS: LINEZOLID INJ 600 MG/300 ML PREMIX IV SCH (09:02)
[2022-06-03] MEDS: PANTOPRAZOLE 40 MG TABLET PO SCH (09:02)
[2022-06-03] MEDS ORDERED: oxyCODONE/ACETAMINOPHEN 5-325 MG TABLET PO PRN (09:36)
[2022-06-03 11:27] VITALS: BP 159/93
== END 2022-06-03 12:50 | disposition home or self-care (01) | DRG 812 ==
LOC: N.ED 15:20 → N.EDINP 23:44 → N.3E 05-29 02:21
PROVIDERS: ADMIT Internal Medicine; ATTEND Internal Medicine

== ENCOUNTER 2022-06-09 22:23 | Inpatient (IN) ==
[2022-06-09] MEDS ORDERED: SODIUM CHLORIDE 0.9% 1,000 ML IV STA (22:51)
[2022-06-09] MEDS ORDERED: MORPHINE 2 MG/1 ML SYRINGE IV STA (22:52)
[2022-06-09] MEDS ORDERED: ONDANSETRON 4 MG/2 ML VIAL IV ONE (22:52)
[2022-06-09 22:58] LABS: Basophils # 0.2 10*3/uL (0.0-0.2); Basophils % 0.8 % (0.0-0.8); Eosinophils # 1.5 10*3/uL (0.0-0.87); Eosinophils % 7.7 % (0.00-10.9); Hematocrit 20.3 VOL% (42.0-52.0); Hemoglobin 6.7 GM/DL (14.0-18.0); Lymphocytes % 35.8 % (21.2-54.2); Mean Corpuscular Volume 91.4 FL (87-102); Mean Platelet Volume 11.1 FL (9.6-12.0); Monocytes # 1.6 10*3/uL (0.11-0.8); Monocytes % 8.2 % (1.7-12.7); NRBC # 0.37 10*3/uL; Neutrophils % 46.5 % (38.7-73.9); Platelet Count 191 T/CUMM (130-400); Red Blood Count 2.22 MC/CUMM (3.8-5.5); Red Cell Distribution Width 19.4 % (9.3-17.3); White Blood Count 19.5 T/CUMM (4-12)
[2022-06-09] MEDS ORDERED: methylPREDNISolone SOD SUC 125 MG/2 ML VIAL IV STA (23:23)
[2022-06-09] MEDS ORDERED: fentaNYL 100 MCG/2 ML VIAL IV STA (23:23)
[2022-06-09 23:25] LABS: Mucus,Urine Occasional /LPF (Occasional); Squamous Epithelial Cell,Urine Occasional /HPF (0-10)
[2022-06-09 23:26] LABS: Bilirubin,Urine Negative (Negative); Blood, Urine Trace mg/dL (Negative); Glucose,Urine (UA) Negative (Negative); Ketones,Urine Negative (Negative); Nitrite,Urine Negative (Negative); Protein,Urine >=300 mg/dL (Negative); Urine Appearance Clear (Clear); Urine Color Yellow (Yellow); Urine Urobilinogen 0.2 eU/dL (<2.0)
[2022-06-09 23:32] LABS: Albumin 2.8 G/DL (3.4-5.0); Bilirubin,Total 1.2 MG/DL (0.20-1.00); Calcium 8.4 MG/DL (8.5-10.1); Osmolality,Calculated 279.5 MOS/KG (273-304); Total Protein 6.1 G/DL (6.4-8.2)
[2022-06-09 23:34] LABS: Basophilic Stippling 2+; Eosinophils 12 % (0-10); Lymphocytes 32 % (20-55); Nucleated Red Blood Cells 2 /100 WBC (0-5); Total Cells Counted 100
[2022-06-09 23:36] LABS: Elliptocytes 2+; Hypochromia Slight; Polychromasia Few
[2022-06-09] MEDS ORDERED: SODIUM CHLORIDE 0.9% 1,000 ML IV PRN (23:54)
[2022-06-09] MEDS ORDERED: guaiFENesin/DM ER 600-30 MG TABLET PO PRN (23:58)
[2022-06-09] MEDS ORDERED: ONDANSETRON 4 MG/2 ML VIAL IV PRN (23:58)
[2022-06-09] MEDS ORDERED: NICOTINE 21 MG/24 HR PATCH TRANSDERM PRN (23:58)
[2022-06-09] MEDS ORDERED: ZALEPLON 5 MG CAPSULE PO PRN (23:58)
[2022-06-10] MEDS: HYDROmorphone 1 MG/1 ML SYRINGE IV PRN ×7 (01:10→23:30)
[2022-06-10] MEDS: diphenhydrAMINE CAP 25 MG CAPSULE PO PRN ×2 (02:23→20:31)
[2022-06-10 06:53] LABS: Basophils # 0.1 10*3/uL (0.0-0.2); Basophils % 0.9 % (0.0-0.8); Eosinophils % 0.2 % (0.00-10.9); Hematocrit 27.1 VOL% (42.0-52.0); Hemoglobin 9.1 GM/DL (14.0-18.0); Immature Granulocytes % 1.8 %; Immature Granulocytes Absolute 0.23 #; Lymphocytes # 1.3 10*3/uL (1.4-4.0); Lymphocytes % 10.4 % (21.2-54.2); Mean Corpuscular HGB Conc 33.6 GM/DL (32-36); Mean Corpuscular Volume 90.6 FL (87-102); Mean Platelet Volume 11.5 FL (9.6-12.0); Monocytes # 0.1 10*3/uL (0.11-0.8); Monocytes % 0.6 % (1.7-12.7); NRBC # 0.37 10*3/uL; Neutrophils % 86.1 % (38.7-73.9); Platelet Count 210 T/CUMM (130-400); Red Blood Count 2.99 MC/CUMM (3.8-5.5); White Blood Count 12.7 T/CUMM (4-12)
[2022-06-10 07:01] LABS: Calcium 8.3 MG/DL (8.5-10.1); Potassium 4.8 MMOL/L (3.5-5.1)
[2022-06-10 07:21] LABS: Band Neutrophils 6 % (0-10); Lymphocytes 8 % (20-55); Nucleated Red Blood Cells 4 /100 WBC (0-5); Platelet Estimate Normal; Total Cells Counted 100
[2022-06-10 07:22] LABS: Anisocytosis 2+; Basophilic Stippling 1+; Macrocytosis Slight; Poikilocytosis Slight
[2022-06-10 07:23] LABS: Ovalocytes Few; Sickle Cells Few; Target Cells Few
[2022-06-10] MEDS: PANTOPRAZOLE 40 MG TABLET PO SCH (08:46)
[2022-06-10] MEDS: LINEZOLID 600 MG TABLET PO SCH ×2 (08:46→20:31)
[2022-06-10] MEDS: carvediloL 6.25 MG TABLET PO SCH ×2 (08:46→20:31)
[2022-06-10] MEDS: GABAPENTIN 300 MG CAPSULE PO SCH ×3 (08:46→20:31)
[2022-06-10] MEDS: ISOSORBIDE MONONITRATE 30 MG TABLET PO SCH (08:46)
[2022-06-10] MEDS: FOLIC ACID 1 MG TABLET PO SCH (20:31)
[2022-06-11] MEDS: HYDROmorphone 1 MG/1 ML SYRINGE IV PRN ×5 (06:23→21:44)
[2022-06-11] MEDS: ISOSORBIDE MONONITRATE 30 MG TABLET PO SCH (08:49)
[2022-06-11] MEDS: carvediloL 6.25 MG TABLET PO SCH ×2 (08:49→21:43)
[2022-06-11] MEDS: GABAPENTIN 300 MG CAPSULE PO SCH ×3 (08:50→21:43)
[2022-06-11] MEDS: PANTOPRAZOLE 40 MG TABLET PO SCH (08:50)
[2022-06-11] MEDS: LINEZOLID 600 MG TABLET PO SCH ×2 (08:50→21:43)
[2022-06-11 09:34] LABS: Basophils # 0.2 10*3/uL (0.0-0.2); Basophils % 0.8 % (0.0-0.8); Eosinophils # 0.7 10*3/uL (0.0-0.87); Hematocrit 27.2 VOL% (42.0-52.0); Immature Granulocytes % 0.7 %; Immature Granulocytes Absolute 0.17 #; Lymphocytes # 7.9 10*3/uL (1.4-4.0); Lymphocytes % 33.9 % (21.2-54.2); Mean Corpuscular HGB Conc 33.1 GM/DL (32-36); Mean Corpuscular Volume 89.5 FL (87-102); Mean Platelet Volume 10.7 FL (9.6-12.0); Monocytes # 1.6 10*3/uL (0.11-0.8); Monocytes % 6.7 % (1.7-12.7); NRBC # 0.55 10*3/uL; Neutrophils % 54.9 % (38.7-73.9); Platelet Count 222 T/CUMM (130-400); Red Blood Count 3.04 MC/CUMM (3.8-5.5); Red Cell Distribution Width 18.6 % (9.3-17.3); White Blood Count 23.3 T/CUMM (4-12)
[2022-06-11 09:52] LABS: Albumin 2.9 G/DL (3.4-5.0); Bilirubin,Total 1.7 MG/DL (0.20-1.00); Calcium 8.4 MG/DL (8.5-10.1); Potassium 4.2 MMOL/L (3.5-5.1); Total Protein 6.1 G/DL (6.4-8.2)
[2022-06-11 10:02] LABS: Eosinophils 4 % (0-10); Hypochromia 1+; Lymphocytes 41 % (20-55); Nucleated Red Blood Cells 4 /100 WBC (0-5); Total Cells Counted 100
[2022-06-11 10:03] LABS: Anisocytosis 1+; Pappenheimer Bodies Few; Target Cells Few
[2022-06-11 10:04] LABS: Ovalocytes Slight; Polychromasia Slight; Sickle Cells Slight
[2022-06-11 10:05] LABS: Platelet Estimate Normal
[2022-06-11] MEDS: FOLIC ACID 1 MG TABLET PO SCH (21:43)
[2022-06-12] MEDS: HYDROmorphone 1 MG/1 ML SYRINGE IV PRN ×2 (01:56→07:55)
[2022-06-12 04:55] LABS: Basophils # 0.1 10*3/uL (0.0-0.2); Basophils % 0.8 % (0.0-0.8); Eosinophils % 5.2 % (0.00-10.9); Hematocrit 28.5 VOL% (42.0-52.0); Hemoglobin 9.2 GM/DL (14.0-18.0); Immature Granulocytes % 0.4 %; Immature Granulocytes Absolute 0.08 #; Lymphocytes # 6.4 10*3/uL (1.4-4.0); Lymphocytes % 34.5 % (21.2-54.2); Mean Corpuscular HGB Conc 32.3 GM/DL (32-36); Mean Corpuscular Volume 92.8 FL (87-102); Monocytes # 1.3 10*3/uL (0.11-0.8); Monocytes % 6.9 % (1.7-12.7); NRBC # 0.45 10*3/uL; Neutrophils % 52.2 % (38.7-73.9); Platelet Count 206 T/CUMM (130-400); Red Blood Count 3.07 MC/CUMM (3.8-5.5); Red Cell Distribution Width 18.7 % (9.3-17.3); White Blood Count 18.5 T/CUMM (4-12)
[2022-06-12 05:19] LABS: Albumin 2.7 G/DL (3.4-5.0); Calcium 8.3 MG/DL (8.5-10.1); Osmolality,Calculated 280.5 MOS/KG (273-304); Total Protein 6.2 G/DL (6.4-8.2)
[2022-06-12 06:05] LABS: Eosinophils 8 % (0-10); Lymphocytes 34 % (20-55); Nucleated Red Blood Cells 4 /100 WBC (0-5); Total Cells Counted 100
[2022-06-12 06:06] LABS: Anisocytosis 1+; Hypochromia 1+; Ovalocytes Slight
[2022-06-12 06:07] LABS: Pappenheimer Bodies Few; Polychromasia Slight; Sickle Cells Slight
[2022-06-12 06:08] LABS: Platelet Estimate Normal
[2022-06-12 08:08] VITALS: BP 163/105
[2022-06-12] MEDS: carvediloL 6.25 MG TABLET PO SCH (08:57)
[2022-06-12] MEDS: ISOSORBIDE MONONITRATE 30 MG TABLET PO SCH (08:57)
[2022-06-12] MEDS: LINEZOLID 600 MG TABLET PO SCH (08:57)
[2022-06-12] MEDS: PANTOPRAZOLE 40 MG TABLET PO SCH (08:57)
[2022-06-12] MEDS: GABAPENTIN 300 MG CAPSULE PO SCH (08:57)
== END 2022-06-12 11:00 | disposition home or self-care (01) | DRG 812 ==
LOC: N.ED 22:23 → N.EDINP 23:58 → N.5E 06-10 00:46
PROVIDERS: ADMIT Family Medicine; ATTEND Family Medicine